=== PATIENT | male | born 1935 | race Hispanic/Latino ===

== ENCOUNTER 2018-01-18 18:49 | Inpatient (IN) | payer MEDICAID, SELFPAY ==
--- NOTE | 2018-01-18 19:55 | RAD ---
RIGHT FOOT THREE VIEWS: 01/18/18 COMPARISON: None. HISTORY: Swelling of the toes. FINDINGS: No radiopaque foreign body or subcutaneous gas. No displaced fracture or evidence of dislocation. The re is enthesophyte formation at the insertion of the Achilles tendon in origin of the plantar aponeur osis. There is mild dorsal soft tissue swelling involving the forefoot, which may be inflammatory in nature. IMPRESSION: No acute osseous abnormality. Please see above discussion. POS: [facility]
[2018-01-18 23:16] LABS: #Basophils 0.1 thou/uL (0.0-0.2); #Eosinphils 0.1 thou/uL (0.0-0.7); #Lymphocytes 1.4 thou/uL (1.20-3.40); #Monocytes 0.7 thou/uL (0.11-0.59); #Neutrophils 8.6 thou/uL (1.40-6.50); %Basophils 0.6 % (0.0-1.0); %Eosinophils 0.8 % (0.0-10.0); %Lymphocytes 12.7 % (21.0-51.0); %Monocytes 6.5 % (0.0-10.0); %Neutrophils 79.4 % (42.0-75.0); Hemoglobin 12.7 g/dL (14.0-18.0); Mean Corpuscular HGB CONC 34.9 g/dL (32.0-36.0); Mean Corpuscular Hemoglobin 31.6 pg (27.0-31.0); Mean Corpuscular Volume 90.4 fL (78.0-98.0); Mean Platelet Volume 6.6 fL (7.4-10.4); Platelet Count 315 thou/uL (130-400); RBC Distribution Width 11.9 % (11.5-14.5); Red Blood Cell (RBC) Count 4.02 mill/uL (4.70-6.10); White Blood Cell (WBC) Count 10.8 thou/uL (4.8-10.8)
[2018-01-18 23:40] LABS: ALT (SGPT) 17 U/L (8-55); AST (SGOT) 16 U/L (5-34); Albumin 4.6 g/dL (3.4-4.8); Alkaline Phosphatase 80 U/L (40-150); Anion Gap 14 mmol/L (10-20); BUN (Urea Nitrogen) 25 mg/dL (8.4-25.7); Bilirubin, Total 0.5 mg/dL (0.2-1.2); CRP (Inflammatory) 2.99 mg/dL (= or < 0.5); Calc. Creatinine Clearance 0 mL/min (70-130); Calcium 9.7 mg/dL (7.8-10.44); Carbon Dioxide 25 mmol/L (23-31); Chloride 99 mmol/L (98-107); Estimated GFR-MDRD 45; Globulin 3.4 g/dL (2.4-3.5); Glucose 144 mg/dL (83-110); Potassium 4.6 mmol/L (3.5-5.1); Sodium 133 mmol/L (136-145)
[2018-01-18] MEDS ORDERED: HYDROcodone/Acetaminophen 5/325 mg Tablet ONE (23:45)
[2018-01-19] MEDS: cefTRIAXone\\ROCEPHIN 2 GM in Sodium Chloride 0.9% 100 ML IVPB SCH ×2 (01:14→02:36)
[2018-01-19] MEDS ORDERED: Ondansetron HCl/PF 4 MG/2 ML Vial IVP PRN ×2 (01:40→05:11)
[2018-01-19] MEDS ORDERED: Acetaminophen 325 MG TAB PO PRN (01:40)
[2018-01-19] MEDS ORDERED: Ondansetron ODT 4 MG TAB SL PRN (01:40)
[2018-01-19] MEDS ORDERED: traZODone HCl 50 MG TAB PO PRN (05:11)
[2018-01-19] MEDS ORDERED: Dextrose 50% Abboject 50 ML SYRINGE SLOW IVP PRN (05:11)
[2018-01-19] MEDS ORDERED: Dextrose 5% in Water 1,000 ML IV PRN (05:11)
[2018-01-19] MEDS: HYDROcodone/Acetaminophen 10/325 mg Tablet PO PRN (05:35)
[2018-01-19] MEDS: Piperacillin/Tazobactam 3.375 GM in Sodium Chloride 0.9% 100 ML IVPB SCH ×3 (06:13→17:46)
--- NOTE | 2018-01-19 07:42 | HP ---
PRIMARY CARE PHYSICIAN: Dr. Jeancarlos Paris. CHIEF COMPLAINT: Pain and discoloration in the right foot. HISTORY OF PRESENT ILLNESS: Mr. Lopez is a very pleasant 82-year-old gentleman that has a history of diabetes and hypertension. He says that about 6 months ago, he noticed a small little pimple on his toe and it got progressively worse with time. He had seen his primary care physician who has pre scribed some oral as well as topical antibiotics. However, it has not improved and he got progressiv e pulsating cramping like pain in the foot as well as redness, swelling, and discoloration and as a r esult, he came to the emergency room for evaluation. He denies having any injury or hitting the foot against anything. He denies any fevers or chills, no nausea, no vomiting, and he has not noticed an y drainage from the area; however, due to the dark discoloration of the toes and the length of time t hat he has had the infection, he is being admitted for further evaluation. REVIEW OF SYSTEMS: All systems were reviewed and are negative except for that mentioned in the histo ry of present illness. PAST MEDICAL HISTORY: Significant for diabetes mellitus, hypertension, and prostate problems. PAST SURGICAL HISTORY: He has had a hernia repair. ALLERGIES: No known drug allergies. FAMILY HISTORY: Significant for diabetes. SOCIAL HISTORY: He is a nonsmoker, nondrinker. He has 6 children and he is . CURRENT MEDICATIONS: Include tramadol 50 mg as needed, aspirin 81 mg daily, losartan 50 mg daily, ba citracin topical, Flomax 0.4 mg daily, Metformin 850 mg twice a day, Humulin NPH 40 units in the morn ing and 20 units in the evening and regular insulin 10 units twice a day and the tramadol as Ultracet 1 tablet at bedtime. PHYSICAL EXAMINATION: GENERAL: He is alert and oriented. He appears to be in no acute distress. He is well-developed and well-nourished, in no acute distress. VITAL SIGNS: Blood pressure was 169/80, heart rate 79, respiratory rate of 18, temperature is 98.1, O2 sat is 97% on room air. HEENT: His pupils are equal, round, and reactive. Extraocular muscles are intact. Sclerae are anic teric. Throat no erythema, no exudates. NECK: No adenopathy, no bruits. LUNGS: Clear to auscultation. There is no wheezing, no rales. CARDIOVASCULAR: He had a normal S1, S2. I did not appreciate an S3 or S4. No murmurs, clicks, no r ubs. ABDOMEN: Soft, it is obese, it is nontender, nondistended. Positive for bowel sounds. No rebound o r guarding. EXTREMITIES: He has got some dark discoloration of the right foot about up to the mid calf level. Hilary vila has a dark eschar on the fourth toe, it is essentially almost completely dark purplish to black in color and a small punctate lesion on the first toe with some underlying callus. His dorsalis pedis p ulses were palpable, but they are diminished. He did, however, have good capillary refill. The left foot did not demonstrate any significant lesions and he did have some swelling in the foot as well. NEUROLOGIC: The exam is nonfocal. LABORATORY DATA AND IMAGING: White blood cell count is 10.8, hemoglobin 12.7, hematocrit is 36.4, pl atelet count is 315. Sodium 136, potassium 4.6, chloride is 99, CO2 is 25, BUN of 25, creatinine 1.5 , glucose is 144. C-reactive protein is 2.99. He had some plain films done of the foot and there wa s no obvious osseous abnormality. ASSESSMENT AND PLAN: This is a pleasant 82-year-old gentleman who presents with a diabetic foot infe ction primarily of the first and fourth toes. It is unclear whether or not he also has some vascular compromise there as well. He will be admitted to the medical floor, started on broad spectrum IV an tibiotics. We will consider Zosyn and vancomycin initially. Plain films were negative; however, an MRI will be more sensitive. Therefore, we will order an MRI and will also get lower extremity arteri al Dopplers to screen for peripheral vascular disease. We will also need to get a wound care consult and he likely will need a surgical evaluation as well. 1. For diabetes, we will go ahead and hold off on metformin for right now due to the elevated creati nine. We will continue his insulin as well as a sliding scale. 2. We will continue his usual antihypertensive medications as well as p.r.n. medicines and he will a lso be placed on deep venous thrombosis and gastrointestinal prophylaxis.
--- NOTE | 2018-01-19 08:48 | ULT ---
DOPPLER ARTERIAL EVALUATION OF BOTH LOWER EXTREMITIES: INDICATION: Diabetic foot infection. FINDINGS: There are triphasic-appearing waveforms in the right common femoral artery through the right superfic ial femoral artery. A more bifid waveform is seen within the right popliteal artery with more monoph asic low-velocity antegrade waveform seen within the posterior tibial artery. Monophasic waveform is seen within the anterior tibial artery and right dorsalis pedis artery. There is a triphasic-appearing waveform within the left common femoral artery and left femoral artery . A more biphasic-appearing waveform is seen within the left popliteal artery with monophasic-appear ing waveforms within the foreleg vasculature. IMPRESSION: Findings most consistent with severe atherosclerotic disease of the foreleg vasculature. POS: [facility]
[2018-01-19] MEDS: Docusate 100 MG CAP PO SCH ×2 (09:41→20:21)
[2018-01-19] MEDS: Enoxaparin Sodium 40 MG/0.4 ML SYRINGE SC SCH (09:41)
[2018-01-19] MEDS: Aspirin 81 mg Enteric Coated Tablet PO SCH (09:41)
[2018-01-19] MEDS: Tamsulosin HCl 0.4 MG CAP PO SCH (09:41)
[2018-01-19] MEDS: Losartan 25 MG TAB PO SCH ×2 (09:41→20:17)
[2018-01-19] MEDS: HYDROcodone/Acetaminophen 5/325 mg Tablet PO PRN ×2 (09:57→20:18)
[2018-01-19] MEDS: NPH, Human Insulin Isophane 300 UNIT/3 ML VIAL SC SCH ×2 (10:19→20:21)
--- NOTE | 2018-01-19 12:25 | MRI ---
MRI OF THE RIGHT FOOT WITHOUT CONTRAST: INDICATION: Diabetic infection. TECHNIQUE: Multiplanar, multisequence MR images were obtained of the right foot without IV contrast. Motion art ifact heavily limits image detail. A surface marker was placed upon the dorsal medial aspect of the small digit of the right foot. FINDINGS: No definite marrow signal abnormality is evident to suggest overt changes of osteomyelitis. There is diffuse edema involving subcutaneous tissues of the foot which may be related to cellulitis or lymph edema. Image detail is heavily limited due to the extent of the motion artifact. There is some cam a in the intrinsic foot musculature which may be related to denervation or myositis. No definite diana inable fluid collection is evident. IMPRESSION: 1. Heavily limited exam due to motion artifact. 2. No overt changes to suggest the presence of osteomyelitis, particularly of the small digit. 3. Lymphedema versus cellulitis of the foot. 4. Denervation versus myositis of the forefoot intrinsic musculature. POS: [facility]
[2018-01-19] MEDS: Acetaminophen 325 MG TAB PO PRN (17:47)
[2018-01-19] MEDS ORDERED: Vancomycin HCl 1.5 GM in Sodium Chloride 0.9% 250 ML 300 ML IVPB SCH (18:00)
[2018-01-19] MEDS: HumaLOG 300 UNITS/3 ML VIAL SC PRN (20:20)
[2018-01-20] MEDS: Piperacillin/Tazobactam 3.375 GM in Sodium Chloride 0.9% 100 ML IVPB SCH ×2 (01:11→06:07)
[2018-01-20] MEDS: Acetaminophen 325 MG TAB PO PRN (04:26)
[2018-01-20 05:19] LABS: Anion Gap 15 mmol/L (10-20); BUN (Urea Nitrogen) 20 mg/dL (8.4-25.7); Calc. Creatinine Clearance 49 mL/min (70-130); Calcium 9.4 mg/dL (7.8-10.44); Carbon Dioxide 23 mmol/L (23-31); Chloride 100 mmol/L (98-107); Estimated GFR-MDRD 50; Glucose 94 mg/dL (83-110); Potassium 3.7 mmol/L (3.5-5.1); Sodium 134 mmol/L (136-145)
[2018-01-20 05:54] LABS: Band 12 % (5-11); Eosinophils 3 % (0-10); Hemoglobin 12.3 g/dL (14.0-18.0); Lymphocytes 10 % (21-51); MDiff Complete? YES; Mean Corpuscular HGB CONC 33.2 g/dL (32.0-36.0); Mean Corpuscular Hemoglobin 30.2 pg (27.0-31.0); Mean Corpuscular Volume 90.9 fL (78.0-98.0); Mean Platelet Volume 7.3 fL (7.4-10.4); Monocytes 4 % (0-10); Neutrophil 71 % (42-75); PLT Morphology Comment Appears Adequate; Platelet Count 294 thou/uL (130-400); Red Blood Cell (RBC) Count 4.07 mill/uL (4.70-6.10); White Blood Cell (WBC) Count 9.2 thou/uL (4.8-10.8)
[2018-01-20] MEDS: HYDROcodone/Acetaminophen 10/325 mg Tablet PO PRN (08:00)
[2018-01-20] MEDS: Losartan 25 MG TAB PO SCH ×2 (08:00→20:07)
[2018-01-20] MEDS: Docusate 100 MG CAP PO SCH ×2 (08:00→20:07)
[2018-01-20] MEDS: Tamsulosin HCl 0.4 MG CAP PO SCH (08:01)
[2018-01-20] MEDS: Enoxaparin Sodium 40 MG/0.4 ML SYRINGE SC SCH (08:01)
[2018-01-20] MEDS: Aspirin 81 mg Enteric Coated Tablet PO SCH (08:01)
[2018-01-20] MEDS ORDERED: Prevnar 13-Val Conj/PF 0.5 ML SYRINGE IM ONE (09:00)
[2018-01-20] MEDS: NPH, Human Insulin Isophane 300 UNIT/3 ML VIAL SC SCH ×2 (09:49→20:07)
[2018-01-20] MEDS: Cefepime 2 GM in Sodium Chloride 0.9% 100 ML IVPB SCH ×2 (11:45→20:06)
--- NOTE | 2018-01-20 15:10 | PDOC.PN ---
- Subjective Encounter Start Date: 01/20/18 Encounter Start Time: 10:50 Pt seen and examined, chart reviewd in its entirety. 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 No F/c, no N/V/D/C. no CP or sOB Stu abx well. no itching or rash All systems reviewed and neg x as above - Objective Resuscitation Status: Resuscitation Status FULL:Full Resuscitation MAR Reviewed: Yes Vital Signs & Weight: Vital Signs (12 hours) Temp Pulse Resp BP Pulse Ox 01/20/18 08:00 98.1 F 69 18 95 01/20/18 07:45 98.1 F 69 18 152/75 H 94 L 01/20/18 04:05 99.5 F Weight Admit Weight 189 lb Weight 189 lb 8 oz I&O: 01/19/18 01/20/18 01/21/18 06:59 06:59 06:59 Intake Total 220 2140 600 Balance 220 2140 600 Result Diagrams: 01/20/18 04:13 01/20/18 04:13 Additional Labs: Accuchecks 01/20/18 01/20/18 01/19/18 11:27 02:53 19:59 POC Glucose 161 H 88 228 H 01/19/18 16:52 POC Glucose 150 H Radiology Reviewed by me: Yes Phys Exam - Physical Examination Constitutional: NAD HEENT: PERRLA, moist MMs, sclera anicteric, oral pharynx no lesions Neck: no nodes, no JVD, supple, full ROM Respiratory: no wheezing, no rales, no rhonchi, clear to auscultation bilateral Cardiovascular: RRR, no significant murmur, no rub Gastrointestinal: no distention, positive bowel sounds Musculoskeletal: no edema Neurological: non-focal, normal sensation, moves all 4 limbs Lymphatic: no nodes Psychiatric: normal affect, A&O x 3 Skin: no rash, normal turgor, cap refill <2 seconds Deviation from normal: 2+ fem, 1+ popliteal, thready barely palp PT bilaterally. -: 4th toe dry gangrene on right, DNU distal tip of hallux Dx/Plan (1) Cellulitis and abscess of foot, except toes Code(s): L03.119 - CELLULITIS OF UNSPECIFIED PART OF LIMB; L02.619 - CUTANEOUS ABSCESS OF UNSPECIFIED FOOT Status: Acute Comment: right dorsal foot, looks streptococcal, Clinda X 72h, Cefepime for now. to ancef soon. MRI neg for osteo (2) Ischemic necrosis of toe Code(s): I96 - GANGRENE, NOT ELSEWHERE CLASSIFIED Status: Acute Comment: 4th toe of right foot. dont think we can amputate because proximal wound would nto heal. suspect would need minimum of TMA. Abx for now, watch, may need to get vascular surgery involved (3) Ischemic ulcer of toe of right foot Code(s): L97.519 - NON-PRS CHRONIC ULCER OTH PRT RIGHT FOOT W UNSP SEVERITY Status: Acute Qualifiers: Non-pressure ulcer stage: with fat layer exposed Qualified Code(s): L97.512 - Non-pressure chronic ulcer of other part of right foot with fat layer exposed Comment: John 2 (4) DM2 (diabetes mellitus, type 2) Status: Chronic Qualifiers: Diabetes mellitus senior living insulin use: unspecified terminal press operator insulin use status Diabetes mellitus complication status: with neurologic complications Diabetes mellitus complication detail: with polyneuropathy Qualified Code(s): E11.42 - Type 2 diabetes mellitus with diabetic polyneuropathy (5) HTN (hypertension) Code(s): I10 - ESSENTIAL (PRIMARY) HYPERTENSION Status: Chronic Qualifiers: Hypertension type: essential hypertension Qualified Code(s): I10 - Essential (primary) hypertension (6) PVD (peripheral vascular disease) with claudication Code(s): I73.9 - PERIPHERAL VASCULAR DISEASE, UNSPECIFIED Status: Chronic Comment: BLE, 3+ triphasic in deep femoral, biphasic through popliteal, monophasic to BLE, nonpalpable distal pulses. - Plan cont current plan of care, continue antibiotics * .
[2018-01-20] MEDS ORDERED: Clindamycin/D5W 300 MG/50 ML BAG IVPB SCH (15:15)
[2018-01-20] MEDS: Clindamycin/D5W 900 MG in Premix Bag 1 BAG IVPB SCH (16:02)
[2018-01-20] MEDS: HumaLOG 300 UNITS/3 ML VIAL SC PRN (20:08)
[2018-01-21] MEDS: Clindamycin/D5W 900 MG in Premix Bag 1 BAG IVPB SCH ×4 (00:05→23:11)
[2018-01-21] MEDS: HYDROcodone/Acetaminophen 5/325 mg Tablet PO PRN (00:05)
[2018-01-21 04:42] LABS: #Eosinphils 0.2 thou/uL (0.0-0.7); #Lymphocytes 1.7 thou/uL (1.20-3.40); #Monocytes 0.9 thou/uL (0.11-0.59); #Neutrophils 6.3 thou/uL (1.40-6.50); %Basophils 0.4 % (0.0-1.0); %Eosinophils 1.8 % (0.0-10.0); %Lymphocytes 18.4 % (21.0-51.0); %Monocytes 10.1 % (0.0-10.0); %Neutrophils 69.4 % (42.0-75.0); Hemoglobin 11.5 g/dL (14.0-18.0); Mean Corpuscular HGB CONC 34.5 g/dL (32.0-36.0); Mean Corpuscular Hemoglobin 31.3 pg (27.0-31.0); Mean Corpuscular Volume 90.7 fL (78.0-98.0); Platelet Count 273 thou/uL (130-400); RBC Distribution Width 11.9 % (11.5-14.5); Red Blood Cell (RBC) Count 3.68 mill/uL (4.70-6.10); White Blood Cell (WBC) Count 9.1 thou/uL (4.8-10.8)
[2018-01-21 04:54] LABS: Hemoglobin A1c 6.7 % (4.0-6.0)
[2018-01-21 04:58] LABS: Anion Gap 13 mmol/L (10-20); BUN (Urea Nitrogen) 20 mg/dL (8.4-25.7); Calc. Creatinine Clearance 53 mL/min (70-130); Calcium 9.1 mg/dL (7.8-10.44); Carbon Dioxide 25 mmol/L (23-31); Chloride 103 mmol/L (98-107); Estimated GFR-MDRD 55; Glucose 62 mg/dL (83-110); Magnesium 2.2 mg/dL (1.6-2.6); Potassium 3.8 mmol/L (3.5-5.1); Sodium 137 mmol/L (136-145)
[2018-01-21] MEDS: HYDROcodone/Acetaminophen 10/325 mg Tablet PO PRN ×2 (08:11→20:34)
[2018-01-21] MEDS: Aspirin 81 mg Enteric Coated Tablet PO SCH (08:12)
[2018-01-21] MEDS: Losartan 25 MG TAB PO SCH ×2 (08:12→20:34)
[2018-01-21] MEDS: Tamsulosin HCl 0.4 MG CAP PO SCH (08:12)
[2018-01-21] MEDS: Docusate 100 MG CAP PO SCH ×2 (08:12→20:33)
[2018-01-21] MEDS: Enoxaparin Sodium 40 MG/0.4 ML SYRINGE SC SCH (08:13)
[2018-01-21] MEDS: NPH, Human Insulin Isophane 300 UNIT/3 ML VIAL SC SCH ×2 (08:13→21:25)
[2018-01-21] MEDS: Cefepime 2 GM in Sodium Chloride 0.9% 100 ML IVPB SCH ×3 (09:41→21:35)
--- NOTE | 2018-01-21 14:24 | PDOC.PN ---
- Subjective Encounter Start Date: 01/21/18 Encounter Start Time: 14:22 Subjective: reports some pain in the affected toe.no fever/chills -: weak.care discussed w son at bedside - Objective Resuscitation Status: Resuscitation Status FULL:Full Resuscitation MAR Reviewed: Yes Vital Signs & Weight: Vital Signs (12 hours) Temp Pulse Resp BP Pulse Ox 01/21/18 08:09 97.5 F L 70 16 162/67 H 96 01/21/18 08:00 97.5 F L 70 16 97 Weight Admit Weight 189 lb Weight 189 lb 8 oz I&O: 01/20/18 01/21/18 01/22/18 06:59 06:59 06:59 Intake Total 2140 1510 720 Balance 2140 1510 720 Result Diagrams: 01/21/18 03:53 01/21/18 03:53 Additional Labs: Accuchecks 01/21/18 01/21/18 01/20/18 11:47 05:06 20:04 POC Glucose 133 H 67 L 236 H 01/20/18 16:47 POC Glucose 260 H Microbiology 01/18/18 23:30 Venous blood - Left Arm Blood Culture - Preliminary NO GROWTH AT 48 HOURS 01/18/18 23:10 Venous blood - Right Arm Blood Culture - Preliminary NO GROWTH AT 48 HOURS labs reviewed Radiology Reviewed by me: Yes (Arterial doppler LE-severe b/l disease) Phys Exam - Physical Examination Constitutional: NAD HEENT: PERRLA, moist MMs, sclera anicteric, oral pharynx no lesions Neck: no nodes, no JVD, supple, full ROM Respiratory: no wheezing, no rales, no rhonchi, clear to auscultation bilateral Cardiovascular: RRR, no significant murmur Gastrointestinal: soft, non-tender, no distention, positive bowel sounds Musculoskeletal: no edema, pulses present Toe dressings Neurological: non-focal, normal sensation, moves all 4 limbs Psychiatric: normal affect, A&O x 3 Dx/Plan (1) Ischemic necrosis of toe Code(s): I96 - GANGRENE, NOT ELSEWHERE CLASSIFIED Status: Acute (2) Ischemic ulcer of toe of right foot Code(s): L97.519 - NON-PRS CHRONIC ULCER OTH PRT RIGHT FOOT W UNSP SEVERITY Status: Acute Qualifiers: Non-pressure ulcer stage: with fat layer exposed Qualified Code(s): L97.512 - Non-pressure chronic ulcer of other part of right foot with fat layer exposed Comment: John 2 (3) DM2 (diabetes mellitus, type 2) Status: Chronic Qualifiers: Diabetes mellitus assisted insulin use: unspecified marketing administrative assistant insulin use status Diabetes mellitus complication status: with neurologic complications Diabetes mellitus complication detail: with polyneuropathy Qualified Code(s): E11.42 - Type 2 diabetes mellitus with diabetic polyneuropathy (4) HTN (hypertension) Code(s): I10 - ESSENTIAL (PRIMARY) HYPERTENSION Status: Chronic Qualifiers: Hypertension type: essential hypertension Qualified Code(s): I10 - Essential (primary) hypertension (5) PVD (peripheral vascular disease) with claudication Code(s): I73.9 - PERIPHERAL VASCULAR DISEASE, UNSPECIFIED Status: Chronic Comment: BLE, 3+ triphasic in deep femoral, biphasic through popliteal, monophasic to BLE, nonpalpable distal pulses. - Plan plan discussed w/ family, continue antibiotics, out of bed/ambulate, DVT proph w /SCDs Pt w gangrene of R 4th toe w severe PVD on doppler -: will likley need amputation .will consult GS and ID -: cont ABx for now. Follow Blood cx -: may need CTS consult prior to DC -: Blood sugar labile.cont meds as below.watch for hypoglycemia.reduce Novolin * .am labs * Plan discussed w son in detail Review of Systems - Review of Systems Constitutional: weakness, malaise. negative: fever, chills, sweats, other Respiratory: negative: Cough, Dry, Shortness of Breath, Hemoptysis, SOB with Excertion, Pleuritic Pain, Sputum, Wheezing Cardiovascular: negative: chest pain, palpitations, orthopnea, paroxysmal nocturnal dyspnea, edema, light headedness, other Gastrointestinal: negative: Nausea, Vomiting, Abdominal Pain, Diarrhea, Constipation, Melena, Hematochezia, Other Genitourinary: negative: Dysuria, Frequency, Incontinence, Hematuria, Retention , Other Musculoskeletal: Foot Pain. negative: Neck Pain, Shoulder Pain, Arm Pain, Back Pain, Hand Pain, Leg Pain, Other Neurological: negative: Weakness, Numbness, Incoordination, Change in Speech, Confusion, Seizures, Other - Medications/Allergies Allergies/Adverse Reactions: Allergies Allergy/AdvReac Type Severity Reaction Status Date / Time No Known Allergies Allergy Unverified 01/18/18 23:55 Medications: Current Medications Acetaminophen (Tylenol) 650 mg PO Q4H PRN PRN Reason: Headache/Fever or Pain Last Admin: 01/20/18 04:26 Dose: 650 mg Hydrocodone Bitart/Acetaminophen ([place] 5/325) 1 tab PO Q4H PRN PRN Reason: Moderate Pain (4-6) Last Admin: 01/19/18 20:18 Dose: 1 tab Hydrocodone Bitart/Acetaminophen ([place] 10/325) 2 tab PO Q4H PRN PRN Reason: Severe Pain (7-10) Last Admin: 01/21/18 08:11 Dose: 2 tab Hydrocodone Bitart/Acetaminophen ([place] 5/325) 2 tab PO Q4H PRN PRN Reason: Moderate Pain (4-6) Last Admin: 01/21/18 00:05 Dose: 2 tab Aspirin (Ecotrin) 81 mg PO DAILY COUNTS INCLUDE 234 BEDS AT THE [facility] Last Admin: 01/21/18 08:12 Dose: 81 mg Dextrose/Water (Dextrose 50%) 25 gm SLOW IVP PRN PRN PRN Reason: Hypoglycemia Docusate Sodium (Colace) 100 mg PO BID COUNTS INCLUDE 234 BEDS AT THE [facility] Last Admin: 01/21/18 08:12 Dose: 100 mg Enoxaparin Sodium (Lovenox) 40 mg SC 0900 COUNTS INCLUDE 234 BEDS AT THE [facility] Last Admin: 01/21/18 08:13 Dose: 40 mg Glucagon (Glucagon) 1 mg IM PRN PRN PRN Reason: Hypoglycemia Hydralazine HCl (Apresoline) 10 mg SLOW IVP Q3H PRN PRN Reason: SBP > 180 Dextrose/Water (D5w) 1,000 mls @ 0 mls/hr IV .Q0M PRN; As Directed PRN Reason: Hypoglycemia Cefepime HCl 2 gm/ Sodium (Chloride) 100 mls @ 200 mls/hr IVPB Q12HR COUNTS INCLUDE 234 BEDS AT THE [facility] Last Admin: 01/21/18 09:41 Dose: 100 mls Clindamycin Phosphate/Dextrose (900 mg/ Device) 50 mls @ 100 mls/hr IVPB 0800, 1600,2359 COUNTS INCLUDE 234 BEDS AT THE [facility] Last Admin: 01/21/18 08:13 Dose: 50 mls Insulin Human Lispro (Humalog) 0 units SC .MODERATE SLIDING SC PRN PRN Reason: Moderate Correctional Scale Insulin Human Lispro (Humalog) 0 units SC .BEDTIME SLIDING SC PRN PRN Reason: Bedtime Correctional Scale Last Admin: 01/20/18 20:08 Dose: 2 unit Insulin Human NPH (Humulin N) 20 unit SC HS COUNTS INCLUDE 234 BEDS AT THE [facility] Last Admin: 01/20/18 20:07 Dose: 20 unit Insulin Human NPH (Humulin N) 40 unit SC DAILY COUNTS INCLUDE 234 BEDS AT THE [facility] Last Admin: 01/21/18 08:13 Dose: 40 unit Lactulose (Lactulose) 20 gm PO DAILYPRN PRN PRN Reason: Constipation Losartan Potassium (Cozaar) 50 mg PO BID COUNTS INCLUDE 234 BEDS AT THE [facility] Last Admin: 01/21/18 08:12 Dose: 50 mg Ondansetron HCl (Zofran Odt) 4 mg PO Q6H PRN PRN Reason: Nausea/Vomiting Ondansetron HCl (Zofran) 4 mg IVP Q6H PRN PRN Reason: Nausea/Vomiting Tamsulosin HCl (Flomax) 0.4 mg PO DAILY COUNTS INCLUDE 234 BEDS AT THE [facility] Last Admin: 01/21/18 08:12 Dose: 0.4 mg Trazodone HCl (Desyrel) 50 mg PO HSPRN PRN PRN Reason: Insomnia Last Admin: 01/19/18 20:18 Dose: 50 mg
[2018-01-22 04:52] LABS: #Basophils 0.1 thou/uL (0.0-0.2); #Eosinphils 0.2 thou/uL (0.0-0.7); #Lymphocytes 1.4 thou/uL (1.20-3.40); #Monocytes 0.6 thou/uL (0.11-0.59); #Neutrophils 5.2 thou/uL (1.40-6.50); %Basophils 0.7 % (0.0-1.0); %Eosinophils 2.7 % (0.0-10.0); %Lymphocytes 19.2 % (21.0-51.0); %Monocytes 7.5 % (0.0-10.0); %Neutrophils 69.9 % (42.0-75.0); Hemoglobin 11.2 g/dL (14.0-18.0); Mean Corpuscular HGB CONC 34.1 g/dL (32.0-36.0); Mean Corpuscular Hemoglobin 30.7 pg (27.0-31.0); Platelet Count 296 thou/uL (130-400); RBC Distribution Width 11.8 % (11.5-14.5); Red Blood Cell (RBC) Count 3.65 mill/uL (4.70-6.10); White Blood Cell (WBC) Count 7.5 thou/uL (4.8-10.8)
[2018-01-22 04:58] LABS: Anion Gap 12 mmol/L (10-20); BUN (Urea Nitrogen) 19 mg/dL (8.4-25.7); Calc. Creatinine Clearance 52 mL/min (70-130); Carbon Dioxide 23 mmol/L (23-31); Chloride 102 mmol/L (98-107); Estimated GFR-MDRD 53; Glucose 202 mg/dL (83-110); Sodium 133 mmol/L (136-145)
[2018-01-22] MEDS: Clindamycin/D5W 900 MG in Premix Bag 1 BAG IVPB SCH ×3 (08:04→23:27)
[2018-01-22] MEDS: HYDROcodone/Acetaminophen 10/325 mg Tablet PO PRN ×2 (08:06→17:40)
[2018-01-22] MEDS: Docusate 100 MG CAP PO SCH ×2 (08:36→20:05)
[2018-01-22] MEDS: Aspirin 81 mg Enteric Coated Tablet PO SCH (08:36)
[2018-01-22] MEDS: Enoxaparin Sodium 40 MG/0.4 ML SYRINGE SC SCH (08:36)
[2018-01-22] MEDS: NPH, Human Insulin Isophane 300 UNIT/3 ML VIAL SC SCH (08:36)
[2018-01-22] MEDS: Tamsulosin HCl 0.4 MG CAP PO SCH (08:36)
--- NOTE | 2018-01-22 09:37 | CON ---
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 He presents with right foot problems. He has been admitted by H ospitalist Service from the emergency room 01/19/2018. He has been on clindamycin and cefepime. He has dry gangrene of his right fourth toe with cellulitis above ankle which has resolved with antibiot ic therapy. He has had plain films, MRIs revealing soft tissue changes, but no osteo. He has since August experienced a shoe irritation of his left great toe tip which is improved with local wound c are. The patient has been treating this with local wound care prescribed in [place], an antiseptic sp ray, antibiotic cream he does not know the name of. He has had ultrasound evaluation vascular reveal ing disease in the SFA, probably stenosis, and below the knee disease. This correlates with physical findings. There are palpable femoral, popliteal pulses bilaterally. Non-palpable pedal pulses on e ither feet and very faintly dopplerable posterior tibial, nondopplerable dorsalis pedis right foot an d left foot. He has chronic venous stasis changes both feet and legs. He has some blistering of the skin, sloughing of skin over the distal foot dorsally. This has improved. Actually has had resolvi ng cellulitis. He has never smoked. His renal function is normal. GFR 53, creatinine 1.29, BUN 19. ALLERGIES: None. TOBACCO: None. ALCOHOL: None. MEDICATIONS: At home, he takes NPH insulin, tramadol, metformin, Lamisil, Flomax, losartan, aspirin, and the creams anesthetic spray as described. PAST SURGICAL HISTORY: Testicular surgery. PAST MEDICAL HISTORY: Noncontributory except for diabetes mellitus, insulin-dependent, hypertension, and prostate problems. He reports that he had a hernia repair, but the patient states he had testic ular problems, some testicular surgery. REVIEW OF SYSTEMS: Noncontributory. FAMILY HISTORY: Noncontributory. PHYSICAL EXAMINATION: VITAL SIGNS: Height 5 foot 10, 189 pounds, 27 BMI, 98.3, 73, 178/84. HEENT: Unremarkable. LUNGS: Clear to auscultation. CARDIAC: Regular rate and rhythm without murmur or gallop. ABDOMEN: Soft, nontender. EXTREMITIES: Palpable femoral and popliteal pulses bilaterally, nonpalpable distal pedal pulses bila terally. Chronic venous stasis changes to feet and lower legs. He has excoriation and granulation t issue at the tip of the right great toe. There is no infection. This appears to be healing. He sta yu this has been present since August. Right fourth toe was foul smelling and gangrene. He has e vidence of resolved cellulitis from his lower leg above the ankle. He has sloughing of the skin, bli stering skin over the distal forefoot at the base of the fourth phalanx. LABORATORY: Laboratories as noted. Sodium 133, potassium 4.0, BUN 19, creatinine 1.59, GFR 53. Acc u-Cheks 282 to 117. White count 7, hemoglobin 11.2, platelet count 296,000. ASSESSMENT AND PLAN: 1. Peripheral artery disease with a significant below the knee disease. He probably has some stenot ic disease in his SFA. Prior to performing any amputation, I would recommend a vascular study and wooten ve consulted Dr. Romo or Dr. Merino to see him regarding that. Would keep him n.p.o. in case they wo uld want to do that today. If they are not planning intervention today he could eat. He probably w ill need amputation of this toe in the next few days after a vascular evaluation 2. Diabetes mellitus, insulin dependent.
[2018-01-22] MEDS: Cefepime 2 GM in Sodium Chloride 0.9% 100 ML IVPB SCH ×2 (09:52→20:03)
[2018-01-22] MEDS: Losartan 25 MG TAB PO SCH ×2 (09:53→20:05)
--- NOTE | 2018-01-22 13:57 | PDOC.PN ---
- Subjective Encounter Start Date: 01/22/18 Encounter Start Time: 13:55 Subjective: feels better but still has significant pain in affected toe -: no fever/chills - Objective Resuscitation Status: Resuscitation Status FULL:Full Resuscitation MAR Reviewed: Yes Vital Signs & Weight: Vital Signs (12 hours) Temp Pulse Resp BP Pulse Ox 01/22/18 11:33 98.5 F 67 16 173/84 H 95 01/22/18 08:15 98.3 F 73 18 178/84 H 93 L 01/22/18 08:00 98.3 F 73 18 Weight Admit Weight 189 lb Weight 189 lb 8 oz I&O: 01/21/18 01/22/18 01/23/18 06:59 06:59 06:59 Intake Total 1510 1520 Balance 1510 1520 Result Diagrams: 01/22/18 03:57 01/22/18 03:57 Additional Labs: Accuchecks 01/22/18 01/22/18 01/21/18 11:37 05:39 20:09 POC Glucose 116 H 117 H 282 H 01/21/18 16:46 POC Glucose 173 H Microbiology 01/18/18 23:30 Venous blood - Left Arm Blood Culture - Preliminary NO GROWTH AT 48 HOURS 01/18/18 23:10 Venous blood - Right Arm Blood Culture - Preliminary NO GROWTH AT 48 HOURS labs reviewed Phys Exam - Physical Examination Constitutional: NAD HEENT: PERRLA, moist MMs, sclera anicteric, oral pharynx no lesions Neck: no nodes, no JVD, supple, full ROM Respiratory: no wheezing, no rales, no rhonchi, clear to auscultation bilateral Cardiovascular: RRR, no significant murmur Gastrointestinal: soft, non-tender, no distention, positive bowel sounds Musculoskeletal: no edema, pulses present Gangrenous R 4th toe,dry.shallow ulceration great toe tip & plantar surface Neurological: non-focal, normal sensation, moves all 4 limbs Psychiatric: normal affect, A&O x 3 Skin: no rash Dx/Plan (1) Ischemic necrosis of toe Code(s): I96 - GANGRENE, NOT ELSEWHERE CLASSIFIED Status: Acute (2) Ischemic ulcer of toe of right foot Code(s): L97.519 - NON-PRS CHRONIC ULCER OTH PRT RIGHT FOOT W UNSP SEVERITY Status: Acute Qualifiers: Non-pressure ulcer stage: with fat layer exposed Qualified Code(s): L97.512 - Non-pressure chronic ulcer of other part of right foot with fat layer exposed Comment: John 2 (3) Cellulitis and abscess of foot, except toes Code(s): L03.119 - CELLULITIS OF UNSPECIFIED PART OF LIMB; L02.619 - CUTANEOUS ABSCESS OF UNSPECIFIED FOOT Status: Acute Comment: right dorsal foot, looks streptococcal, Clinda X 72h, Cefepime for now. to ancef soon. MRI neg for osteo (4) DM2 (diabetes mellitus, type 2) Status: Chronic Qualifiers: Diabetes mellitus care home insulin use: unspecified watermaster insulin use status Diabetes mellitus complication status: with neurologic complications Diabetes mellitus complication detail: with polyneuropathy Qualified Code(s): E11.42 - Type 2 diabetes mellitus with diabetic polyneuropathy (5) HTN (hypertension) Code(s): I10 - ESSENTIAL (PRIMARY) HYPERTENSION Status: Chronic Qualifiers: Hypertension type: essential hypertension Qualified Code(s): I10 - Essential (primary) hypertension (6) PVD (peripheral vascular disease) with claudication Code(s): I73.9 - PERIPHERAL VASCULAR DISEASE, UNSPECIFIED Status: Chronic Comment: BLE, 3+ triphasic in deep femoral, biphasic through popliteal, monophasic to BLE, nonpalpable distal pulses. - Plan plan discussed w/ family, continue antibiotics, PT/OT, out of bed/ambulate, DVT proph w/SCDs cont emipric ABx. apprecaier GS and CTS input -: Arterial angiogram today w possible intervention if needed for PAD -: will likey need amputation of gangrenous toe. -: hemodynamically stable. -: insulin dose reduced yesterday for lower Bld suf=gars.monitor.ISS/accucheck * family updated.pt agreeable w plan * am labs Review of Systems - Review of Systems Constitutional: weakness, malaise. negative: fever, chills, sweats, other ENT: negative: Ear Pain, Ear Discharge, Nose Pain, Nose Discharge, Nose Congestion, Mouth Pain, Mouth Swelling, Throat Pain, Throat Swelling, Other Respiratory: negative: Cough, Dry, Shortness of Breath, Hemoptysis, SOB with Excertion, Pleuritic Pain, Sputum, Wheezing Cardiovascular: negative: chest pain, palpitations, orthopnea, paroxysmal nocturnal dyspnea, edema, light headedness, other Gastrointestinal: negative: Nausea, Vomiting, Abdominal Pain, Diarrhea, Constipation, Melena, Hematochezia, Other Genitourinary: negative: Dysuria, Frequency, Incontinence, Hematuria, Retention , Other Musculoskeletal: Foot Pain. negative: Neck Pain, Shoulder Pain, Arm Pain, Back Pain, Hand Pain, Leg Pain, Other Skin: negative: Rash, Lesions, Rick, Bruising, Other Neurological: negative: Weakness, Numbness, Incoordination, Change in Speech, Confusion, Seizures, Other - Medications/Allergies Allergies/Adverse Reactions: Allergies Allergy/AdvReac Type Severity Reaction Status Date / Time No Known Allergies Allergy Unverified 01/18/18 23:55 Medications: Current Medications Acetaminophen (Tylenol) 650 mg PO Q4H PRN PRN Reason: Headache/Fever or Pain Last Admin: 01/20/18 04:26 Dose: 650 mg Hydrocodone Bitart/Acetaminophen ([place] 10/325) 2 tab PO Q4H PRN PRN Reason: Severe Pain (7-10) Last Admin: 01/22/18 08:06 Dose: 2 tab Hydrocodone Bitart/Acetaminophen ([place] 5/325) 2 tab PO Q4H PRN PRN Reason: Moderate Pain (4-6) Last Admin: 01/21/18 00:05 Dose: 2 tab Aspirin (Ecotrin) 81 mg PO DAILY [facility] Last Admin: 01/22/18 08:36 Dose: Not Given Clonidine (Catapres) 0.1 mg PO Q4H PRN PRN Reason: SBP>160 Dextrose/Water (Dextrose 50%) 25 gm SLOW IVP PRN PRN PRN Reason: Hypoglycemia Docusate Sodium (Colace) 100 mg PO BID [facility] Last Admin: 01/22/18 08:36 Dose: Not Given Enoxaparin Sodium (Lovenox) 40 mg SC 0900 [facility] Last Admin: 01/22/18 08:36 Dose: Not Given Glucagon (Glucagon) 1 mg IM PRN PRN PRN Reason: Hypoglycemia Hydralazine HCl (Apresoline) 10 mg SLOW IVP Q3H PRN PRN Reason: SBP > 180 Dextrose/Water (D5w) 1,000 mls @ 0 mls/hr IV .Q0M PRN; As Directed PRN Reason: Hypoglycemia Clindamycin Phosphate/Dextrose (900 mg/ Device) 50 mls @ 100 mls/hr IVPB 0800, 1600,2359 [facility] Last Admin: 01/22/18 08:04 Dose: 50 mls Cefepime HCl 2 gm/ Sodium (Chloride) 100 mls @ 200 mls/hr IVPB Q12HR [facility] Last Admin: 01/22/18 09:52 Dose: 100 mls Insulin Human Lispro (Humalog) 0 units SC .MODERATE SLIDING SC PRN PRN Reason: Moderate Correctional Scale Insulin Human Lispro (Humalog) 0 units SC .BEDTIME SLIDING SC PRN PRN Reason: Bedtime Correctional Scale Last Admin: 01/20/18 20:08 Dose: 2 unit Insulin Human NPH (Humulin N) 20 unit SC HS [facility] Last Admin: 01/21/18 21:25 Dose: 20 unit Insulin Human NPH (Humulin N) 20 unit SC DAILY [facility] Last Admin: 01/22/18 08:36 Dose: Not Given Lactulose (Lactulose) 20 gm PO DAILYPRN PRN PRN Reason: Constipation Losartan Potassium (Cozaar) 50 mg PO BID [facility] Last Admin: 01/22/18 09:53 Dose: 50 mg Morphine Sulfate (Morphine) 2 mg SLOW IVP Q4H PRN PRN Reason: Severe Pain (7-10) Ondansetron HCl (Zofran Odt) 4 mg PO Q6H PRN PRN Reason: Nausea/Vomiting Ondansetron HCl (Zofran) 4 mg IVP Q6H PRN PRN Reason: Nausea/Vomiting Tamsulosin HCl (Flomax) 0.4 mg PO DAILY [facility] Last Admin: 01/22/18 08:36 Dose: Not Given Trazodone HCl (Desyrel) 50 mg PO HSPRN PRN PRN Reason: Insomnia Last Admin: 01/19/18 20:18 Dose: 50 mg
[2018-01-22] MEDS: hydrALAZINE 20 MG/ML VIAL SLOW IVP PRN (17:38)
[2018-01-22] MEDS: HumaLOG 300 UNITS/3 ML VIAL SC PRN (17:41)
--- NOTE | 2018-01-23 00:56 | CON ---
DATE OF CONSULTATION: 01/22/2018 REASON FOR CONSULTATION: Gangrene, right fourth toe. HISTORY OF PRESENT ILLNESS: An 82-year-old patient who has history of type 2 diabetes and hypertension and lives in [place], came here to visit relatives, reportedly has had chronic problems with his right foot and now has progressed to what appears to be overt gangrene fourth toe. He also has a chronic ulcer at the tip of the right first toe. REVIEW OF SYSTEMS: Denies any headaches, no change in visual symptoms, sore throat, odynophagia, dysphagia. No shortness of breath or chest pain, no cough. No abdominal pain, diarrhea, or genitourinary symptoms. No neurological symptoms. PAST MEDICAL HISTORY: Type 2 diabetes, hypertension, prostate enlargement. PAST SURGICAL HISTORY: Hernia repair. ALLERGIES: None. FAMILY HISTORY: Type 2 diabetes. SOCIAL HISTORY: Never a smoker, retired, lives in [place]. CURRENT MEDICATIONS: Include [place], cefepime, clindamycin, clonidine, glucagon , hydralazine, insulin, losartan, trazodone. PHYSICAL EXAMINATION: VITAL SIGNS: Essentially T-max 101.5 on 01/19, currently, normalized. BP 170/ 84, pulse 67. SKIN: Demonstrates the area of gangrene of the entire fourth toe. There is evidence of ulceration with a dark scab at the base, round shaped, measuring about 2 cm at the tip of the right first toe. There is evidence of onychodystrophy and onycholysis, thinning of the dermis in the right foot. Cap refill was delayed. No lymphadenopathy. HEENT: Noncontributory. NECK: Supple. LUNGS: With symmetric clear breath sounds. HEART: S1, S2, regular rate without murmurs. ABDOMEN: Soft, not distended or tender. No ascites. No bladder distention. EXTREMITIES: No joint inflammatory activity outside the involved area. Right popliteals are 1+, left popliteal 1+. In the right foot, I could not feel any dorsalis pedis or posterior tibialis pulses. He moves extremities equally. NEUROLOGIC: Cognitive function appears to be intact. LABORATORY AND DIAGNOSTIC DATA: White cell count 10.8 and 7.5, hemoglobin 11.2 , platelets 296,000. Chemistry: Creatinine 1.29, which is stable from admission. MRI, which was completed in the right lower extremity and it showed motion artifact, no overt changes suggestive of osteomyelitis. ASSESSMENT: Type 2 diabetes with evidence of peripheral vascular disease and gangrene fourth toe. DISCUSSION: The patient is supposed to undergo vascular evaluation to determine if he would be a candidate for immediate amputation or if he would need intervention if feasible to decrease the risk of failure of amputation due to extension of the area of necrosis. Antibiotics to be continued until the decision to amputate is completed. If the patient has microvascular disease if he is not amenable to revascularization and he would be at high risk for further higher levels of amputation. I would transition him to oral antimicrobials in the next few days as long as blood cultures remain negative, so summarizing vascular studies and then the decision regarding amputation if vascular studies determine feasibility of revascularization and improving the flow of blood to right foot, then that would decrease the risk of higher levels of amputation. Otherwise, he would probably end up with BKA sooner or later. TANVI
[2018-01-23] MEDS: HYDROcodone/Acetaminophen 5/325 mg Tablet PO PRN ×3 (01:33→16:32)
[2018-01-23 04:33] LABS: Anion Gap 13 mmol/L (10-20); BUN (Urea Nitrogen) 21 mg/dL (8.4-25.7); Calc. Creatinine Clearance 52 mL/min (70-130); Calcium 8.8 mg/dL (7.8-10.44); Carbon Dioxide 23 mmol/L (23-31); Chloride 102 mmol/L (98-107); Estimated GFR-MDRD 54; Glucose 200 mg/dL (83-110); Potassium 4.5 mmol/L (3.5-5.1); Sodium 133 mmol/L (136-145)
[2018-01-23] MEDS: Clindamycin/D5W 900 MG in Premix Bag 1 BAG IVPB SCH ×3 (07:14→23:33)
[2018-01-23] MEDS: Losartan 25 MG TAB PO SCH ×3 (07:53→20:34)
[2018-01-23] MEDS: Aspirin 81 mg Enteric Coated Tablet PO SCH ×2 (07:53→10:08)
[2018-01-23] MEDS: Tamsulosin HCl 0.4 MG CAP PO SCH (07:53)
[2018-01-23] MEDS: Enoxaparin Sodium 40 MG/0.4 ML SYRINGE SC SCH (07:53)
[2018-01-23] MEDS: Docusate 100 MG CAP PO SCH ×2 (07:53→20:34)
[2018-01-23] MEDS: Cefepime 2 GM in Sodium Chloride 0.9% 100 ML IVPB SCH ×2 (08:49→20:50)
[2018-01-23] MEDS: hydrALAZINE 20 MG/ML VIAL SLOW IVP PRN (09:34)
[2018-01-23] MEDS ORDERED: Amlodipine 10 MG TAB PO SCH (10:00)
[2018-01-23] MEDS: NPH, Human Insulin Isophane 300 UNIT/3 ML VIAL SC SCH ×2 (10:08→20:35)
[2018-01-23] MEDS ORDERED: Iopamidol 370 76% 50 ML VIAL FS ONE (12:54)
[2018-01-23] MEDS ORDERED: Fentanyl 100 MCG/2 ML VIAL ONE ×2 (13:30→14:07)
[2018-01-23] MEDS ORDERED: Midazolam HCl 2 mg/2 ml Vial ONE (13:32)
[2018-01-23] MEDS ORDERED: Lidocaine 1% (PF) 30 ML VIAL ONE (13:51)
[2018-01-23] MEDS ORDERED: hydrALAZINE 20 MG/ML VIAL ONE (14:06)
--- NOTE | 2018-01-23 15:30 | PDOC.PN ---
- Subjective Encounter Start Date: 01/23/18 Encounter Start Time: 15:28 Subjective: c/o pain in the foot.has not requested any pain med for it -: no other compliants -: care discussed w family w help of wallisian interpretation - Objective Resuscitation Status: Resuscitation Status FULL:Full Resuscitation MAR Reviewed: Yes Vital Signs & Weight: Vital Signs (12 hours) Temp Pulse Resp BP BP Pulse Ox 01/23/18 11:56 98.3 F 71 16 153/73 H 96 01/23/18 10:07 65 176/76 H 01/23/18 09:34 65 176/76 H 01/23/18 07:56 97.6 F 65 16 01/23/18 07:32 97.6 F 65 16 179/71 H 94 L 01/23/18 04:00 98.1 F 66 20 159/73 H 96 Weight Admit Weight 189 lb Weight 189 lb 8 oz I&O: 01/22/18 01/23/18 01/24/18 06:59 06:59 06:59 Intake Total 1520 240 Balance 1520 240 Result Diagrams: 01/22/18 03:57 01/23/18 03:55 Additional Labs: Accuchecks 01/23/18 01/23/18 01/22/18 11:56 05:04 20:30 POC Glucose 150 H 165 H 292 H 01/22/18 17:07 POC Glucose 266 H Microbiology 01/18/18 23:30 Venous blood - Left Arm Blood Culture - Preliminary NO GROWTH AT 48 HOURS 01/18/18 23:10 Venous blood - Right Arm Blood Culture - Preliminary NO GROWTH AT 48 HOURS labs reviewed Phys Exam - Physical Examination Constitutional: NAD HEENT: PERRLA, moist MMs, sclera anicteric, oral pharynx no lesions Neck: no nodes, no JVD, supple, full ROM Respiratory: no wheezing, no rales, no rhonchi, clear to auscultation bilateral Cardiovascular: RRR, no significant murmur, no rub Gastrointestinal: soft, non-tender, no distention, positive bowel sounds Musculoskeletal: no edema, pulses present Neurological: non-focal, normal sensation, moves all 4 limbs Psychiatric: normal affect, A&O x 3 Dx/Plan (1) Ischemic necrosis of toe Code(s): I96 - GANGRENE, NOT ELSEWHERE CLASSIFIED Status: Acute (2) Ischemic ulcer of toe of right foot Code(s): L97.519 - NON-PRS CHRONIC ULCER OTH PRT RIGHT FOOT W UNSP SEVERITY Status: Acute Qualifiers: Non-pressure ulcer stage: with fat layer exposed Qualified Code(s): L97.512 - Non-pressure chronic ulcer of other part of right foot with fat layer exposed Comment: John 2 (3) Cellulitis and abscess of foot, except toes Code(s): L03.119 - CELLULITIS OF UNSPECIFIED PART OF LIMB; L02.619 - CUTANEOUS ABSCESS OF UNSPECIFIED FOOT Status: Acute Comment: right dorsal foot, looks streptococcal, Clinda X 72h, Cefepime for now. to ancef soon. MRI neg for osteo (4) DM2 (diabetes mellitus, type 2) Status: Chronic Qualifiers: Diabetes mellitus care home insulin use: unspecified care home insulin use status Diabetes mellitus complication status: with neurologic complications Diabetes mellitus complication detail: with polyneuropathy Qualified Code(s): E11.42 - Type 2 diabetes mellitus with diabetic polyneuropathy (5) HTN (hypertension) Code(s): I10 - ESSENTIAL (PRIMARY) HYPERTENSION Status: Chronic Qualifiers: Hypertension type: essential hypertension Qualified Code(s): I10 - Essential (primary) hypertension (6) PVD (peripheral vascular disease) with claudication Code(s): I73.9 - PERIPHERAL VASCULAR DISEASE, UNSPECIFIED Status: Chronic Comment: BLE, 3+ triphasic in deep femoral, biphasic through popliteal, monophasic to BLE, nonpalpable distal pulses. - Plan continue antibiotics, PT/OT, out of bed/ambulate, DVT proph w/SCDs cont IV Abx.appreciate ID,GS & CTS help w care of pt -: angiogram today.sarah walls need toe amputation -: Duration of Abx will depend on evidence of Cx form foot /blood -: HD stable. -: am labs * . Review of Systems - Review of Systems Constitutional: negative: fever, chills, sweats, weakness, malaise, other ENT: negative: Ear Pain, Ear Discharge, Nose Pain, Nose Discharge, Nose Congestion, Mouth Pain, Mouth Swelling, Throat Pain, Throat Swelling, Other Respiratory: negative: Cough, Dry, Shortness of Breath, Hemoptysis, SOB with Excertion, Pleuritic Pain, Sputum, Wheezing Cardiovascular: negative: chest pain, palpitations, orthopnea, paroxysmal nocturnal dyspnea, edema, light headedness, other Gastrointestinal: negative: Nausea, Vomiting, Abdominal Pain, Diarrhea, Constipation, Melena, Hematochezia, Other Genitourinary: negative: Dysuria, Frequency, Incontinence, Hematuria, Retention , Other Musculoskeletal: Foot Pain. negative: Neck Pain, Shoulder Pain, Arm Pain, Back Pain, Hand Pain, Leg Pain, Other Skin: negative: Rash, Lesions, Rick, Bruising, Other Neurological: negative: Weakness, Numbness, Incoordination, Change in Speech, Confusion, Seizures, Other - Medications/Allergies Allergies/Adverse Reactions: Allergies Allergy/AdvReac Type Severity Reaction Status Date / Time No Known Allergies Allergy Unverified 01/18/18 23:55 Medications: Current Medications Acetaminophen (Tylenol) 650 mg PO Q4H PRN PRN Reason: Headache/Fever or Pain Last Admin: 01/20/18 04:26 Dose: 650 mg Hydrocodone Bitart/Acetaminophen ([place] 10/325) 2 tab PO Q4H PRN PRN Reason: Severe Pain (7-10) Last Admin: 01/22/18 17:40 Dose: 2 tab Hydrocodone Bitart/Acetaminophen ([place] 5/325) 2 tab PO Q4H PRN PRN Reason: Moderate Pain (4-6) Last Admin: 01/23/18 11:57 Dose: 2 tab Amlodipine Besylate (Norvasc) 5 mg PO DAILY [facility] Aspirin (Ecotrin) 81 mg PO DAILY [facility] Last Admin: 01/23/18 10:08 Dose: 81 mg Clonidine (Catapres) 0.1 mg PO Q4H PRN PRN Reason: SBP>160 Dextrose/Water (Dextrose 50%) 25 gm SLOW IVP PRN PRN PRN Reason: Hypoglycemia Docusate Sodium (Colace) 100 mg PO BID [facility] Last Admin: 01/23/18 07:53 Dose: Not Given Enoxaparin Sodium (Lovenox) 40 mg SC 0900 [facility] Last Admin: 01/23/18 07:53 Dose: Not Given Glucagon (Glucagon) 1 mg IM PRN PRN PRN Reason: Hypoglycemia Hydralazine HCl (Apresoline) 10 mg SLOW IVP Q3H PRN PRN Reason: SBP > 180 Last Admin: 01/23/18 09:34 Dose: 10 mg Dextrose/Water (D5w) 1,000 mls @ 0 mls/hr IV .Q0M PRN; As Directed PRN Reason: Hypoglycemia Clindamycin Phosphate/Dextrose (900 mg/ Device) 50 mls @ 100 mls/hr IVPB 0800, 1600,2359 [facility] Last Admin: 01/23/18 07:14 Dose: 50 mls Cefepime HCl 2 gm/ Sodium (Chloride) 100 mls @ 200 mls/hr IVPB Q12HR [facility] Last Admin: 01/23/18 08:49 Dose: 100 mls Insulin Human Lispro (Humalog) 0 units SC .MODERATE SLIDING SC PRN PRN Reason: Moderate Correctional Scale Last Admin: 01/22/18 17:41 Dose: 6 unit Insulin Human Lispro (Humalog) 0 units SC .BEDTIME SLIDING SC PRN PRN Reason: Bedtime Correctional Scale Last Admin: 01/20/18 20:08 Dose: 2 unit Insulin Human NPH (Humulin N) 20 unit SC HS [facility] Last Admin: 01/21/18 21:25 Dose: 20 unit Insulin Human NPH (Humulin N) 20 unit SC DAILY [facility] Last Admin: 01/23/18 10:08 Dose: Not Given Lactulose (Lactulose) 20 gm PO DAILYPRN PRN PRN Reason: Constipation Losartan Potassium (Cozaar) 50 mg PO BID [facility] Last Admin: 01/23/18 10:07 Dose: 50 mg Morphine Sulfate (Morphine) 2 mg SLOW IVP Q4H PRN PRN Reason: Severe Pain (7-10) Last Admin: 01/23/18 07:51 Dose: 2 mg Ondansetron HCl (Zofran Odt) 4 mg PO Q6H PRN PRN Reason: Nausea/Vomiting Ondansetron HCl (Zofran) 4 mg IVP Q6H PRN PRN Reason: Nausea/Vomiting Tamsulosin HCl (Flomax) 0.4 mg PO DAILY [facility] Last Admin: 01/23/18 07:53 Dose: Not Given Trazodone HCl (Desyrel) 50 mg PO HSPRN PRN PRN Reason: Insomnia Last Admin: 01/19/18 20:18 Dose: 50 mg
--- NOTE | 2018-01-23 18:35 | PRG ---
DATE OF SERVICE: 01/23/2018 Mr. Lopez had an arteriogram today by Dr. Romo. The patient has severe PAD. He does note he pierce s not have any named vessel below his knee. He has multiple small collaterals. The patient has a ga ngrenous toe and severe PAD. He has rest pain in his foot and hangs his leg outside the bed at night to enable him to sleep. I have discussed with the patient and family. Recommendations for right be [id number] amputation. I told him that any other amputation of the foot will not heal. I suggest that we do this tomorrow. We will ask case preparer and liner and therapy and rehab screening to help dis position post-amputation. He will discuss with the family. We will plan this tomorrow pending famil y discussion.
--- NOTE | 2018-01-23 18:57 | OP ---
DATE OF PROCEDURE: 01/23/2018 PREOPERATIVE DIAGNOSIS: Gangrene of the right foot with peripheral vascular disease. POSTOPERATIVE DIAGNOSIS: Gangrene of the right foot with peripheral vascular disease. PROCEDURES: 1. Ultrasound-guided vascular access of left femoral artery. 2. Abdominal aortogram. 3. Right external iliac artery angiogram with right leg runoff. 4. Right SFA artery angiogram. 5. Right popliteal artery angiogram. TOTAL CONTRAST: 23 mL. TOTAL FLUORO TIME: 6.4 minutes. FINDINGS: Normal aortoiliac, common femoral, superficial femoral, and popliteal arteries down to the level of the knee. At the level of the knee, the popliteal artery was acutely occluded with heavy c ollateralization. Collaterals fill down to the foot, but never fill any named tibial artery. DESCRIPTION OF PROCEDURE: After consent was obtained, the patient was brought to clinical laboratory director, placed in supine position on the clinical laboratory director table. Appropriate monitoring was placed. IV sedation was begun wi th 50 mg of fentanyl, 1 mg of Versed. 1% lidocaine was used to anesthetize the area overlying common femoral artery. Ultrasound guidance was used to guide a micropuncture access needle into the common femoral artery. This was followed by sheath placement. Micropuncture sheath was exchanged over an 0.035 Bentson wire for a 5-Albanian sheath. Contra catheter was passed into the abdominal aorta. Hand injected arteriogram was performed illuminating the aorta and iliac vasculature. There was no signi ficant atherosclerotic occlusion in the aorta, common iliac, internal iliac, or external iliac arteri es. Contra catheter was used to guide the Bentson guidewire over the aortic bifurcation. An angled glide catheter was guided down into the external iliac artery. Hand injected arteriogram was perform ed illuminating the common femoral artery and profunda femoris, which were free of any atheroscleroti c disease. The angled glide catheter was guided over a Glidewire down into the superficial femoral a rtery. Hand injected arteriogram was again performed and the superficial femoral and popliteal arter ies were widely patent. Angled glide catheter was guided down into the popliteal artery and hand inj ected arteriogram performed using digital subtraction angiography illuminating the below knee area. The tibial arteries were all occluded. There was heavy collateralization in the proximal calf, which passed down towards the foot. Tibial arteries never filled. The angled glide catheter was backed o sandy the aortic bifurcation into the aorta. Bentson guidewire was replaced. The catheters and sheath s were removed. ProGlide closure device was then placed and deployed with good hemostasis. The may ent was transferred to the recovery area in stable condition.
[2018-01-24] MEDS ORDERED: Sodium Chloride 0.9% 1,000 ML IV SCH ×2 (08:00→16:16)
[2018-01-24] MEDS: HYDROcodone/Acetaminophen 5/325 mg Tablet PO PRN (08:37)
[2018-01-24] MEDS: Amlodipine 5 MG TAB PO SCH (08:38)
[2018-01-24] MEDS: Clindamycin/D5W 900 MG in Premix Bag 1 BAG IVPB SCH ×2 (08:39→18:12)
[2018-01-24] MEDS: Tamsulosin HCl 0.4 MG CAP PO SCH (08:39)
[2018-01-24] MEDS: Losartan 25 MG TAB PO SCH ×2 (08:39→20:41)
[2018-01-24] MEDS: Docusate 100 MG CAP PO SCH ×2 (08:39→20:41)
[2018-01-24] MEDS: Aspirin 81 mg Enteric Coated Tablet PO SCH (08:41)
[2018-01-24] MEDS: NPH, Human Insulin Isophane 300 UNIT/3 ML VIAL SC SCH ×2 (08:44→20:41)
[2018-01-24] MEDS: Cefepime 2 GM in Sodium Chloride 0.9% 100 ML IVPB SCH (10:12)
[2018-01-24] MEDS ORDERED: Glycopyrrolate 0.2 MG/ML 5 ML SYRINGE ONE (12:31)
[2018-01-24] MEDS ORDERED: PROVENTIL INHALER 6.7 G (200 INHALATIONS) ONE (12:31)
[2018-01-24] MEDS ORDERED: PROPOFOL 200 MG/20 ML VIAL ONE (12:31)
[2018-01-24] MEDS ORDERED: PHENYLEPHRINE-NS 100 MCG/ML 10 ML SYRINGE ONE (12:31)
[2018-01-24] MEDS ORDERED: Metoclopramide HCl 10 MG/2 ML VIAL ONE (12:31)
[2018-01-24] MEDS ORDERED: Lidocaine 1% PF 5 ML VIAL ONE (12:31)
[2018-01-24] MEDS ORDERED: ePHEDrine/0.9% NaCl/PF SYRINGE 50 mg/10 ml ONE (12:31)
[2018-01-24] MEDS ORDERED: Ondansetron HCl/PF 4 MG/2 ML Vial ONE (12:31)
[2018-01-24] MEDS ORDERED: Fentanyl 250 MCG/5 ML VIAL ONE (14:27)
[2018-01-24] MEDS ORDERED: Albuterol Sulfate HFA (OR ONLY) ONE (14:38)
--- NOTE | 2018-01-24 14:44 | PDOC.PN ---
- Subjective Encounter Start Date: 01/24/18 Encounter Start Time: 14:43 Subjective: pain slightly better. no new complaints -: care discussed w Pt & family at bedside.agreeable for leg amputation - Objective Resuscitation Status: Resuscitation Status FULL:Full Resuscitation MAR Reviewed: Yes Vital Signs & Weight: Vital Signs (12 hours) Temp Pulse Resp BP BP BP Pulse Ox 01/24/18 12:29 97.8 F 72 18 155/75 H 94 L 01/24/18 08:38 67 176/74 H 01/24/18 08:26 98.3 F 67 16 176/74 H 94 L 01/24/18 08:00 98.3 F 67 16 94 L 01/24/18 05:28 98.2 F 70 16 153/69 H 96 01/24/18 03:45 97.8 F 71 16 152/57 H 96 Weight Admit Weight 189 lb Weight 189 lb 8 oz I&O: 01/23/18 01/24/18 01/25/18 06:59 06:59 06:59 Intake Total 240 400 Balance 240 400 Result Diagrams: 01/22/18 03:57 01/23/18 03:55 Additional Labs: Accuchecks 01/24/18 01/24/18 01/23/18 11:25 05:07 20:46 POC Glucose 162 H 184 H 304 H 01/23/18 16:33 POC Glucose 139 H Microbiology 01/18/18 23:10 Venous blood - Right Arm Blood Culture - Final No growth. labs reviewed Phys Exam - Physical Examination Constitutional: NAD HEENT: PERRLA, moist MMs, sclera anicteric, oral pharynx no lesions Neck: no nodes, no JVD, supple, full ROM Respiratory: no wheezing, no rales, no rhonchi, clear to auscultation bilateral Cardiovascular: RRR, no significant murmur, no rub Gastrointestinal: soft, non-tender, no distention, positive bowel sounds Musculoskeletal: no edema, pulses present Neurological: non-focal, normal sensation, moves all 4 limbs Psychiatric: normal affect, A&O x 3 Skin: no rash Dx/Plan (1) Ischemic necrosis of toe Code(s): I96 - GANGRENE, NOT ELSEWHERE CLASSIFIED Status: Acute (2) Ischemic ulcer of toe of right foot Code(s): L97.519 - NON-PRS CHRONIC ULCER OTH PRT RIGHT FOOT W UNSP SEVERITY Status: Acute Qualifiers: Non-pressure ulcer stage: with fat layer exposed Qualified Code(s): L97.512 - Non-pressure chronic ulcer of other part of right foot with fat layer exposed Comment: John 2 (3) Cellulitis and abscess of foot, except toes Code(s): L03.119 - CELLULITIS OF UNSPECIFIED PART OF LIMB; L02.619 - CUTANEOUS ABSCESS OF UNSPECIFIED FOOT Status: Acute Comment: right dorsal foot, looks streptococcal, Clinda X 72h, Cefepime for now. to ancef soon. MRI neg for osteo (4) DM2 (diabetes mellitus, type 2) Status: Chronic Qualifiers: Diabetes mellitus penitentiary insulin use: unspecified penitentiary insulin use status Diabetes mellitus complication status: with neurologic complications Diabetes mellitus complication detail: with polyneuropathy Qualified Code(s): E11.42 - Type 2 diabetes mellitus with diabetic polyneuropathy (5) HTN (hypertension) Code(s): I10 - ESSENTIAL (PRIMARY) HYPERTENSION Status: Chronic Qualifiers: Hypertension type: essential hypertension Qualified Code(s): I10 - Essential (primary) hypertension (6) PVD (peripheral vascular disease) with claudication Code(s): I73.9 - PERIPHERAL VASCULAR DISEASE, UNSPECIFIED Status: Chronic Comment: BLE, 3+ triphasic in deep femoral, biphasic through popliteal, monophasic to BLE, nonpalpable distal pulses. - Plan plan discussed w/ family, continue antibiotics, PT/OT, respiratory therapy, incentive spirometry, out of bed/ambulate, DVT proph w/SCDs cont empiric ABx. blood Cx negative so far -: BKA later today.will follow -: am labs -: HD stable * . Review of Systems - Review of Systems Constitutional: negative: fever, chills, sweats, weakness, malaise, other Cardiovascular: negative: chest pain, palpitations, orthopnea, paroxysmal nocturnal dyspnea, edema, light headedness, other Gastrointestinal: negative: Nausea, Vomiting, Abdominal Pain, Diarrhea, Constipation, Melena, Hematochezia, Other Genitourinary: negative: Dysuria, Frequency, Incontinence, Hematuria, Retention , Other Musculoskeletal: Foot Pain. negative: Neck Pain, Shoulder Pain, Arm Pain, Back Pain, Hand Pain, Leg Pain, Other Neurological: negative: Weakness, Numbness, Incoordination, Change in Speech, Confusion, Seizures, Other - Medications/Allergies Allergies/Adverse Reactions: Allergies Allergy/AdvReac Type Severity Reaction Status Date / Time No Known Allergies Allergy Unverified 01/18/18 23:55 Medications: Current Medications Acetaminophen (Tylenol) 650 mg PO Q4H PRN PRN Reason: Headache/Fever or Pain Last Admin: 01/20/18 04:26 Dose: 650 mg Hydrocodone Bitart/Acetaminophen ([place] 10/325) 2 tab PO Q4H PRN PRN Reason: Severe Pain (7-10) Last Admin: 01/22/18 17:40 Dose: 2 tab Hydrocodone Bitart/Acetaminophen ([place] 5/325) 2 tab PO Q4H PRN PRN Reason: Moderate Pain (4-6) Last Admin: 01/24/18 08:37 Dose: 2 tab Amlodipine Besylate (Norvasc) 5 mg PO DAILY [facility] Last Admin: 01/24/18 08:38 Dose: 5 mg Aspirin (Ecotrin) 81 mg PO DAILY [facility] Last Admin: 01/24/18 08:41 Dose: 81 mg Clonidine (Catapres) 0.1 mg PO Q4H PRN PRN Reason: SBP>160 Dextrose/Water (Dextrose 50%) 25 gm SLOW IVP PRN PRN PRN Reason: Hypoglycemia Docusate Sodium (Colace) 100 mg PO BID [facility] Last Admin: 01/24/18 08:39 Dose: 100 mg Glucagon (Glucagon) 1 mg IM PRN PRN PRN Reason: Hypoglycemia Hydralazine HCl (Apresoline) 10 mg SLOW IVP Q3H PRN PRN Reason: SBP > 180 Last Admin: 01/23/18 09:34 Dose: 10 mg Dextrose/Water (D5w) 1,000 mls @ 0 mls/hr IV .Q0M PRN; As Directed PRN Reason: Hypoglycemia Clindamycin Phosphate/Dextrose (900 mg/ Device) 50 mls @ 100 mls/hr IVPB 0800, 1600,2359 [facility] Last Admin: 01/24/18 08:39 Dose: 50 mls Cefepime HCl 2 gm/ Sodium (Chloride) 100 mls @ 200 mls/hr IVPB Q12HR [facility] Last Admin: 01/24/18 10:12 Dose: 100 mls Sodium Chloride (Normal Saline 0.9%) 1,000 mls @ 100 mls/hr IV .Q10H [facility] Last Admin: 01/24/18 08:39 Dose: 1,000 mls Insulin Human Lispro (Humalog) 0 units SC .MODERATE SLIDING SC PRN PRN Reason: Moderate Correctional Scale Last Admin: 01/22/18 17:41 Dose: 6 unit Insulin Human Lispro (Humalog) 0 units SC .BEDTIME SLIDING SC PRN PRN Reason: Bedtime Correctional Scale Last Admin: 01/20/18 20:08 Dose: 2 unit Insulin Human NPH (Humulin N) 20 unit SC HS [facility] Last Admin: 01/23/18 20:35 Dose: 20 unit Insulin Human NPH (Humulin N) 20 unit SC DAILY [facility] Last Admin: 01/24/18 08:44 Dose: Not Given Lactulose (Lactulose) 20 gm PO DAILYPRN PRN PRN Reason: Constipation Losartan Potassium (Cozaar) 50 mg PO BID [facility] Last Admin: 01/24/18 08:39 Dose: 50 mg Morphine Sulfate (Morphine) 2 mg SLOW IVP Q4H PRN PRN Reason: Severe Pain (7-10) Last Admin: 01/24/18 11:35 Dose: 2 mg Ondansetron HCl (Zofran Odt) 4 mg PO Q6H PRN PRN Reason: Nausea/Vomiting Ondansetron HCl (Zofran) 4 mg IVP Q6H PRN PRN Reason: Nausea/Vomiting Tamsulosin HCl (Flomax) 0.4 mg PO DAILY [facility] Last Admin: 01/24/18 08:39 Dose: 0.4 mg Trazodone HCl (Desyrel) 50 mg PO HSPRN PRN PRN Reason: Insomnia Last Admin: 01/19/18 20:18 Dose: 50 mg
[2018-01-24] MEDS ORDERED: Ondansetron HCl/PF 4 MG/2 ML Vial IVP PRN ×2 (16:18→16:40)
[2018-01-24] MEDS ORDERED: Morphine Sulfate 2 MG/ML SYRINGE SLOW IVP PRN (16:18)
[2018-01-24] MEDS ORDERED: Meperidine HCl/PF 25 MG/ML VIAL SLOW IVP PRN (16:18)
[2018-01-24] MEDS ORDERED: HYDROmorphone 2 MG/ML VIAL SLOW IVP PRN (16:18)
[2018-01-24] MEDS ORDERED: Promethazine HCl 25 MG/ML VIAL IM PRN ×2 (16:18→16:40)
[2018-01-24] MEDS ORDERED: Promethazine HCl 25 MG/ML VIAL SLOW IVP PRN (16:18)
[2018-01-24] MEDS ORDERED: diphenhydrAMINE 50 MG/ML VIAL IM PRN (16:40)
[2018-01-24] MEDS ORDERED: Zolpidem Tartrate 5 MG TAB PO PRN (16:40)
[2018-01-24] MEDS ORDERED: diphenhydrAMINE 50 MG/ML VIAL IVP PRN (16:40)
[2018-01-24] MEDS ORDERED: Naloxone HCl 0.4 mg/ml Vial IV PRN (16:40)
[2018-01-24] MEDS ORDERED: diphenhydrAMINE 25 MG CAP PO PRN (16:40)
[2018-01-24] MEDS ORDERED: fentaNYL Citrate/PF 2,000 MCG in Sodium Chloride 0.9% 60 ML IV PRN (16:40)
[2018-01-24] MEDS ORDERED: Communication Order-Pharmacy FS SCH (16:45)
[2018-01-24] MEDS ORDERED: Acetaminophen 1,000 MG in Premix Bag 1 BAG IVPB SCH (16:45)
[2018-01-24] MEDS ORDERED: Ketorolac Tromethamine 30 MG/ML VIAL IVP SCH (18:00)
[2018-01-24] MEDS: Acetaminophen 325 MG TAB PO PRN (20:41)
--- NOTE | 2018-01-24 23:25 | OP ---
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 Arteriography by Dr. Carter Romo revealed no named vessel below the knee. 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 Arteriography by Dr. Carter Romo revealed no named vessel below the knee. PROCEDURE: Right [id number] amputation. SURGEON: Chris Fraga M.D. ANESTHESIA: General . None. ESTIMATED BLOOD LOSS: 200 mL BLOOD TRANSFUSED: None. INDICATIONS: Patient had presented with a gangrenous toe and ulceration of the toe tip. He had nonp alpable pedal pulses. He underwent arteriography with Dr. Carter Romo revealing no named vessel be low the knee. He had only small collaterals. He had rest pain. PROCEDURE IN DETAIL: The patient was taken to the operating room where under general anesthesia, rig ht lower extremity was prepared with Betadine, draped in routine fashion. Incision was made for belo w-the-knee amputation with long posterior flap. The skin and subcutaneous tissue, fascia, muscle lay ers divided with the cautery. Vascular bundles divided between clamps and ligated with 2-0 silk ties . Tibia dissected free. Periosteum raised proximally, divided with a Gigli saw, beveling the anteri or edge cephalad, smoothing it with a rasp. Fibula transected with a bone cutter about 2 inches abov e the cut edge of the tibia. Soft tissue divided. Amputation completed, submitted to pathology. He mostasis gained with cautery and 2-0 Vicryl [id number]. Wound irrigated. Fascia approximated w ith interrupted [id number] suture of 2-0 Vicryl, skin with guadalupe. Sterile dressing applied.
[2018-01-25] MEDS: Acetaminophen 500 MG TAB PO SCH ×2 (00:42→06:04)
[2018-01-25 03:52] LABS: #Eosinphils 0.1 thou/uL (0.0-0.7); #Lymphocytes 1.1 thou/uL (1.20-3.40); #Monocytes 0.7 thou/uL (0.11-0.59); #Neutrophils 8.7 thou/uL (1.40-6.50); %Basophils 0.3 % (0.0-1.0); %Eosinophils 0.9 % (0.0-10.0); %Lymphocytes 10.3 % (21.0-51.0); %Monocytes 6.5 % (0.0-10.0); %Neutrophils 82.1 % (42.0-75.0); Hemoglobin 11.4 g/dL (14.0-18.0); Mean Corpuscular HGB CONC 35.7 g/dL (32.0-36.0); Mean Corpuscular Volume 89.6 fL (78.0-98.0); Mean Platelet Volume 6.6 fL (7.4-10.4); Platelet Count 361 thou/uL (130-400); Red Blood Cell (RBC) Count 3.56 mill/uL (4.70-6.10); White Blood Cell (WBC) Count 10.6 thou/uL (4.8-10.8)
[2018-01-25] MEDS: hydrALAZINE 20 MG/ML VIAL SLOW IVP PRN (03:57)
[2018-01-25] MEDS ORDERED: Famotidine 20 MG TAB PO SCH (05:45)
[2018-01-25] MEDS ORDERED: traMADol HCl 50 MG TAB PO PRN ×3 (06:55→09:44)
[2018-01-25] MEDS ORDERED: Mag-Al 1200 mg/1200 mg/30 ML UDCUP PO PRN (06:56)
[2018-01-25] MEDS ORDERED: Enoxaparin Sodium 40 MG/0.4 ML SYRINGE SC SCH (09:00)
[2018-01-25] MEDS: Pantoprazole 40 MG VIAL IVP SCH ×2 (09:10→21:07)
[2018-01-25] MEDS: Amlodipine 5 MG TAB PO SCH (09:18)
[2018-01-25] MEDS: Docusate 100 MG CAP PO SCH ×2 (09:18→20:39)
[2018-01-25] MEDS: NPH, Human Insulin Isophane 300 UNIT/3 ML VIAL SC SCH ×2 (09:25→21:10)
[2018-01-25] MEDS: Losartan 25 MG TAB PO SCH ×2 (09:25→20:39)
[2018-01-25] MEDS: Polyethylene Glycol 3350 17 GM Packet PO SCH (09:25)
[2018-01-25] MEDS: Tamsulosin HCl 0.4 MG CAP PO SCH (09:26)
[2018-01-25] MEDS ORDERED: Fentanyl 100 MCG/2 ML VIAL SLOW IVP PRN (09:43)
[2018-01-25 12:22] LABS: Hemoglobin 10.9 g/dL (14.0-18.0)
[2018-01-25] MEDS: Acetaminophen 1,000 MG in Premix Bag 1 BAG IVPB SCH ×2 (12:52→17:26)
[2018-01-25] MEDS: HumaLOG 300 UNITS/3 ML VIAL SC PRN ×3 (13:36→20:41)
--- NOTE | 2018-01-25 13:50 | RAD ---
AP VIEW OF THE CHEST: INDICATION: Coarse lung sounds with coughing up rust-tinged sputum. FINDINGS: Cardiomegaly. No definite focal consolidation, pleural effusion, or pneumothorax is evident. No acu te osseous abnormality is evident. IMPRESSION: 1. Cardiomegaly. 2. No definite acute abnormality is demonstrated. If there is continued clinical concern of a hemop tysis, further evaluation with a CT examination may be helpful. POS: JAIMIE
[2018-01-25 14:34] VITALS: BMI 26.5
--- NOTE | 2018-01-25 15:28 | PDOC.PN ---
- Subjective Encounter Start Date: 01/25/18 Encounter Start Time: 15:27 Subjective: had nausea and then vomiting w phlegmn last night -: no Abd pain but disteneded a little.passing gas - Objective Resuscitation Status: Resuscitation Status FULL:Full Resuscitation MAR Reviewed: Yes Vital Signs & Weight: Vital Signs (12 hours) Temp Pulse Resp BP BP BP BP 01/25/18 11:00 98.0 F 82 16 154/70 H 01/25/18 09:51 158/78 H 156/76 H 01/25/18 09:18 91 160/73 H 01/25/18 09:12 156/78 H 154/74 H 01/25/18 09:00 98.4 F 01/25/18 08:00 98.0 F 91 18 160/73 H 01/25/18 03:57 79 185/83 H Pulse Ox 01/25/18 11:00 96 01/25/18 09:51 01/25/18 09:18 01/25/18 09:12 01/25/18 09:00 01/25/18 08:00 95 01/25/18 03:57 Weight Admit Weight 189 lb Weight 185 lb 3.2 oz I&O: 01/24/18 01/25/18 01/26/18 06:59 06:59 06:59 Intake Total 400 230 Output Total 50 Balance 400 180 Result Diagrams: 01/25/18 12:14 01/23/18 03:55 Additional Labs: Accuchecks 01/25/18 01/25/18 01/24/18 11:08 04:56 20:41 POC Glucose 291 H 199 H 157 H 01/24/18 18:58 POC Glucose 165 H Laboratory Tests 01/20/18 01/21/18 01/22/18 04:13 03:53 03:57 Hgb 12.3 L 11.5 L 11.2 L 01/25/18 01/25/18 03:30 12:14 Hgb 11.4 L 10.9 L labs reviewed Microbiology 01/18/18 23:30 Venous blood - Left Arm Blood Culture - Final No growth. 01/18/18 23:10 Venous blood - Right Arm Blood Culture - Final No growth. 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 to ancef soon. MRI neg for osteo (4) DM2 (diabetes mellitus, type 2) Status: Chronic Qualifiers: Diabetes mellitus chcf insulin use: unspecified manager intermediate insulin use status Diabetes mellitus complication status: with neurologic complications Diabetes mellitus complication detail: with polyneuropathy Qualified Code(s): E11.42 - Type 2 diabetes mellitus with diabetic polyneuropathy (5) HTN (hypertension) Code(s): I10 - ESSENTIAL (PRIMARY) HYPERTENSION Status: Chronic Qualifiers: Hypertension type: essential hypertension Qualified Code(s): I10 - Essential (primary) hypertension (6) PVD (peripheral vascular disease) with claudication Code(s): I73.9 - PERIPHERAL VASCULAR DISEASE, UNSPECIFIED Status: Chronic Comment: BLE, 3+ triphasic in deep femoral, biphasic through popliteal, monophasic to BLE, nonpalpable distal pulses. - Plan plan discussed w/ family, continue antibiotics, PT/OT, respiratory therapy, incentive spirometry, out of bed/ambulate, DVT proph w/SCDs DC IVF.CXR checked & negative for PNA,edema -: prn anti-emetics. assurance provided.on PPI -: AB xstopped per GS. ID following -: HD stable. AM labs -: Rehab eval in progress * . Review of Systems - Review of Systems Constitutional: weakness, malaise. negative: fever, chills, sweats, other ENT: negative: Ear Pain, Ear Discharge, Nose Pain, Nose Discharge, Nose Congestion, Mouth Pain, Mouth Swelling, Throat Pain, Throat Swelling, Other Respiratory: negative: Cough, Dry, Shortness of Breath, Hemoptysis, SOB with Excertion, Pleuritic Pain, Sputum, Wheezing Cardiovascular: negative: chest pain, palpitations, orthopnea, paroxysmal nocturnal dyspnea, edema, light headedness, other Gastrointestinal: Nausea, Vomiting Genitourinary: negative: Dysuria, Frequency, Incontinence, Hematuria, Retention , Other Musculoskeletal: Leg Pain. negative: Neck Pain, Shoulder Pain, Arm Pain, Back Pain, Hand Pain, Other Skin: negative: Rash, Lesions, Rick, Bruising, Other Neurological: negative: Weakness, Numbness, Incoordination, Change in Speech, Confusion, Seizures, Other - Medications/Allergies Allergies/Adverse Reactions: Allergies Allergy/AdvReac Type Severity Reaction Status Date / Time No Known Allergies Allergy Unverified 01/18/18 23:55 Medications: Current Medications Acetaminophen (Tylenol) 650 mg PO Q4H PRN PRN Reason: Headache/Fever or Pain Last Admin: 01/24/18 20:41 Dose: 650 mg Al Hydroxide/Mg Hydroxide (Maalox) 30 ml PO QIDPRN PRN PRN Reason: Heartburn or Indigestion Amlodipine Besylate (Norvasc) 5 mg PO DAILY [facility] Last Admin: 01/25/18 09:18 Dose: Not Given Clonidine (Catapres) 0.1 mg PO Q4H PRN PRN Reason: SBP>160 Dextrose/Water (Dextrose 50%) 25 gm SLOW IVP PRN PRN PRN Reason: Hypoglycemia Diphenhydramine HCl (Benadryl) 25 mg IVP Q3H PRN PRN Reason: Itching Diphenhydramine HCl (Benadryl) 25 mg PO Q3H PRN PRN Reason: Itching Diphenhydramine HCl (Benadryl) 25 mg IM Q3H PRN PRN Reason: Itching Docusate Sodium (Colace) 100 mg PO BID [facility] Last Admin: 01/25/18 09:18 Dose: Not Given Famotidine (Pepcid) 20 mg PO DAILY [facility] Fentanyl (Sublimaze) 50 mcg SLOW IVP Q1H PRN PRN Reason: BREAKTHROUGH PAIN Last Admin: 01/25/18 11:50 Dose: 50 mcg Glucagon (Glucagon) 1 mg IM PRN PRN PRN Reason: Hypoglycemia Hydralazine HCl (Apresoline) 10 mg SLOW IVP Q3H PRN PRN Reason: SBP > 180 Last Admin: 01/25/18 03:57 Dose: 10 mg Dextrose/Water (D5w) 1,000 mls @ 0 mls/hr IV .Q0M PRN; As Directed PRN Reason: Hypoglycemia Acetaminophen 1,000 mg/ Device 100 mls @ 400 mls/hr IVPB Q6HR [facility] Stop: 01/26/18 12:01 Last Admin: 01/25/18 12:52 Dose: 100 mls Insulin Human Lispro (Humalog) 0 units SC .MODERATE SLIDING SC PRN PRN Reason: Moderate Correctional Scale Last Admin: 01/25/18 13:36 Dose: 6 unit Insulin Human Lispro (Humalog) 0 units SC .BEDTIME SLIDING SC PRN PRN Reason: Bedtime Correctional Scale Last Admin: 01/20/18 20:08 Dose: 2 unit Insulin Human NPH (Humulin N) 20 unit SC [facility] Last Admin: 01/24/18 20:41 Dose: Not Given Insulin Human NPH (Humulin N) 20 unit SC DAILY [facility] Last Admin: 01/25/18 09:25 Dose: Not Given Lactulose (Lactulose) 20 gm PO DAILYPRN PRN PRN Reason: Constipation Losartan Potassium (Cozaar) 50 mg PO BID [facility] Last Admin: 01/25/18 09:25 Dose: Not Given Naloxone HCl (Narcan) 0.2 mg IV Q5MIN PRN PRN Reason: Opiate Reversal Ondansetron HCl (Zofran Odt) 4 mg PO Q6H PRN PRN Reason: Nausea/Vomiting Ondansetron HCl (Zofran) 4 mg IVP Q6H PRN PRN Reason: Nausea/Vomiting Pantoprazole Sodium (Protonix) 40 mg IVP Q12HR [facility] Last Admin: 01/25/18 09:10 Dose: 40 mg Polyethylene Glycol (Miralax) 17 gm PO DAILY [facility] Last Admin: 01/25/18 09:25 Dose: Not Given Promethazine HCl (Phenergan) 12.5 mg IM Q4H PRN PRN Reason: Nausea/Vomiting Sodium Chloride (Flush - Normal Saline) 10 ml IVF Q12HR [facility] Last Admin: 01/25/18 09:10 Dose: 10 ml Sodium Chloride (Flush - Normal Saline) 10 ml IVF PRN PRN PRN Reason: Saline Flush Tamsulosin HCl (Flomax) 0.4 mg PO DAILY [facility] Last Admin: 01/25/18 09:26 Dose: Not Given Tramadol HCl (Ultram) 50 mg PO Q6H PRN PRN Reason: Pain 2-5 Tramadol HCl (Ultram) 100 mg PO Q6H PRN PRN Reason: PAIN 6-10 Trazodone HCl (Desyrel) 50 mg PO HSPRN PRN PRN Reason: Insomnia Last Admin: 01/19/18 20:18 Dose: 50 mg Zolpidem Tartrate (Ambien) 5 mg PO HSPRN PRN PRN Reason: Insomnia
[2018-01-25 18:30] LABS: Hemoglobin 10.4 g/dL (14.0-18.0)
[2018-01-25] MEDS: Ondansetron ODT 4 MG TAB PO PRN (20:39)
[2018-01-25] MEDS: cloNIDine 0.1 MG TAB PO PRN (20:39)
--- NOTE | 2018-01-25 21:09 | RAD ---
AP ABDOMINAL RADIOGRAPH 01/25/18 HISTORY: Nausea, vomiting, abdominal pain. FINDINGS: There is severe gaseous distention of the stomach. No distended gas filled loops of small bowel are a ppreciated on this exam. Gas is seen scattered within the colon including the rectum. No suspicious c alcifications are seen. Degenerative changes are seen in the spine. Vascular calcifications seen in t he femoral arteries. IMPRESSION: Severe gaseous distention of the stomach. POS: JOSE
[2018-01-26] MEDS: Acetaminophen 1,000 MG in Premix Bag 1 BAG IVPB SCH ×3 (00:25→12:48)
[2018-01-26 04:09] LABS: #Eosinphils 0.1 thou/uL (0.0-0.7); #Monocytes 0.7 thou/uL (0.11-0.59); #Neutrophils 6.8 thou/uL (1.40-6.50); %Basophils 0.3 % (0.0-1.0); %Eosinophils 1.7 % (0.0-10.0); %Lymphocytes 11.3 % (21.0-51.0); %Monocytes 7.7 % (0.0-10.0); %Neutrophils 78.9 % (42.0-75.0); Hemoglobin 10.4 g/dL (14.0-18.0); Mean Corpuscular Hemoglobin 30.5 pg (27.0-31.0); Mean Corpuscular Volume 92.5 fL (78.0-98.0); Mean Platelet Volume 7.4 fL (7.4-10.4); Platelet Count 328 thou/uL (130-400); RBC Distribution Width 12.2 % (11.5-14.5); Red Blood Cell (RBC) Count 3.41 mill/uL (4.70-6.10); White Blood Cell (WBC) Count 8.6 thou/uL (4.8-10.8)
[2018-01-26 04:31] LABS: ALT (SGPT) 22 U/L (8-55); AST (SGOT) 27 U/L (5-34); Albumin 3.6 g/dL (3.4-4.8); Alkaline Phosphatase 118 U/L (40-150); Anion Gap 12 mmol/L (10-20); BUN (Urea Nitrogen) 26 mg/dL (8.4-25.7); Bilirubin, Total 0.4 mg/dL (0.2-1.2); Calc. Creatinine Clearance 54 mL/min (70-130); Carbon Dioxide 24 mmol/L (23-31); Chloride 104 mmol/L (98-107); Estimated GFR-MDRD 57; Globulin 3.2 g/dL (2.4-3.5); Glucose 253 mg/dL (83-110); Magnesium 2.5 mg/dL (1.6-2.6); Phosphorus 2.5 mg/dL (2.3-4.7); Protein, Total 6.8 g/dL (5.8-8.1); Sodium 136 mmol/L (136-145)
[2018-01-26] MEDS: HumaLOG 300 UNITS/3 ML VIAL SC PRN ×3 (05:18→20:37)
[2018-01-26] MEDS ORDERED: Amlodipine 5 MG TAB PO SCH (08:23)
[2018-01-26] MEDS: Amlodipine 10 MG TAB PO SCH (09:48)
[2018-01-26] MEDS: Famotidine 20 MG TAB PO SCH (09:49)
[2018-01-26] MEDS: Losartan 25 MG TAB PO SCH ×2 (09:49→20:35)
[2018-01-26] MEDS: Tamsulosin HCl 0.4 MG CAP PO SCH (09:49)
[2018-01-26] MEDS: Docusate 100 MG CAP PO SCH ×2 (09:50→20:35)
[2018-01-26] MEDS: Pantoprazole 40 MG VIAL IVP SCH ×2 (09:51→20:36)
[2018-01-26] MEDS: Polyethylene Glycol 3350 17 GM Packet PO SCH (09:51)
[2018-01-26] MEDS: NPH, Human Insulin Isophane 300 UNIT/3 ML VIAL SC SCH ×2 (09:52→20:36)
--- NOTE | 2018-01-26 13:49 | PDOC.PN ---
- Subjective Encounter Start Date: 01/26/18 Encounter Start Time: 13:47 Subjective: family reports that he is eating very little & scared that he would vomit -: no vomiting since once last morning.no diarrhea -: no BM for 3 days and belly distended but no pain - Objective Resuscitation Status: Resuscitation Status FULL:Full Resuscitation MAR Reviewed: Yes Vital Signs & Weight: Vital Signs (12 hours) Temp Pulse Resp BP BP Pulse Ox 01/26/18 11:23 98.3 F 76 16 159/66 H 93 L 01/26/18 09:48 67 167/79 H 01/26/18 08:16 98.3 F 64 20 167/79 H 93 L Weight Admit Weight 189 lb Weight 185 lb 3.2 oz I&O: 01/25/18 01/26/18 01/27/18 06:59 06:59 06:59 Intake Total 230 823 Output Total 50 400 Balance 180 423 Result Diagrams: 01/26/18 03:53 01/26/18 03:53 Additional Labs: Accuchecks 01/26/18 01/25/18 01/25/18 04:53 20:39 16:07 POC Glucose 239 H 243 H 239 H 01/25/18 11:08 POC Glucose 291 H labs reviewed Microbiology 01/18/18 23:30 Venous blood - Left Arm Blood Culture - Final No growth. 01/18/18 23:10 Venous blood - Right Arm Blood Culture - Final No growth. 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 to ancef soon. MRI neg for osteo (4) DM2 (diabetes mellitus, type 2) Status: Chronic Qualifiers: Diabetes mellitus residential insulin use: unspecified residential insulin use status Diabetes mellitus complication status: with neurologic complications Diabetes mellitus complication detail: with polyneuropathy Qualified Code(s): E11.42 - Type 2 diabetes mellitus with diabetic polyneuropathy (5) HTN (hypertension) Code(s): I10 - ESSENTIAL (PRIMARY) HYPERTENSION Status: Chronic Qualifiers: Hypertension type: essential hypertension Qualified Code(s): I10 - Essential (primary) hypertension (6) PVD (peripheral vascular disease) with claudication Code(s): I73.9 - PERIPHERAL VASCULAR DISEASE, UNSPECIFIED Status: Chronic Comment: BLE, 3+ triphasic in deep femoral, biphasic through popliteal, monophasic to BLE, nonpalpable distal pulses. - Plan PT/OT, out of bed/ambulate, DVT proph w/SCDs encourage PO intake.add glucerna. -: rehab eval,if not accpeted,then home w HH -: Hd stable. -: add stool softner. -: am labs * . Review of Systems - Review of Systems Constitutional: weakness, malaise. negative: fever, chills, sweats, other ENT: negative: Ear Pain, Ear Discharge, Nose Pain, Nose Discharge, Nose Congestion, Mouth Pain, Mouth Swelling, Throat Pain, Throat Swelling, Other Respiratory: negative: Cough, Dry, Shortness of Breath, Hemoptysis, SOB with Excertion, Pleuritic Pain, Sputum, Wheezing Cardiovascular: negative: chest pain, palpitations, orthopnea, paroxysmal nocturnal dyspnea, edema, light headedness, other Gastrointestinal: Nausea. negative: Vomiting, Abdominal Pain, Diarrhea, Constipation, Melena, Hematochezia, Other Genitourinary: negative: Dysuria, Frequency, Incontinence, Hematuria, Retention , Other Musculoskeletal: Leg Pain. negative: Neck Pain, Shoulder Pain, Arm Pain, Back Pain, Hand Pain, Foot Pain, Other Skin: negative: Rash, Lesions, Rick, Bruising, Other Neurological: negative: Weakness, Numbness, Incoordination, Change in Speech, Confusion, Seizures, Other - Medications/Allergies Allergies/Adverse Reactions: Allergies Allergy/AdvReac Type Severity Reaction Status Date / Time No Known Allergies Allergy Unverified 01/18/18 23:55 Medications: Current Medications Acetaminophen (Tylenol) 650 mg PO Q4H PRN PRN Reason: Headache/Fever or Pain Last Admin: 01/24/18 20:41 Dose: 650 mg Al Hydroxide/Mg Hydroxide (Maalox) 30 ml PO QIDPRN PRN PRN Reason: Heartburn or Indigestion Last Admin: 01/25/18 19:10 Dose: 30 ml Amlodipine Besylate (Norvasc) 10 mg PO DAILY [facility] Last Admin: 01/26/18 09:48 Dose: 10 mg Clonidine (Catapres) 0.1 mg PO Q4H PRN PRN Reason: SBP>160 Last Admin: 01/25/18 20:39 Dose: 0.1 mg Dextrose/Water (Dextrose 50%) 25 gm SLOW IVP PRN PRN PRN Reason: Hypoglycemia Diphenhydramine HCl (Benadryl) 25 mg IVP Q3H PRN PRN Reason: Itching Diphenhydramine HCl (Benadryl) 25 mg PO Q3H PRN PRN Reason: Itching Diphenhydramine HCl (Benadryl) 25 mg IM Q3H PRN PRN Reason: Itching Docusate Sodium (Colace) 100 mg PO BID [facility] Last Admin: 01/26/18 09:50 Dose: 100 mg Famotidine (Pepcid) 20 mg PO DAILY [facility] Last Admin: 01/26/18 09:49 Dose: 20 mg Fentanyl (Sublimaze) 50 mcg SLOW IVP Q1H PRN PRN Reason: BREAKTHROUGH PAIN Last Admin: 01/25/18 11:50 Dose: 50 mcg Glucagon (Glucagon) 1 mg IM PRN PRN PRN Reason: Hypoglycemia Hydralazine HCl (Apresoline) 10 mg SLOW IVP Q3H PRN PRN Reason: SBP > 180 Last Admin: 01/25/18 03:57 Dose: 10 mg Dextrose/Water (D5w) 1,000 mls @ 0 mls/hr IV .Q0M PRN; As Directed PRN Reason: Hypoglycemia Insulin Human Lispro (Humalog) 0 units SC .MODERATE SLIDING SC PRN PRN Reason: Moderate Correctional Scale Last Admin: 01/26/18 05:18 Dose: 4 unit Insulin Human Lispro (Humalog) 0 units SC .BEDTIME SLIDING SC PRN PRN Reason: Bedtime Correctional Scale Last Admin: 01/25/18 20:41 Dose: 2 unit Insulin Human NPH (Humulin N) 20 unit SC HS [facility] Last Admin: 01/25/18 21:10 Dose: Not Given Insulin Human NPH (Humulin N) 20 unit SC DAILY [facility] Last Admin: 01/26/18 09:52 Dose: Not Given Lactulose (Lactulose) 20 gm PO DAILYPRN PRN PRN Reason: Constipation Losartan Potassium (Cozaar) 50 mg PO BID [facility] Last Admin: 01/26/18 09:49 Dose: 50 mg Naloxone HCl (Narcan) 0.2 mg IV Q5MIN PRN PRN Reason: Opiate Reversal Ondansetron HCl (Zofran Odt) 4 mg PO Q6H PRN PRN Reason: Nausea/Vomiting Last Admin: 01/25/18 20:39 Dose: 4 mg Ondansetron HCl (Zofran) 4 mg IVP Q6H PRN PRN Reason: Nausea/Vomiting Pantoprazole Sodium (Protonix) 40 mg IVP Q12HR [facility] Last Admin: 01/26/18 09:51 Dose: 40 mg Polyethylene Glycol (Miralax) 17 gm PO DAILY [facility] Last Admin: 01/26/18 09:51 Dose: 17 gm Promethazine HCl (Phenergan) 12.5 mg IM Q4H PRN PRN Reason: Nausea/Vomiting Sodium Chloride (Flush - Normal Saline) 10 ml IVF Q12HR [facility] Last Admin: 01/26/18 09:51 Dose: Not Given Sodium Chloride (Flush - Normal Saline) 10 ml IVF PRN PRN PRN Reason: Saline Flush Tamsulosin HCl (Flomax) 0.4 mg PO DAILY [facility] Last Admin: 01/26/18 09:49 Dose: 0.4 mg Tramadol HCl (Ultram) 50 mg PO Q6H PRN PRN Reason: Pain 2-5 Tramadol HCl (Ultram) 100 mg PO Q6H PRN PRN Reason: PAIN 6-10 Trazodone HCl (Desyrel) 50 mg PO HSPRN PRN PRN Reason: Insomnia Last Admin: 01/19/18 20:18 Dose: 50 mg Zolpidem Tartrate (Ambien) 5 mg PO HSPRN PRN PRN Reason: Insomnia
[2018-01-26] MEDS ORDERED: Senokot S 8.6-50 MG TAB PO PRN (13:51)
[2018-01-26] MEDS ORDERED: Bisacodyl 5 MG TAB PO PRN (13:51)
--- NOTE | 2018-01-26 15:08 | RAD ---
TWO VIEWS OF THE ABDOMEN: INDICATION: Systemic stomach and nausea. FINDINGS: There is a mildly gas-filled stomach seen within the upper abdomen. The bowel gas pattern is otherwi se nonspecific. There is a mild amount of retained stool within the colon. There is scattered degen erative change. IMPRESSION: 1. No definite acute abnormality. 2. A mild amount of retained stool within the colon. POS: [facility]
[2018-01-26] MEDS: Metoclopramide HCl 10 MG/2 ML VIAL IVP SCH ×2 (15:38→20:37)
--- NOTE | 2018-01-26 19:17 | PDOC.GSPN ---
Surgery Progress Note: Subj - Subjective Narrative: Patient was having nausea yesterday but this is better today. He did have pretty significant gastric distention on his abdominal film. I started some Reglan for this. His stump is clean and the stump sugar has been ordered. The incision looks good and there is no evidence of infection or hematoma. He is awaiting placement. If his nausea recurs, he may require a period of decompression with an NG tube but hopefully the Reglan will help the stomach to function better. He likely has an element of gastroparesis. Dr. Christian is available over the weekend if any surgical issues arise. If he is still in the hospital on Monday I will see him then. Surgery Progress Note: Obj - Vital signs Vital signs: Vital Signs - Most Recent Temp Pulse Resp BP Pulse Ox 99.6 F 74 16 139/65 94 L 01/26/18 16:46 01/26/18 16:46 01/26/18 16:46 01/26/18 16:46 01/26/18 16:46 Surgery Progress Note: Results - Labs Result Diagrams: 01/26/18 03:53 01/26/18 03:53 Lab results: Laboratory Results - last 24 hr 01/26/18 01/26/18 11:25 16:45 POC Glucose 269 H 298 H
[2018-01-26] MEDS: traMADol HCl 50 MG TAB PO PRN (22:36)
[2018-01-27 04:57] LABS: Hemoglobin 10.2 g/dL (14.0-18.0)
[2018-01-27 05:27] LABS: Anion Gap 13 mmol/L (10-20); BUN (Urea Nitrogen) 20 mg/dL (8.4-25.7); Calc. Creatinine Clearance 66 mL/min (70-130); Calcium 8.9 mg/dL (7.8-10.44); Carbon Dioxide 25 mmol/L (23-31); Chloride 103 mmol/L (98-107); Estimated GFR-MDRD 72; Glucose 186 mg/dL (83-110); Sodium 137 mmol/L (136-145)
[2018-01-27] MEDS: Metoclopramide HCl 10 MG/2 ML VIAL IVP SCH ×3 (05:36→21:42)
[2018-01-27] MEDS: HumaLOG 300 UNITS/3 ML VIAL SC PRN ×4 (05:37→21:43)
[2018-01-27] MEDS: Amlodipine 10 MG TAB PO SCH (08:06)
[2018-01-27] MEDS: Docusate 100 MG CAP PO SCH ×2 (08:07→21:40)
[2018-01-27] MEDS: Famotidine 20 MG TAB PO SCH (08:07)
[2018-01-27] MEDS: Tamsulosin HCl 0.4 MG CAP PO SCH (08:08)
[2018-01-27] MEDS: Pantoprazole 40 MG VIAL IVP SCH ×2 (08:08→21:41)
[2018-01-27] MEDS: Ondansetron ODT 4 MG TAB PO PRN (08:08)
[2018-01-27] MEDS: NPH, Human Insulin Isophane 300 UNIT/3 ML VIAL SC SCH ×2 (08:08→21:41)
[2018-01-27] MEDS: Polyethylene Glycol 3350 17 GM Packet PO SCH (08:08)
[2018-01-27] MEDS: Losartan 25 MG TAB PO SCH ×2 (08:08→21:41)
[2018-01-27] MEDS: traMADol HCl 50 MG TAB PO PRN ×2 (14:36→21:42)
[2018-01-27] MEDS ORDERED: Hydrochlorothiazide 25 MG TAB PO SCH (18:00)
--- NOTE | 2018-01-27 20:44 | PRG ---
DATE OF SERVICE: 01/27/2018 SUBJECTIVE: The patient was seen and examined at the bedside. He is complaining about the pain in h is stump. OBJECTIVE: VITAL SIGNS: Blood pressure is 176/74, pulse is 79, respiratory rate is 16, and O2 saturation is 94% on room air. HEENT: His head is atraumatic, normocephalic. Eyes are PERRLA. Conjunctivae pinkish. Oral mucosa moist. NECK: Supple. LUNGS: Clear. HEART: S1 and S2 normal. ABDOMEN: Soft, nontender. Bowel sounds are present. No organomegaly. His stump looks good. LABORATORY DATA: Hemoglobin of 10.2, hematocrit 29.5. Glycemia is ranging from 225-298. IMPRESSION: 1. Gangrene of right foot toe and ischemic ulcers status post below knee amputation on 01/24/2018. 2. Diabetes mellitus type 2, not controlled. 3. Hypertension. 4. Peripheral vascular disease. PLAN: Our is to intensify his diabetic control. Continue PT and OT and we will continue his p.r.n. morphine.
[2018-01-28] MEDS: Metoclopramide HCl 10 MG/2 ML VIAL IVP SCH ×3 (05:46→20:49)
[2018-01-28] MEDS: HumaLOG 300 UNITS/3 ML VIAL SC PRN ×4 (05:48→20:51)
[2018-01-28] MEDS: Polyethylene Glycol 3350 17 GM Packet PO SCH (07:53)
[2018-01-28] MEDS: Amlodipine 10 MG TAB PO SCH (07:53)
[2018-01-28] MEDS: Docusate 100 MG CAP PO SCH ×2 (07:54→20:46)
[2018-01-28] MEDS: Tamsulosin HCl 0.4 MG CAP PO SCH (07:54)
[2018-01-28] MEDS: Losartan 25 MG TAB PO SCH ×2 (07:54→20:48)
[2018-01-28] MEDS: Pantoprazole 40 MG VIAL IVP SCH ×2 (07:54→20:49)
[2018-01-28] MEDS: Hydrochlorothiazide 25 MG TAB PO SCH (07:54)
[2018-01-28] MEDS: Famotidine 20 MG TAB PO SCH (07:54)
[2018-01-28] MEDS ORDERED: Triple Antibiotic Oint 1 GM Packet TOP SCH (09:00)
[2018-01-28] MEDS: NPH, Human Insulin Isophane 300 UNIT/3 ML VIAL SC SCH ×2 (10:49→20:49)
--- NOTE | 2018-01-28 12:42 | PRG ---
DATE OF SERVICE: 01/28/2018 SUBJECTIVE: The patient is seen and examined at the bedside. He is doing better. The pain level is significantly decreased in his right stump. His appetite is not that good, and he had bowel movemen t yesterday. OBJECTIVE: VITAL SIGNS: Blood pressure is 143/93, pulse is 82, temperature is 97.6, respiratory rate is 16, O2 saturation is 93% on room air. HEENT: Atraumatic, normocephalic. Eyes are PERRLA. Sclerae nonicteric. Oral mucosa is moist. NECK: Supple. LUNGS: Clear. HEART: S1 and S2, normal, no S3 and no S4. ABDOMEN: Soft, nontender, somewhat distended, obese. No guarding, no masses. EXTREMITIES: Status post right BKA. NEUROLOGICAL EXAMINATION: Intact. LABORATORY DATA: Glycemia is ranging from 225-240. IMPRESSION: 1. Gangrene of right foot and ischemic ulcer, status post ayiev-lcm-utrn amputation on 01/24/2018. 2. Diabetes mellitus, type 2, still not controlled. 3. Hypertension, improved. 4. Peripheral vascular disease. PLAN: Still he is on long-acting insulin 40 units twice a day, changed yesterday, some improvement i s seen on this morning glycemia, which is down to 214, but it is not enough. We will continue an eff ort to lower his glucose below 200 before he is discharged from the hospital, which is crucial to hea l properly the wound. We will continue PT and OT and we will use p.r.n. pain medications.
[2018-01-28] MEDS: traMADol HCl 50 MG TAB PO PRN ×2 (13:31→20:49)
[2018-01-29] MEDS: HumaLOG 300 UNITS/3 ML VIAL SC PRN ×3 (05:46→17:16)
[2018-01-29] MEDS: Metoclopramide HCl 10 MG/2 ML VIAL IVP SCH ×2 (05:46→13:41)
[2018-01-29] MEDS: Docusate 100 MG CAP PO SCH (07:53)
[2018-01-29] MEDS: Tamsulosin HCl 0.4 MG CAP PO SCH (07:53)
[2018-01-29] MEDS: Losartan 25 MG TAB PO SCH (07:53)
[2018-01-29] MEDS: Famotidine 20 MG TAB PO SCH (07:53)
[2018-01-29] MEDS: Hydrochlorothiazide 25 MG TAB PO SCH (07:53)
[2018-01-29] MEDS: Polyethylene Glycol 3350 17 GM Packet PO SCH (07:53)
[2018-01-29] MEDS: Amlodipine 10 MG TAB PO SCH (07:53)
[2018-01-29] MEDS: Pantoprazole 40 MG VIAL IVP SCH (07:54)
[2018-01-29] MEDS: NPH, Human Insulin Isophane 300 UNIT/3 ML VIAL SC SCH (07:54)
[2018-01-29 11:28] VITALS: TEMP 97.8
--- NOTE | 2018-01-29 15:49 | DIS ---
DATE OF ADMISSION: 01/19/2018 DATE OF DISCHARGE: 01/29/2018 PRIMARY CARE PROVIDER: Jeancarlos Paris M.D. DISCHARGE DISPOSITION: Discharged home. FINAL DIAGNOSES: Ischemic necrosis of toe; cellulitis and abscess of right leg; diabetes mellitus, t ype 2; with chronic kidney disease, stage 3; hypertension; peripheral vascular disease; status post r ight below-knee amputation. DISCHARGE MEDICATIONS: NPH insulin 20 units at bedtime and 40 units in the morning, Humulin R 10 uni ts twice a day, Flomax 0.4 mg a day, Cozaar 50 mg twice a day, aspirin 81 mg a day, tramadol 50 mg p. o. q.6 hours p.r.n., metformin 850 mg p.o. b.i.d., hydrochlorothiazide 12.5 mg a day, amlodipine 10 m g a day. ALLERGIES: No known drug allergies. PENDING AT THE TIME OF DISCHARGE: Nothing. CODE STATUS: FULL. DIET: Diabetic. HOSPITAL COURSE: The patient admitted to [facility] with pain and discoloration of hi s right foot. He had complicating diabetes and hypertension. White count is 10.8, hemoglobin 12.7, hematocrit 36, platelet count 315. Sodium 136, potassium 4.6, chloride 99, CO2 of 25, BUN 25, creati nine 1.5. Patient had an arteriogram of his right leg that revealed an absence of flow; a lower extr emity MRI, which revealed no evidence of osteomyelitis. He had [facility] lower [facility], revealed severe atherosclerosis. The patient was seen in consultation by Dr. Chris Romo, 01/23/2018. Ultrasound-guided vascular access of left femoral artery, abdominal aortogram, etc. Findings: Normal aortoiliac, common femoral, superficial femoral, and popliteal ar teries down to the level of the knee. These were clearly acutely occluded at that time. The patient subsequently had a right rvlmo-wal-hdol amputation. He has been followed by Wound Care and has been progressing well. Blood cultures were negative. The patient's followup comp metabolic profile reve aled a creatinine of 0.99, BUN of 90. Electrolytes normal. Blood sugars subsequently were in the 15 4-235 range. On 01/26/2018, he had a white cell count of 8.6, hemoglobin 10.4, platelet count of 328 ,000. Patient was initially treated with Zosyn and vancomycin. Antibiotics were discontinued post-a mputation. CONSULTATIONS: Dr. Chris Fraga, General Surgery; Dr. Jose Barron, Infectious Disease; Dr. Glo Romo, Vascular Surgery. Procedures have already been documented in the medical record. Discharge medicines for hypertension and diabetes were adjusted during his hospital stay. New prescriptions have been written for those m edications. Patient has been asked to follow up with Dr. Fraga post surgery, to follow up with his primary care provider in 1 week. Thirty-five minutes spent preparing this discharge.
[2018-01-29] MEDS: cloNIDine 0.1 MG TAB PO PRN (16:45)
[2018-01-29 17:23] VITALS: BP 156/70
--- NOTE | 2018-01-31 08:58 | PQF ---
MONISHA FELIPE RICHARD D MD [id number] CLINICAL DOCUMENTATION CLARIFICATION FORM: POST DISCHARGE DATE: 01/31/2018 ATTN: Dr. Fraga Please exercise your independent, professional judgment in responding to the clarification form. Clinical indicators are provided on the bottom of this form for your review Please check appropriate box(s): Please specify level of below knee amputation as: [ ] High [ ] Mid [ ] Low In addition, please specify: Present on Admission (POA): [ ] Yes [ ] No [ ] Unable to determine For continuity of documentation, please document condition throughout progress notes and discharge summary. Thank You. CLINICAL INDICATORS - SIGNS / SYMPTOMS / LABS Per operative report: Right below the knee amputation. RISK FACTORS Per operative report: Arteriosclerotic vascular disease secondary to diabetes, PAD with rest pain and gangrene. TREATMENTS: Per operative report: Right below the knee amputation. (This form is maintained as a part of the permanent medical record) 2014 [employer]. All Rights Reserved Maude [email or web address] [phone] MTDD
== END 2018-01-29 17:36 | disposition home or self-care (01) | DRG 240 ==
LOC: ERS 18:49 → T4-B 01-19 00:13
PROVIDERS: ADMIT Internal Medicine; ATTEND Internal Medicine
PROC: B4101ZZ Fluoroscopy of Abdominal Aorta using Low Osmolar Contrast (ICD-10-PCS; 2018-01-23)
PROC: B41F1ZZ Fluoroscopy of Right Lower Extremity Arteries using Low Osmolar Contrast (ICD-10-PCS; 2018-01-23)
PROC: 0Y6H0Z3 Detachment at Right Lower Leg, Low, Open Approach (ICD-10-PCS; principal; 2018-01-24)
DX: E11.52 Type 2 diabetes mellitus with diabetic peripheral angiopathy with gangrene (principal); I96 Gangrene, not elsewhere classified; L03.115 Cellulitis of right lower limb; L02.415 Cutaneous abscess of right lower limb; E11.65 Type 2 diabetes mellitus with hyperglycemia; E11.621 Type 2 diabetes mellitus with foot ulcer; L97.512 Non-pressure chronic ulcer of other part of right foot with fat layer exposed; I12.9 Hypertensive chronic kidney disease with stage 1 through stage 4 chronic kidney disease, or unspecified chronic kidney disease; E11.22 Type 2 diabetes mellitus with diabetic chronic kidney disease; N18.3 Chronic kidney disease, stage 3 (moderate); E11.43 Type 2 diabetes mellitus with diabetic autonomic (poly)neuropathy; K31.84 Gastroparesis; Z79.82 Long term (current) use of aspirin; Z79.4 Long term (current) use of insulin; Z79.899 Other long term (current) drug therapy
CPT/HCPCS: 36415; 36416; 71045; 74018; 74019; 75630; 75710; 76942; 80048; 80053; 83036; 83605; 83735; 84100; 85014; 85018; 85025; 85652; 86140; 87040; 88307; 93923; 96365; 96375; 99152; A4216; C1725; C1760; C1769; C1887; C9113; G8978-GP-CL; G8979-GP-CJ; G8987-GO-CK; G8988-GO-CI; J0131; J0360; J0692; J0696; J1644; J1650; J1815; J2001; J2250; J2270; J2405; J2543; J2704; J2765; J3010; J3370; J3490; J7050; L8440; Q0162

== ENCOUNTER 2018-02-03 18:18 | Inpatient (IN) | payer MEDICAID, SELFPAY ==
[2018-02-03 20:30] LABS: #Eosinphils 0.3 thou/uL (0.0-0.7); #Lymphocytes 1.6 thou/uL (1.20-3.40); #Monocytes 0.4 thou/uL (0.11-0.59); #Neutrophils 4.8 thou/uL (1.40-6.50); %Basophils 0.7 % (0.0-1.0); %Eosinophils 3.9 % (0.0-10.0); %Lymphocytes 22.1 % (21.0-51.0); %Monocytes 5.3 % (0.0-10.0); Hemoglobin 10.7 g/dL (14.0-18.0); Mean Corpuscular HGB CONC 34.4 g/dL (32.0-36.0); Mean Corpuscular Hemoglobin 30.6 pg (27.0-31.0); Mean Corpuscular Volume 88.8 fL (78.0-98.0); Mean Platelet Volume 6.9 fL (7.4-10.4); Platelet Count 331 thou/uL (130-400); RBC Distribution Width 12.2 % (11.5-14.5); Red Blood Cell (RBC) Count 3.48 mill/uL (4.70-6.10)
[2018-02-03 20:48] LABS: ALT (SGPT) 26 U/L (8-55); AST (SGOT) 18 U/L (5-34); Albumin 4.1 g/dL (3.4-4.8); Alkaline Phosphatase 138 U/L (40-150); Anion Gap 17 mmol/L (10-20); BUN (Urea Nitrogen) 37 mg/dL (8.4-25.7); Bilirubin, Total 0.4 mg/dL (0.2-1.2); Calc. Creatinine Clearance 0 mL/min (70-130); Calcium 9.8 mg/dL (7.8-10.44); Carbon Dioxide 23 mmol/L (23-31); Chloride 95 mmol/L (98-107); Estimated GFR-MDRD 57; Globulin 3.5 g/dL (2.4-3.5); Glucose 205 mg/dL (83-110); Potassium 4.5 mmol/L (3.5-5.1); Protein, Total 7.6 g/dL (5.8-8.1); Sodium 130 mmol/L (136-145)
--- NOTE | 2018-02-03 21:01 | RAD ---
RIGHT KNEE TWO VIEWS: 02/03/18 HISTORY: Patient had below knee amputation last week and complaining of pain to site. Postoperative changes related to the BKA are noted. Vascular calcifications are seen. No soft tissue air. No bony findings. IMPRESSION: Postop changes. No acute findings. POS: [facility]
[2018-02-03] MEDS ORDERED: Piperacillin/Tazobactam 4.5 GM VIAL ONE (21:56)
[2018-02-03] MEDS ORDERED: Ondansetron HCl/PF 4 MG/2 ML Vial IVP PRN (23:13)
[2018-02-03] MEDS ORDERED: Ondansetron ODT 4 MG TAB SL PRN (23:13)
[2018-02-04] MEDS: Sodium Chloride 0.9% 1,000 ML IV SCH ×4 (00:22→17:17)
[2018-02-04 00:27] LABS: Lactic Acid 1.7 mmol/L (0.5-2.2)
[2018-02-04 01:49] VITALS: BMI 27.2
[2018-02-04] MEDS ORDERED: Piperacillin/Tazobactam 4.5 GM in Sodium Chloride 0.9% 100 ML IVPB SCH (04:00)
[2018-02-04] MEDS ORDERED: Bisacodyl 10 MG SUPP PR PRN (07:07)
[2018-02-04] MEDS ORDERED: Milk Of Magnesia 30 ML UDCUP PO PRN (07:07)
[2018-02-04] MEDS ORDERED: Calcium Carbonate 500 MG ChewTAB PO PRN (07:07)
[2018-02-04] MEDS ORDERED: Polyethylene Glycol 3350 17 GM Packet PO PRN (07:07)
[2018-02-04] MEDS ORDERED: Senokot 8.6 MG TAB PO PRN (07:07)
[2018-02-04] MEDS ORDERED: hydrALAZINE 20 MG/ML VIAL SLOW IVP PRN (07:07)
[2018-02-04] MEDS ORDERED: Ondansetron HCl/PF 4 MG/2 ML Vial IVP PRN (07:07)
[2018-02-04] MEDS ORDERED: Dextrose 50% Abboject 50 ML SYRINGE SLOW IVP PRN (07:07)
[2018-02-04] MEDS ORDERED: Eucerin (Mineral Oil/Petrolatum,White) 30 gm Jar TOP PRN (07:07)
[2018-02-04] MEDS ORDERED: Dextrose 5% in Water 1,000 ML IV PRN (07:07)
[2018-02-04] MEDS ORDERED: Sodium Chloride 0.9% 1,000 ML IV SCH ×2 (07:15→14:15)
[2018-02-04] MEDS ORDERED: Vancomycin HCl 1 GM in Premix Bag 1 BAG IVPB SCH ×2 (07:15→09:00)
--- NOTE | 2018-02-04 08:18 | HP ---
DATE OF ADMISSION: 02/03/2018 The patient was seen and examined on 02/04/2018. This is a leftover admission from last night. CHIEF COMPLAINT: Pain, redness, and drainage from the recent right below-knee amputation stump site. HISTORY OF PRESENT ILLNESS: Patient is an 82-year-old male with diabetes mellitus, type 2; peripheral vascular disease with recent right below-knee amputation; presented to the emergency room with above complaints. History obtained with the help of family aircraft powertrain repairer. The patient is Nauruan- speaking only. Over the last 3-4 days, the patient developed pain along with swelling over the stump site. The pain was throbbing, moderate in intensity. He also noticed warmth and redness around the site. There wa s small amount of clear fluid draining from the incision site. No fever or chills were reported. He denies any recent injury over the stump postop. PAST MEDICAL HISTORY: 1. Recent right BKA for diabetic foot infection with ischemic necrosis and peripheral vascular disea se. 2. Chronic kidney disease, stage 3. 3. Hypertension. 4. Diabetes mellitus, type 2. 5. Peripheral vascular disease. 6. Benign prostatic hypertrophy. PAST SURGICAL HISTORY: 1. Recent right BKA. 2. Hernia repair. ALLERGIES: No known drug allergies. CURRENT HOME MEDICATIONS: Aspirin 81 mg daily, amlodipine 10 mg daily, HCTZ 12.5 mg daily, regular i nsulin 10 units b.i.d., losartan 50 mg twice a day, metformin 850 mg twice a day, NPH 20 units at bed time and 40 units q.a.m., Flomax 0.4 mg daily, tramadol as needed. 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 He has 6 children. He is . FAMILY HISTORY: Positive for diabetes. REVIEW OF SYSTEMS: The following complete review of systems was negative, unless otherwise mentioned in the HPI or below: Constitutional: Weight loss or gain, ability to conduct usual activities. Sk in: Rash, itching. Eyes: Double vision, pain. ENT/Mouth: Nose bleeding, neck stiffness, pain, te nderness. Cardiovascular: Palpitations, dyspnea on exertion, orthopnea. Respiratory: Shortness of breath, wheezing, cough, hemoptysis, fever, or night sweats. Gastrointestinal: Poor appetite, abdo eliza pain, heartburn, nausea, vomiting, constipation, or diarrhea. Genitourinary: Urgency, frequen cy, dysuria, nocturia. Musculoskeletal: Pain, swelling. Neurologic/Psychiatric: Anxiety, depressi on. Allergy/Immunologic: Skin rash, bleeding tendency. PHYSICAL EXAMINATION: VITAL SIGNS: In the emergency room showed temperature 97.9, respirations 18, pulse rate of 71, blood pressure of 136/63 with O2 saturation 97% on room air. GENERAL: An 82-year-old male in mild distress due to pain. HEENT: Head, atraumatic and normocephalic, Sclerae are anicteric. Moist mucous membrane, no oral le chele. NECK: Supple, no JVD, no carotid bruit. LUNGS: Clear to auscultation bilaterally. No wheezing, rales, or rhonchi. HEART: S1 and S2 present. Regular rate and rhythm, a 2/6 systolic murmur over the mitral area. ABDOMEN: Soft, nontender, bowel sounds present. EXTREMITIES: Left lower extremity without any edema or tenderness. The right BKA stump site is warm , tender to palpate with minimal serosanguineous drainage. It was tender on superficial palpation. SKIN: Warm and dry. Other findings as discussed above. LYMPH NODES: No palpable lymph nodes in the neck and groin. NEUROLOGIC: Grossly nonfocal, moves all four extremities. PSYCHIATRY: Alert, awake, oriented x3. LABORATORY FINDINGS: CBC showed WBC 7, hemoglobin 10.7, hematocrit 30.9, platelets 331. Chemistries showed sodium 130, potassium 4.5, chloride 95, bicarbonate 23, BUN 37, creatinine 1.22. Lactic acid 2.4. Repeat lactic acid was 1.7. Right knee x-ray, by my review, was negative for acute findings. There was no subcutaneous air noted. IMPRESSION: 1. Cellulitis of the right below-knee amputation stump site. 2. Lactic acidosis, probably secondary to #1. 3. Chronic anemia. 4. Hyponatremia. 5. Chronic kidney disease stage 3. 6. Diabetes mellitus, type 2. 7. Hypertension. 8. Benign prostatic hypertrophy. 9. Peripheral vascular disease. PLAN: The patient will be monitored on the medical floor. We will continue vancomycin and Zosyn. I V hydration. We will hold hydrochlorothiazide and losartan for now. Continue amlodipine. Monitor v ancomycin level. Continue low dose aspirin. We will start him on NPH 15 units b.i.d. with sliding s antoinette. We will repeat labs in a.m. General Surgery consult. Wound Care consult. Physical therapy a nd occupational therapy. Plan of care was discussed with the patient and the family at the bedside. They stated understanding .
[2018-02-04] MEDS ORDERED: Prevnar 13-Val Conj/PF 0.5 ML SYRINGE IM ONE (09:00)
[2018-02-04] MEDS ORDERED: NPH, Human Insulin Isophane 300 UNIT/3 ML VIAL SC SCH (09:00)
[2018-02-04] MEDS ORDERED: Losartan 25 MG TAB PO SCH (09:00)
[2018-02-04] MEDS: Piperacillin/Tazobactam 3.375 GM in Sodium Chloride 0.9% 100 ML IVPB SCH ×3 (09:09→21:38)
[2018-02-04] MEDS: Tamsulosin HCl 0.4 MG CAP PO SCH (09:10)
[2018-02-04] MEDS: Aspirin 81 mg Enteric Coated Tablet PO SCH (09:10)
[2018-02-04] MEDS: Docusate 100 MG CAP PO SCH ×2 (09:10→21:45)
[2018-02-04] MEDS: Famotidine 20 MG TAB PO SCH ×2 (09:10→21:39)
[2018-02-04] MEDS: Saccharomyces boulardii 250 MG CAP PO SCH (09:10)
[2018-02-04] MEDS: Amlodipine 10 MG TAB PO SCH (09:10)
[2018-02-04] MEDS: NPH, Human Insulin Isophane 300 UNIT/3 ML VIAL SC SCH ×2 (09:18→21:41)
[2018-02-04] MEDS ORDERED: ISOVUE-370 76%-LOCM 1 ML ONE (11:47)
--- NOTE | 2018-02-04 15:04 | CT ---
CT RIGHT LOWER EXTREMITY WITH IV CONTRAST: DATE: 02/04/18. HISTORY: Below the knee amputation last week. The patient is complaining of pain at amputation site. Bruisin g to leg. This is for evaluation of abscess and infection. FINDINGS: There are postsurgical changes related to below the knee amputation right lower extremity. There is edema within the soft tissues at the amputation site with surgical clips seen distally. There is a l arger low-density area measuring approximately 3 cm within the more lateral aspect of the stump of th e amputation measuring 3 cm. No well-defined enhancing surrounding carrasco are present. This may be r elated to postoperative collection, although a developing infection could not be entirely excluded. There is mild skin thickening and subcutaneous edema as noted and cellulitis is a possibility. Dense vascular calcifications are seen in the popliteal and tibioperoneal vessels. There is occlusio n of the left popliteal artery just below the level of the knee joint. There is a small joint effusion at the knee. No other findings. IMPRESSION: 1. Postsurgical changes related to right below the knee amputation. There is subcutaneous edema wit h fluid collection right aspect of the stump of the right lower extremity, and these findings could b e related to postoperative in origin with subcutaneous edema. However, cellulitis with developing in fection in the right lateral aspect of the stump of the amputation could not be entirely excluded bas ed on this exam. 2. Dense atherosclerotic vascular calcifications with occlusion of the popliteal artery just below t he level of the knee joint. 3. Small joint effusion. POS: [facility]
[2018-02-04] MEDS: Insulin Regular 300 UNITS/3 ML VIAL SC PRN (16:19)
--- NOTE | 2018-02-04 19:50 | CON ---
DATE OF CONSULTATION: 02/04/2018 REASON FOR CONSULTATION: Possible postop wound infection. HISTORY: Mr. Lopez is an 82-year-old man, who underwent a right BKA by Dr. Fraga about a week ag o. He was discharged home, but states that he developed a blister over the anterior stump shortly af ter discharge. This was initially clear, but then became dark in color. He also had a little bit of drainage from the blister, but denies any drainage from the incision itself. His leg has gotten mor bit and swollen and tender over the past 3-4 days, so they decided to come into the emergency room. He denies any fevers or chills. PAST MEDICAL HISTORY: Chronic kidney disease, hypertension, diabetes, peripheral vascular disease, B PH, and status post BKA for diabetic foot infection with peripheral vascular disease. PAST SURGICAL HISTORY: BKA on the right and hernia repair. ALLERGIES: He has no known drug allergies. OUTPATIENT MEDICATIONS: Include aspirin, losartan, amlodipine, hydrochlorothiazide, insulin, metform in, Flomax, and tramadol. SOCIAL HISTORY: He does not smoke or drink or use illicit drugs. He speaks Maltese only. FAMILY HISTORY: Diabetes. REVIEW OF SYSTEMS: Ten-system review of systems is negative except per HPI. PHYSICAL EXAMINATION: VITAL SIGNS: Patient has been afebrile since his admission to the hospital, heart rate 76, respirati ons 14, 97% saturated on room air, blood pressure 166/79. GENERAL: Reveals a healthy-appearing man in no acute distress. He is not flushed or toxic in appear ance. He is not jaundiced or icteric. HEENT: Unremarkable. NECK: Supple, without lymphadenopathy. HEART: Regular in its rate and rhythm without murmurs, rubs or gallops. LUNGS: Clear to auscultation bilaterally. ABDOMEN: Soft, nontender and nondistended. EXTREMITIES: His left foot is without open wounds and warm to the touch. His right BKA stump has si gnificant erythema and swelling. It is tender to touch, especially at the central incision, but ther e is no fluctuance or bogginess and no expressible drainage from the incision. He has a blood bliste r on the anterior portion of his stump, which is not actively draining at this time and which was not unroofed. There is no odor or drainage to the wound. NEUROLOGIC: No focal deficits. PSYCHIATRIC: Alert, oriented, and appropriate, conversing appropriately using the Maltese language i nterpreter. LABORATORY DATA: White count is normal at 7, but neutrophil count is high normal. Electrolytes are unremarkable. BUN and creatinine are 37 and 1.22. Lactate was initially 2.4, but came down to 1.7 a fter hydration. Swab was taken of his right foot and this showed many gram positive cocci in pairs, chains and clusters. ASSESSMENT: Erythema, induration and tenderness of the right BKA stump without expressible drainage from the incision at this time, although he apparently had some drainage earlier. I cannot feel any fluctuance in the wound, so I have ordered a CT scan to see if he has an abscess that needs to be diana ined. If no abscess is seen then compression, elevation, and antibiotics are recommended. If he pierce s have an abscess that needs to be drained. We will decide whether to this at the bedside or in the OR. Clinically, he is stable.
[2018-02-04] MEDS ORDERED: Vancomycin HCl 1.25 GM in Sodium Chloride 0.9% 250 ML 250 ML IVPB SCH (21:00)
[2018-02-04] MEDS: Enoxaparin Sodium 40 MG/0.4 ML SYRINGE SC SCH (21:39)
[2018-02-05] MEDS: Piperacillin/Tazobactam 3.375 GM in Sodium Chloride 0.9% 100 ML IVPB SCH ×4 (02:19→20:59)
[2018-02-05 05:35] LABS: Anion Gap 12 mmol/L (10-20); BUN (Urea Nitrogen) 13 mg/dL (8.4-25.7); Calc. Creatinine Clearance 70 mL/min (70-130); Calcium 9.1 mg/dL (7.8-10.44); Carbon Dioxide 25 mmol/L (23-31); Chloride 107 mmol/L (98-107); Estimated GFR-MDRD 75; Glucose 80 mg/dL (83-110); Magnesium 1.8 mg/dL (1.6-2.6); Potassium 3.6 mmol/L (3.5-5.1); Sodium 140 mmol/L (136-145)
[2018-02-05 05:55] LABS: #Eosinphils 0.2 thou/uL (0.0-0.7); #Lymphocytes 1.2 thou/uL (1.20-3.40); #Monocytes 0.4 thou/uL (0.11-0.59); %Basophils 0.5 % (0.0-1.0); %Eosinophils 3.7 % (0.0-10.0); %Lymphocytes 20.2 % (21.0-51.0); %Monocytes 6.5 % (0.0-10.0); %Neutrophils 69.2 % (42.0-75.0); Mean Corpuscular HGB CONC 34.5 g/dL (32.0-36.0); Mean Corpuscular Hemoglobin 30.9 pg (27.0-31.0); Mean Corpuscular Volume 89.4 fL (78.0-98.0); Platelet Count 284 thou/uL (130-400); RBC Distribution Width 12.2 % (11.5-14.5); Red Blood Cell (RBC) Count 3.25 mill/uL (4.70-6.10); White Blood Cell (WBC) Count 5.8 thou/uL (4.8-10.8)
[2018-02-05] MEDS ORDERED: D5 1/2 NS w/20 mEq KCL 1,000 ML IV SCH (07:45)
[2018-02-05] MEDS: Amlodipine 10 MG TAB PO SCH (08:32)
[2018-02-05] MEDS: Tamsulosin HCl 0.4 MG CAP PO SCH (08:32)
[2018-02-05] MEDS: Famotidine 20 MG TAB PO SCH ×2 (08:33→21:38)
[2018-02-05] MEDS: Docusate 100 MG CAP PO SCH ×2 (08:33→21:38)
[2018-02-05] MEDS: Aspirin 81 mg Enteric Coated Tablet PO SCH (08:33)
[2018-02-05] MEDS: Saccharomyces boulardii 250 MG CAP PO SCH (08:33)
[2018-02-05] MEDS: NPH, Human Insulin Isophane 300 UNIT/3 ML VIAL SC SCH ×2 (08:46→21:39)
[2018-02-05] MEDS ORDERED: Saccharomyces boulardii 250 MG CAP PO SCH (09:00)
[2018-02-05] MEDS: Insulin Regular 300 UNITS/3 ML VIAL SC PRN ×2 (16:13→21:40)
--- NOTE | 2018-02-05 19:27 | PDOC.PN ---
- Subjective Encounter Start Date: 02/05/18 Encounter Start Time: 06:30 Patient seen and examined for cellulitis. No new complaints. No overnight events - Objective Resuscitation Status: Resuscitation Status FULL:Full Resuscitation MAR Reviewed: Yes Vital Signs & Weight: Vital Signs (12 hours) Temp Pulse Resp BP BP Pulse Ox 02/05/18 15:22 97.5 F L 74 16 154/72 H 98 02/05/18 11:23 98.2 F 74 16 153/71 H 97 02/05/18 08:32 77 183/76 H 02/05/18 08:00 98.1 F 77 16 98 Weight Admit Weight 189 lb 15.84 oz Weight 189 lb 15.91 oz I&O: 02/04/18 02/05/18 02/06/18 06:59 06:59 06:59 Intake Total 2350 2120 Balance 2350 2120 Result Diagrams: 02/05/18 04:51 02/05/18 04:51 Additional Labs: Accuchecks 02/05/18 02/05/18 02/05/18 15:25 10:04 05:36 POC Glucose 286 H 147 H 89 02/04/18 20:42 POC Glucose 227 H Phys Exam - Physical Examination Constitutional: NAD Respiratory: no wheezing, no rhonchi Cardiovascular: RRR, no rub Gastrointestinal: soft, non-tender, positive bowel sounds Musculoskeletal: no edema Dressing over the stump + Neurological: non-focal, moves all 4 limbs Dx/Plan - Plan IMPRESSION: 1. Cellulitis of the right below-knee amputation stump site. 2. Lactic acidosis, probably secondary to #1. improved 3. Chronic anemia. 4. Hyponatremia. 5. Chronic kidney disease stage 3. 6. Diabetes mellitus, type 2. 7. Hypertension. 8. Benign prostatic hypertrophy on Flomax 9. Peripheral vascular disease. PLAN: Cont Vancomycin and Zosyn Change NPH to 15 QAM and 10 HS Cont sliding scale Cont Amlodipine AM labs Cont current meds as below Monitor Vancomycin level Review of Systems - Review of Systems Respiratory: negative: Cough, Dry, Shortness of Breath, Hemoptysis, SOB with Excertion, Pleuritic Pain, Sputum, Wheezing Cardiovascular: negative: chest pain, palpitations, orthopnea, paroxysmal nocturnal dyspnea, edema, light headedness, other - Medications/Allergies Allergies/Adverse Reactions: Allergies Allergy/AdvReac Type Severity Reaction Status Date / Time No Known Allergies Allergy Verified 02/03/18 23:08 Medications: Current Medications Acetaminophen (Tylenol) 650 mg PO Q4H PRN PRN Reason: Headache/Fever or Pain Amlodipine Besylate (Norvasc) 10 mg PO DAILY [facility] Last Admin: 02/05/18 08:32 Dose: 10 mg Aspirin (Ecotrin) 81 mg PO DAILY [facility] Last Admin: 02/05/18 08:33 Dose: 81 mg Bisacodyl (Dulcolax) 10 mg [place] Q24H PRN PRN Reason: Constipation Calcium Carbonate (Tums) 1,000 mg PO Q4H PRN PRN Reason: Heartburn or Indigestion Dextrose/Water (Dextrose 50%) 25 gm SLOW IVP PRN PRN PRN Reason: Hypoglycemia Docusate Sodium (Colace) 100 mg PO BID [facility] Last Admin: 02/05/18 08:33 Dose: 100 mg Enoxaparin Sodium (Lovenox) 40 mg SC 2100 [facility] Last Admin: 02/04/18 21:39 Dose: 40 mg Famotidine (Pepcid) 20 mg PO BID [facility] Last Admin: 02/05/18 08:33 Dose: 20 mg Glucagon (Glucagon) 1 mg IM PRN PRN PRN Reason: Hypoglycemia Hydralazine HCl (Apresoline) 10 mg SLOW IVP Q4H PRN PRN Reason: SBP Greater Than 180 Dextrose/Water (D5w) 1,000 mls @ 0 mls/hr IV .Q0M PRN; As Directed PRN Reason: Hypoglycemia Piperacillin Sod/Tazobactam (Sod 3.375 gm/ Sodium Chloride) 100 mls @ 200 mls/ hr IVPB 0200,0800,1400,2000 [facility] Last Admin: 02/05/18 16:12 Dose: 100 mls Vancomycin HCl 1.25 gm/ Sodium (Chloride) 250 mls @ 166.667 mls/hr IVPB 2100 [facility] Last Admin: 02/04/18 21:38 Dose: 250 mls Sodium Chloride (Normal Saline 0.9%) 1,000 mls @ 70 mls/hr IV .[id number] [facility] Insulin Human NPH (Humulin N) 15 unit SC QAM [facility] Last Admin: 02/05/18 08:46 Dose: Not Given Insulin Human NPH (Humulin N) 10 unit SC HS [facility] Insulin Human Regular (Humulin R) 0 units SC .MILD SLIDING SCALE PRN PRN Reason: Mild Correctional Scale Last Admin: 02/05/18 16:13 Dose: 4 unit Insulin Human Regular (Humulin R) 0 units SC .BEDTIME SLIDING SC PRN PRN Reason: Bedtime Correctional Scale Magnesium Hydroxide (Milk Of Magnesium) 30 ml PO DAILYPRN PRN PRN Reason: Constipation Mineral Oil/White Petrolatum (Eucerin Cream) 0 gm TOP BIDPRN PRN PRN Reason: Dry Skin Miscellaneous Medication (Pharmacy To Dose) 1 each IVPB ONE PRN PRN Reason: Pharmacy to dose Stop: 03/06/18 07:08 Ondansetron HCl (Zofran Odt) 4 mg PO Q6H PRN PRN Reason: Nausea/Vomiting Ondansetron HCl (Zofran) 4 mg IVP Q6H PRN PRN Reason: Nausea/Vomiting Polyethylene Glycol (Miralax) 17 gm PO DAILY PRN PRN Reason: Constipation Saccharomyces Boulardii (Florastor) 250 mg PO DAILY [facility] Last Admin: 02/05/18 08:33 Dose: 250 mg Senna (Senokot) 2 tab PO HSPRN PRN PRN Reason: Constipation Sodium Chloride (Flush - Normal Saline) 10 ml IVF Q12HR [facility] Last Admin: 02/05/18 08:47 Dose: Not Given Sodium Chloride (Flush - Normal Saline) 10 ml IVF PRN PRN PRN Reason: Saline Flush Tamsulosin HCl (Flomax) 0.4 mg PO DAILY [facility] Last Admin: 02/05/18 08:32 Dose: 0.4 mg Tramadol HCl (Ultram) 50 mg PO Q6H PRN PRN Reason: Pain 2-5
[2018-02-05 20:22] LABS: Vancomycin, Trough 6.8 ug/mL
[2018-02-05] MEDS: Sodium Chloride 0.9% 1,000 ML IV SCH (21:01)
[2018-02-05] MEDS: Enoxaparin Sodium 40 MG/0.4 ML SYRINGE SC SCH (21:38)
[2018-02-05] MEDS: Vancomycin HCl 1 GM in Premix Bag 1 BAG IVPB SCH (21:39)
[2018-02-06] MEDS: Piperacillin/Tazobactam 3.375 GM in Sodium Chloride 0.9% 100 ML IVPB SCH ×4 (02:30→21:03)
[2018-02-06] MEDS: Insulin Regular 300 UNITS/3 ML VIAL SC PRN ×3 (06:21→22:02)
[2018-02-06] MEDS: NPH, Human Insulin Isophane 300 UNIT/3 ML VIAL SC SCH ×2 (08:56→22:01)
[2018-02-06] MEDS: traMADol HCl 50 MG TAB PO PRN ×2 (08:57→22:00)
[2018-02-06] MEDS: Amlodipine 10 MG TAB PO SCH (08:58)
[2018-02-06] MEDS: Docusate 100 MG CAP PO SCH ×2 (08:58→22:00)
[2018-02-06] MEDS: Famotidine 20 MG TAB PO SCH ×2 (08:58→22:00)
[2018-02-06] MEDS: Acetaminophen 325 MG TAB PO PRN ×2 (08:58→13:04)
[2018-02-06] MEDS: Saccharomyces boulardii 250 MG CAP PO SCH (08:58)
[2018-02-06] MEDS: Aspirin 81 mg Enteric Coated Tablet PO SCH (08:58)
[2018-02-06] MEDS: Tamsulosin HCl 0.4 MG CAP PO SCH (08:58)
[2018-02-06] MEDS: Vancomycin HCl 1 GM in Premix Bag 1 BAG IVPB SCH ×2 (08:59→22:01)
[2018-02-06] MEDS: Sodium Chloride 0.9% 1,000 ML IV SCH ×3 (09:09→18:41)
--- NOTE | 2018-02-06 09:55 | CON ---
Mr. Lopez is an 82-year-old man who is status post [id number] amputation by Dr. Fraga over a week ago. His family brought him into the hospital because they were concerned about a blister of the stump, which had turned a dark color. This has been present for a few days but they were concerned by the color change, so he came into the emergency room. He was noted to have erythema of the stump, extending almost to the knee. A CT was scan performed, which showed a possible fluid collection from the lateral aspect of the stump but nearly abscess could not be ruled out with the alternatives being a postoperative hematoma. Javier were removed at the bedside when I saw him with the wound care team yesterday and I opened up the wound in the direction of the fluid collection, which seemed to be tracking medially. A small amount of old bloody liquid was drained and this was sent for culture. However, there was no abscess. Today, the patient's stump has improved in appearance, the erythema has decreased and he is less tender. On bedside ultrasound, I do not see any significant residual fluid collection under the lateral aspect of the stump. We are going to continue with dressing changes by the wound care team and antibiotic. If the cellulitis does not resolve then repeat imaging may be needed. TANVI
--- NOTE | 2018-02-06 18:06 | PDOC.PN ---
- Subjective Encounter Start Date: 02/06/18 Encounter Start Time: 10:00 Patient seen and examined for cellulitis. Pain controlled. No fever or chills. No new complaints. No overnight events - Objective Resuscitation Status: Resuscitation Status FULL:Full Resuscitation MAR Reviewed: Yes Vital Signs & Weight: Vital Signs (12 hours) Temp Pulse Resp BP BP Pulse Ox 02/06/18 15:17 97.2 F L 67 16 154/79 H 98 02/06/18 11:50 97.3 F L 76 16 155/83 H 98 02/06/18 08:58 70 02/06/18 08:00 98.5 F 70 18 02/06/18 07:15 98.5 F 70 16 170/74 H 98 Weight Admit Weight 189 lb 15.84 oz Weight 189 lb 15.91 oz I&O: 02/05/18 02/06/18 02/07/18 06:59 06:59 06:59 Intake Total 2350 3300 Balance 2350 3300 Result Diagrams: 02/05/18 04:51 02/05/18 04:51 Additional Labs: Accuchecks 02/06/18 02/06/18 02/06/18 16:25 12:00 05:33 POC Glucose 176 H 287 H 156 H 02/06/18 02/05/18 02/05/18 02:20 20:32 15:25 POC Glucose 159 H 292 H 286 H 02/04/18 11:45 POC Glucose 136 H Microbiology 02/04/18 15:50 Stump - Right Bacterial Culture - Preliminary 02/03/18 20:19 Venous blood - Left Hand Blood Culture - Preliminary NO GROWTH AT 48 HOURS 02/03/18 20:17 Venous blood - Right Arm Blood Culture - Preliminary NO GROWTH AT 48 HOURS 02/03/18 20:06 Knee - Right Bacterial Culture - Preliminary Streptococcus agalactiae Gp. B Pseudomonas pseudoalcaligenes Radiology Reviewed by me: Yes (CT - Cellulitis) Phys Exam - Physical Examination Constitutional: NAD Respiratory: no wheezing, no rhonchi Cardiovascular: RRR, no rub Gastrointestinal: soft, non-tender, positive bowel sounds Musculoskeletal: no edema Dressing over the stump Neurological: moves all 4 limbs Dx/Plan - Plan IMPRESSION: 1. Cellulitis of the right below-knee amputation stump site - on Vancomycin and Zosyn - improving 2. Lactic acidosis, probably secondary to #1. improved 3. Chronic anemia. 4. Hyponatremia. improving 5. Chronic kidney disease stage 3. 6. Diabetes mellitus, type 2. on NPH with sliding scale 7. Hypertension. 8. Benign prostatic hypertrophy on Flomax 9. Peripheral vascular disease - on ASA PLAN: Cont Antibiotics Cont NPH 15 QAM and 10 HS with sliding scale Cont Amlodipine AM labs Cont current meds as below Monitor Vancomycin level Reduce IVF to 50 ml/hr Review of Systems - Review of Systems Respiratory: negative: Cough, Dry, Shortness of Breath, Hemoptysis, SOB with Excertion, Pleuritic Pain, Sputum, Wheezing Cardiovascular: negative: chest pain, palpitations, orthopnea, paroxysmal nocturnal dyspnea, edema, light headedness, other - Medications/Allergies Allergies/Adverse Reactions: Allergies Allergy/AdvReac Type Severity Reaction Status Date / Time No Known Allergies Allergy Verified 02/03/18 23:08 Medications: Current Medications Acetaminophen (Tylenol) 650 mg PO Q4H PRN PRN Reason: Headache/Fever or Pain Last Admin: 02/06/18 13:04 Dose: 650 mg Amlodipine Besylate (Norvasc) 10 mg PO DAILY [facility] Last Admin: 02/06/18 08:58 Dose: 10 mg Aspirin (Ecotrin) 81 mg PO DAILY [facility] Last Admin: 02/06/18 08:58 Dose: 81 mg Bisacodyl (Dulcolax) 10 mg [place] Q24H PRN PRN Reason: Constipation Calcium Carbonate (Tums) 1,000 mg PO Q4H PRN PRN Reason: Heartburn or Indigestion Dextrose/Water (Dextrose 50%) 25 gm SLOW IVP PRN PRN PRN Reason: Hypoglycemia Docusate Sodium (Colace) 100 mg PO BID [facility] Last Admin: 02/06/18 08:58 Dose: 100 mg Enoxaparin Sodium (Lovenox) 40 mg SC 2100 [facility] Last Admin: 02/05/18 21:38 Dose: 40 mg Famotidine (Pepcid) 20 mg PO BID [facility] Last Admin: 02/06/18 08:58 Dose: 20 mg Glucagon (Glucagon) 1 mg IM PRN PRN PRN Reason: Hypoglycemia Hydralazine HCl (Apresoline) 10 mg SLOW IVP Q4H PRN PRN Reason: SBP Greater Than 180 Dextrose/Water (D5w) 1,000 mls @ 0 mls/hr IV .Q0M PRN; As Directed PRN Reason: Hypoglycemia Piperacillin Sod/Tazobactam (Sod 3.375 gm/ Sodium Chloride) 100 mls @ 200 mls/ hr IVPB 0200,0800,1400,2000 [facility] Last Admin: 02/06/18 15:27 Dose: 100 mls Sodium Chloride (Normal Saline 0.9%) 1,000 mls @ 70 mls/hr IV .[id number] [facility] Last Admin: 02/06/18 16:39 Dose: 1,000 mls Vancomycin HCl 1 gm/ Device 200 mls @ 200 mls/hr IVPB Q12HR [facility] Last Admin: 02/06/18 08:59 Dose: 200 mls Insulin Human NPH (Humulin N) 15 unit SC QAM [facility] Last Admin: 02/06/18 08:56 Dose: 15 unit Insulin Human NPH (Humulin N) 10 unit SC HS [facility] Last Admin: 02/05/18 21:39 Dose: 10 units Insulin Human Regular (Humulin R) 0 units SC .MILD SLIDING SCALE PRN PRN Reason: Mild Correctional Scale Last Admin: 02/06/18 13:07 Dose: 4 unit Insulin Human Regular (Humulin R) 0 units SC .BEDTIME SLIDING SC PRN PRN Reason: Bedtime Correctional Scale Last Admin: 02/05/18 21:40 Dose: 3 units Magnesium Hydroxide (Milk Of Magnesium) 30 ml PO DAILYPRN PRN PRN Reason: Constipation Mineral Oil/White Petrolatum (Eucerin Cream) 0 gm TOP BIDPRN PRN PRN Reason: Dry Skin Miscellaneous Medication (Pharmacy To Dose) 1 each IVPB ONE PRN PRN Reason: Pharmacy to dose Stop: 03/06/18 07:08 Ondansetron HCl (Zofran Odt) 4 mg PO Q6H PRN PRN Reason: Nausea/Vomiting Ondansetron HCl (Zofran) 4 mg IVP Q6H PRN PRN Reason: Nausea/Vomiting Polyethylene Glycol (Miralax) 17 gm PO DAILY PRN PRN Reason: Constipation Saccharomyces Boulardii (Florastor) 250 mg PO DAILY [facility] Last Admin: 02/06/18 08:58 Dose: 250 mg Senna (Senokot) 2 tab PO HSPRN PRN PRN Reason: Constipation Sodium Chloride (Flush - Normal Saline) 10 ml IVF Q12HR [facility] Last Admin: 02/06/18 08:57 Dose: 10 ml Sodium Chloride (Flush - Normal Saline) 10 ml IVF PRN PRN PRN Reason: Saline Flush Tamsulosin HCl (Flomax) 0.4 mg PO DAILY [facility] Last Admin: 02/06/18 08:58 Dose: 0.4 mg Tramadol HCl (Ultram) 50 mg PO Q6H PRN PRN Reason: Pain 2-5 Last Admin: 02/06/18 08:57 Dose: 50 mg
--- NOTE | 2018-02-06 21:51 | PDOC.GSPN ---
Surgery Progress Note: Subj - Subjective Narrative: Patient feels better today. He is not having much pain in his stump. No drainage on the dressings. He is afebrile. Culture negative to date. He still has cellulitis of his stump of the erythema is less. His posterior history and then this was unroofed today and Silvadene placed. We will continue with packing of his stump although the cavity is small. Continue with PT OT. Consider reimaging if the erythema does not resolve soon. Surgery Progress Note: Obj - Vital signs Vital signs: Vital Signs - Most Recent Temp Pulse Resp BP Pulse Ox 97.9 F 67 16 163/75 H 98 02/06/18 20:00 02/06/18 20:00 02/06/18 20:00 02/06/18 20:00 02/06/18 20:00 Surgery Progress Note: Results - Labs Result Diagrams: 02/05/18 04:51 02/05/18 04:51 Lab results: Laboratory Results - last 24 hr 02/06/18 02/06/18 02/06/18 12:00 16:25 20:40 POC Glucose 287 H 176 H 214 H
--- NOTE | 2018-02-06 21:59 | PDOC.GSPN ---
Surgery Progress Note: Subj - Subjective Narrative: Patient denies pain except with dressing changes. He is afebrile. Erythema is slowly improving. No drainage from the I&D site. Assessment/plan: BKA stump cellulitis. Continue antibiotics and dressing changes. Surgery Progress Note: Obj - Vital signs Vital signs: Vital Signs - Most Recent Temp Pulse Resp BP Pulse Ox 97.9 F 67 16 163/75 H 98 02/06/18 20:00 02/06/18 20:00 02/06/18 20:00 02/06/18 20:00 02/06/18 20:00 Surgery Progress Note: Results - Labs Result Diagrams: 02/05/18 04:51 02/05/18 04:51 Lab results: Laboratory Results - last 24 hr 02/06/18 02/06/18 02/06/18 12:00 16:25 20:40 POC Glucose 287 H 176 H 214 H
[2018-02-06] MEDS: Enoxaparin Sodium 40 MG/0.4 ML SYRINGE SC SCH (22:00)
[2018-02-07] MEDS: Piperacillin/Tazobactam 3.375 GM in Sodium Chloride 0.9% 100 ML IVPB SCH ×4 (01:56→20:08)
[2018-02-07] MEDS: Insulin Regular 300 UNITS/3 ML VIAL SC PRN ×2 (02:16→18:13)
[2018-02-07 04:52] LABS: #Eosinphils 0.3 thou/uL (0.0-0.7); #Lymphocytes 1.3 thou/uL (1.20-3.40); #Monocytes 0.3 thou/uL (0.11-0.59); #Neutrophils 2.4 thou/uL (1.40-6.50); %Basophils 0.9 % (0.0-1.0); %Eosinophils 6.9 % (0.0-10.0); %Lymphocytes 30.5 % (21.0-51.0); %Monocytes 7.3 % (0.0-10.0); %Neutrophils 54.5 % (42.0-75.0); Hemoglobin 10.1 g/dL (14.0-18.0); Mean Corpuscular HGB CONC 35.2 g/dL (32.0-36.0); Mean Corpuscular Hemoglobin 31.2 pg (27.0-31.0); Mean Corpuscular Volume 88.7 fL (78.0-98.0); Mean Platelet Volume 6.5 fL (7.4-10.4); Platelet Count 264 thou/uL (130-400); RBC Distribution Width 12.2 % (11.5-14.5); Red Blood Cell (RBC) Count 3.24 mill/uL (4.70-6.10); White Blood Cell (WBC) Count 4.4 thou/uL (4.8-10.8)
[2018-02-07 04:58] LABS: Anion Gap 14 mmol/L (10-20); BUN (Urea Nitrogen) 9 mg/dL (8.4-25.7); Calc. Creatinine Clearance 82 mL/min (70-130); Calcium 8.6 mg/dL (7.8-10.44); Carbon Dioxide 22 mmol/L (23-31); Chloride 105 mmol/L (98-107); Estimated GFR-MDRD 90; Glucose 144 mg/dL (83-110); Potassium 3.5 mmol/L (3.5-5.1); Sodium 137 mmol/L (136-145)
[2018-02-07] MEDS: Amlodipine 10 MG TAB PO SCH (08:55)
[2018-02-07] MEDS: Tamsulosin HCl 0.4 MG CAP PO SCH (08:55)
[2018-02-07] MEDS: Saccharomyces boulardii 250 MG CAP PO SCH (08:55)
[2018-02-07] MEDS: Famotidine 20 MG TAB PO SCH ×2 (08:56→20:10)
[2018-02-07] MEDS: Aspirin 81 mg Enteric Coated Tablet PO SCH (08:56)
[2018-02-07] MEDS: Docusate 100 MG CAP PO SCH ×2 (08:56→20:11)
[2018-02-07] MEDS: NPH, Human Insulin Isophane 300 UNIT/3 ML VIAL SC SCH ×2 (08:57→21:40)
[2018-02-07] MEDS: Vancomycin HCl 1 GM in Premix Bag 1 BAG IVPB SCH ×2 (10:02→21:45)
[2018-02-07] MEDS: traMADol HCl 50 MG TAB PO PRN ×2 (10:20→20:16)
--- NOTE | 2018-02-07 15:18 | PDOC.GSPN ---
Surgery Progress Note: Subj - Subjective Narrative: Patient is okay. Stump is continuing to slowly reduce the amount of erythema present. There is only old bloody drainage and small pieces dark clot from the wound packing. He has been afebrile. We'll continue with dressing changes and antibiotics. So far the hematoma culture has not grown anything. Surgery Progress Note: Obj - Vital signs Vital signs: Vital Signs - Most Recent Temp Pulse Resp BP Pulse Ox 97.5 F L 72 22 H 178/88 H 99 02/07/18 11:23 02/07/18 11:23 02/07/18 11:23 02/07/18 11:23 02/07/18 11:23 Surgery Progress Note: Results - Labs Result Diagrams: 02/07/18 04:16 02/07/18 04:16 Lab results: Laboratory Results - last 24 hr 02/07/18 02/07/18 02/07/18 04:16 04:16 08:21 WBC 4.4 L RBC 3.24 L Hgb 10.1 L Hct 28.8 L MCV 88.7 MCH 31.2 H MCHC 35.2 RDW 12.2 Plt Count 264 MPV 6.5 L Neutrophils % 54.5 Lymphocytes % 30.5 Monocytes % 7.3 Eosinophils % 6.9 Basophils % 0.9 Neutrophils # 2.4 Lymphocytes # 1.3 Monocytes # 0.3 Eosinophils # 0.3 Basophils # 0.0 Sodium 137 Potassium 3.5 Chloride 105 Carbon Dioxide 22 L Anion Gap 14 BUN 9 Creatinine 0.82 Estimated GFR (MDRD) 90 Glucose 144 H Calcium 8.6 Vancomycin Trough 13.0
[2018-02-07] MEDS: Sodium Chloride 0.9% 1,000 ML IV SCH (18:15)
[2018-02-07] MEDS: Enoxaparin Sodium 40 MG/0.4 ML SYRINGE SC SCH (20:11)
[2018-02-07] MEDS ORDERED: Eucerin (Mineral Oil/Petrolatum,White) 30 gm Jar TOP PRN (20:18)
--- NOTE | 2018-02-07 20:23 | PDOC.PN ---
- Subjective Encounter Start Date: 02/07/18 Encounter Start Time: 10:30 Patient seen and examined for Stump cellulitis. No new complaints. No CP/SOB/ fever/N/V. No overnight events - Objective Resuscitation Status: Resuscitation Status FULL:Full Resuscitation MAR Reviewed: Yes Vital Signs & Weight: Vital Signs (12 hours) Temp Pulse Resp BP BP BP Pulse Ox 02/07/18 19:59 97.9 F 69 16 165/82 H 99 02/07/18 15:39 97.6 F 64 22 H 166/74 H 99 02/07/18 11:23 97.5 F L 72 22 H 178/88 H 99 02/07/18 08:55 67 168/79 H Weight Admit Weight 189 lb 15.84 oz Weight 189 lb 15.91 oz I&O: 02/06/18 02/07/18 02/08/18 06:59 06:59 06:59 Intake Total 3300 2910 Output Total 300 Balance 3300 2610 Result Diagrams: 02/07/18 04:16 02/07/18 04:16 Additional Labs: Accuchecks 02/07/18 02/07/18 02/07/18 16:36 05:37 02:00 POC Glucose 272 H 114 H 206 H 02/06/18 20:40 POC Glucose 214 H Phys Exam - Physical Examination Constitutional: NAD Respiratory: no wheezing, no rhonchi Cardiovascular: RRR, no rub Gastrointestinal: soft, non-tender, positive bowel sounds Musculoskeletal: no edema dressing over the stump Dx/Plan - Plan DVT proph w/lovenox IMPRESSION: 1. Cellulitis of the right below-knee amputation stump site - improving 2. Lactic acidosis, probably secondary to #1. improved 3. Chronic anemia. 4. Hyponatremia. improving 5. Chronic kidney disease stage 3. 6. Diabetes mellitus, type 2. on NPH with sliding scale 7. Hypertension. uncontrolled. 8. Benign prostatic hypertrophy on Flomax 9. Peripheral vascular disease - on ASA PLAN: Resume Losartan, HCTZ and Metformin Cont Antibiotics Cont NPH with sliding scale Cont Amlodipine Cont current meds as below Monitor Vancomycin level DC IVF Review of Systems - Review of Systems Respiratory: negative: Cough, Dry, Shortness of Breath, Hemoptysis, SOB with Excertion, Pleuritic Pain, Sputum, Wheezing Cardiovascular: negative: chest pain, palpitations, orthopnea, paroxysmal nocturnal dyspnea, edema, light headedness, other Gastrointestinal: Constipation. negative: Nausea, Vomiting, Abdominal Pain, Diarrhea, Melena, Hematochezia, Other - Medications/Allergies Allergies/Adverse Reactions: Allergies Allergy/AdvReac Type Severity Reaction Status Date / Time No Known Allergies Allergy Verified 02/03/18 23:08 Medications: Current Medications Acetaminophen (Tylenol) 650 mg PO Q4H PRN PRN Reason: Headache/Fever or Pain Last Admin: 02/06/18 13:04 Dose: 650 mg Amlodipine Besylate (Norvasc) 10 mg PO DAILY [facility] Last Admin: 02/07/18 08:55 Dose: 10 mg Aspirin (Ecotrin) 81 mg PO DAILY [facility] Last Admin: 02/07/18 08:56 Dose: 81 mg Bisacodyl (Dulcolax) 10 mg [place] Q24H PRN PRN Reason: Constipation Calcium Carbonate (Tums) 1,000 mg PO Q4H PRN PRN Reason: Heartburn or Indigestion Dextrose/Water (Dextrose 50%) 25 gm SLOW IVP PRN PRN PRN Reason: Hypoglycemia Enoxaparin Sodium (Lovenox) 40 mg SC 2100 [facility] Last Admin: 02/07/18 20:11 Dose: 40 mg Famotidine (Pepcid) 20 mg PO BID [facility] Last Admin: 02/07/18 20:10 Dose: 20 mg Glucagon (Glucagon) 1 mg IM PRN PRN PRN Reason: Hypoglycemia Hydralazine HCl (Apresoline) 10 mg SLOW IVP Q4H PRN PRN Reason: SBP Greater Than 180 Hydrochlorothiazide (Hydrochlorothiazide) 12.5 mg PO DAILY [facility] Dextrose/Water (D5w) 1,000 mls @ 0 mls/hr IV .Q0M PRN; As Directed PRN Reason: Hypoglycemia Piperacillin Sod/Tazobactam (Sod 3.375 gm/ Sodium Chloride) 100 mls @ 200 mls/ hr IVPB 0200,0800,1400,2000 [facility] Last Admin: 02/07/18 20:08 Dose: 100 mls Vancomycin HCl 1 gm/ Device 200 mls @ 200 mls/hr IVPB Q12HR [facility] Last Admin: 02/07/18 10:02 Dose: 200 mls Insulin Human NPH (Humulin N) 15 unit SC QAM [facility] Last Admin: 02/07/18 08:57 Dose: 15 unit Insulin Human NPH (Humulin N) 10 unit SC HS [facility] Last Admin: 02/06/18 22:01 Dose: 10 units Insulin Human Regular (Humulin R) 0 units SC .MILD SLIDING SCALE PRN PRN Reason: Mild Correctional Scale Last Admin: 02/07/18 18:13 Dose: 4 unit Insulin Human Regular (Humulin R) 0 units SC .BEDTIME SLIDING SC PRN PRN Reason: Bedtime Correctional Scale Last Admin: 02/07/18 02:16 Dose: 2 units Losartan Potassium (Cozaar) 50 mg PO BID [facility] Magnesium Hydroxide (Milk Of Magnesium) 30 ml PO DAILYPRN PRN PRN Reason: Constipation Metformin HCl (Glucophage) 850 mg PO BID-[facility] Mineral Oil/White Petrolatum (Eucerin Cream) 0 gm TOP BIDPRN PRN PRN Reason: Dry Skin Mineral Oil/White Petrolatum (Eucerin Cream) 0 gm TOP BIDPRN PRN PRN Reason: Dry Skin Miscellaneous Medication (Pharmacy To Dose) 1 each IVPB ONE PRN PRN Reason: Pharmacy to dose Stop: 03/06/18 07:08 Ondansetron HCl (Zofran Odt) 4 mg PO Q6H PRN PRN Reason: Nausea/Vomiting Ondansetron HCl (Zofran) 4 mg IVP Q6H PRN PRN Reason: Nausea/Vomiting Last Admin: 02/07/18 18:24 Dose: 4 mg Polyethylene Glycol (Miralax) 17 gm PO DAILY PRN PRN Reason: Constipation Polyethylene Glycol (Miralax) 17 gm PO DAILY [facility] Saccharomyces Boulardii (Florastor) 250 mg PO DAILY [facility] Last Admin: 02/07/18 08:55 Dose: 250 mg Senna (Senokot) 2 tab PO HSPRN PRN PRN Reason: Constipation Senna/Docusate Sodium (Senokot S) 2 tab PO BID [facility] Sodium Chloride (Flush - Normal Saline) 10 ml IVF Q12HR [facility] Last Admin: 02/07/18 08:58 Dose: 10 ml Sodium Chloride (Flush - Normal Saline) 10 ml IVF PRN PRN PRN Reason: Saline Flush Tamsulosin HCl (Flomax) 0.4 mg PO DAILY [facility] Last Admin: 02/07/18 08:55 Dose: 0.4 mg Tramadol HCl (Ultram) 50 mg PO Q6H PRN PRN Reason: Pain 2-5 Last Admin: 02/07/18 20:16 Dose: 50 mg
[2018-02-07] MEDS: Losartan 25 MG TAB PO SCH (20:27)
[2018-02-07] MEDS: Senokot S 8.6-50 MG TAB PO SCH (20:27)
[2018-02-08] MEDS: Piperacillin/Tazobactam 3.375 GM in Sodium Chloride 0.9% 100 ML IVPB SCH ×2 (02:00→08:19)
[2018-02-08] MEDS: Insulin Regular 300 UNITS/3 ML VIAL SC PRN ×2 (06:33→17:57)
[2018-02-08] MEDS: metFORMIN 850 MG TAB PO SCH ×2 (08:21→17:57)
[2018-02-08] MEDS: Hydrochlorothiazide 25 MG TAB PO SCH (08:24)
[2018-02-08] MEDS: Saccharomyces boulardii 250 MG CAP PO SCH (08:25)
[2018-02-08] MEDS: Losartan 25 MG TAB PO SCH ×2 (08:25→21:12)
[2018-02-08] MEDS: Aspirin 81 mg Enteric Coated Tablet PO SCH (08:26)
[2018-02-08] MEDS: Tamsulosin HCl 0.4 MG CAP PO SCH (08:26)
[2018-02-08] MEDS: Famotidine 20 MG TAB PO SCH ×2 (08:26→21:12)
[2018-02-08] MEDS: Senokot S 8.6-50 MG TAB PO SCH ×2 (08:26→21:12)
[2018-02-08] MEDS: Amlodipine 10 MG TAB PO SCH (08:26)
[2018-02-08] MEDS: Polyethylene Glycol 3350 17 GM Packet PO SCH (08:27)
[2018-02-08] MEDS: NPH, Human Insulin Isophane 300 UNIT/3 ML VIAL SC SCH ×2 (08:28→21:14)
[2018-02-08] MEDS: traMADol HCl 50 MG TAB PO PRN ×2 (08:37→15:13)
[2018-02-08] MEDS: Vancomycin HCl 1 GM in Premix Bag 1 BAG IVPB SCH (08:39)
[2018-02-08] MEDS ORDERED: Acetaminophen 500 MG TAB PO PRN (13:53)
[2018-02-08] MEDS ORDERED: Ibuprofen 600 MG TAB PO PRN (13:53)
--- NOTE | 2018-02-08 14:03 | PDOC.PN ---
- Subjective Encounter Start Date: 02/08/18 Encounter Start Time: 09:30 Patient seen and examined for Cellulitis of the stump. No new complaints. No fever/diarrhea. No overnight events - Objective Resuscitation Status: Resuscitation Status FULL:Full Resuscitation MAR Reviewed: Yes Vital Signs & Weight: Vital Signs (12 hours) Temp Pulse Resp BP BP BP Pulse Ox 02/08/18 11:17 98 F 67 20 169/82 H 95 02/08/18 08:26 63 168/81 H 02/08/18 07:08 97.6 F 63 16 168/81 H 98 02/08/18 04:05 98.1 F 66 16 145/68 H 98 Weight Admit Weight 189 lb 15.84 oz Weight 189 lb 15.91 oz I&O: 02/07/18 02/08/18 02/09/18 06:59 06:59 06:59 Intake Total 2910 1280 Output Total 300 1000 Balance 2610 280 Result Diagrams: 02/07/18 04:16 02/07/18 04:16 Additional Labs: Accuchecks 02/08/18 02/08/18 02/07/18 11:17 05:20 20:28 POC Glucose 146 H 156 H 185 H 02/07/18 02/07/18 16:36 05:37 POC Glucose 272 H 114 H Phys Exam - Physical Examination Constitutional: NAD Respiratory: no wheezing, no rhonchi Cardiovascular: RRR, no rub Gastrointestinal: soft, non-tender, positive bowel sounds Musculoskeletal: no edema dressing over the stump Dx/Plan - Plan DVT proph w/lovenox IMPRESSION/PLAN: 1. Cellulitis of the right below-knee amputation stump site - improving Cont Vancomycin/Zosyn Monitor Vancomycin level 2. Hypertension - not at goal Cont Amlodipine, HCTZ and Losartan Cont PRN Meds 3. Diabetes mellitus, type 2 - better controlled. Cont current dose of NPH with sliding scale/ACHS Cont Metformin 4. Peripheral vascular disease Cont ASA 5. Chronic kidney disease stage 3 Avoid Nephrotoxic agents AM labs 6. Benign prostatic hypertrophy Cont Flomax Review of Systems - Review of Systems Respiratory: negative: Cough, Dry, Shortness of Breath, Hemoptysis, SOB with Excertion, Pleuritic Pain, Sputum, Wheezing Cardiovascular: negative: chest pain, palpitations, orthopnea, paroxysmal nocturnal dyspnea, edema, light headedness, other - Medications/Allergies Allergies/Adverse Reactions: Allergies Allergy/AdvReac Type Severity Reaction Status Date / Time No Known Allergies Allergy Verified 02/03/18 23:08 Medications: Current Medications Acetaminophen (Tylenol) 650 mg PO Q4H PRN PRN Reason: Headache/Fever or Pain Last Admin: 02/06/18 13:04 Dose: 650 mg Amlodipine Besylate (Norvasc) 10 mg PO DAILY [facility] Last Admin: 02/08/18 08:26 Dose: 10 mg Aspirin (Ecotrin) 81 mg PO DAILY [facility] Last Admin: 02/08/18 08:26 Dose: 81 mg Bisacodyl (Dulcolax) 10 mg [place] Q24H PRN PRN Reason: Constipation Calcium Carbonate (Tums) 1,000 mg PO Q4H PRN PRN Reason: Heartburn or Indigestion Dextrose/Water (Dextrose 50%) 25 gm SLOW IVP PRN PRN PRN Reason: Hypoglycemia Enoxaparin Sodium (Lovenox) 40 mg SC 2100 [facility] Last Admin: 02/07/18 20:11 Dose: 40 mg Famotidine (Pepcid) 20 mg PO BID [facility] Last Admin: 02/08/18 08:26 Dose: 20 mg Glucagon (Glucagon) 1 mg IM PRN PRN PRN Reason: Hypoglycemia Hydralazine HCl (Apresoline) 10 mg SLOW IVP Q4H PRN PRN Reason: SBP Greater Than 180 Hydrochlorothiazide (Hydrochlorothiazide) 12.5 mg PO DAILY [facility] Last Admin: 02/08/18 08:24 Dose: 12.5 mg Dextrose/Water (D5w) 1,000 mls @ 0 mls/hr IV .Q0M PRN; As Directed PRN Reason: Hypoglycemia Piperacillin Sod/Tazobactam (Sod 3.375 gm/ Sodium Chloride) 100 mls @ 200 mls/ hr IVPB 0200,0800,1400,2000 [facility] Last Admin: 02/08/18 08:19 Dose: 100 mls Vancomycin HCl 1 gm/ Device 200 mls @ 200 mls/hr IVPB Q12HR [facility] Last Admin: 02/08/18 08:39 Dose: 200 mls Insulin Human NPH (Humulin N) 15 unit SC QAM [facility] Last Admin: 02/08/18 08:28 Dose: 15 unit Insulin Human NPH (Humulin N) 10 unit SC HS [facility] Last Admin: 02/07/18 21:40 Dose: 10 units Insulin Human Regular (Humulin R) 0 units SC .MILD SLIDING SCALE PRN PRN Reason: Mild Correctional Scale Last Admin: 02/08/18 06:33 Dose: 2 unit Insulin Human Regular (Humulin R) 0 units SC .BEDTIME SLIDING SC PRN PRN Reason: Bedtime Correctional Scale Last Admin: 02/07/18 02:16 Dose: 2 units Losartan Potassium (Cozaar) 50 mg PO BID [facility] Last Admin: 02/08/18 08:25 Dose: 50 mg Magnesium Hydroxide (Milk Of Magnesium) 30 ml PO DAILYPRN PRN PRN Reason: Constipation Metformin HCl (Glucophage) 850 mg PO BID[facility] Last Admin: 02/08/18 08:21 Dose: 850 mg Mineral Oil/White Petrolatum (Eucerin Cream) 0 gm TOP BIDPRN PRN PRN Reason: Dry Skin Miscellaneous Medication (Pharmacy To Dose) 1 each IVPB ONE PRN PRN Reason: Pharmacy to dose Stop: 03/06/18 07:08 Ondansetron HCl (Zofran Odt) 4 mg PO Q6H PRN PRN Reason: Nausea/Vomiting Ondansetron HCl (Zofran) 4 mg IVP Q6H PRN PRN Reason: Nausea/Vomiting Last Admin: 02/07/18 18:24 Dose: 4 mg Polyethylene Glycol (Miralax) 17 gm PO DAILY PRN PRN Reason: Constipation Polyethylene Glycol (Miralax) 17 gm PO DAILY [facility] Last Admin: 02/08/18 08:27 Dose: 17 gm Saccharomyces Boulardii (Florastor) 250 mg PO DAILY [facility] Last Admin: 02/08/18 08:25 Dose: 250 mg Senna (Senokot) 2 tab PO HSPRN PRN PRN Reason: Constipation Senna/Docusate Sodium (Senokot S) 2 tab PO BID [facility] Last Admin: 02/08/18 08:26 Dose: 2 tab Sodium Chloride (Flush - Normal Saline) 10 ml IVF Q12HR [facility] Last Admin: 02/08/18 08:40 Dose: 10 ml Sodium Chloride (Flush - Normal Saline) 10 ml IVF PRN PRN PRN Reason: Saline Flush Tamsulosin HCl (Flomax) 0.4 mg PO DAILY [facility] Last Admin: 02/08/18 08:26 Dose: 0.4 mg Tramadol HCl (Ultram) 50 mg PO Q6H PRN PRN Reason: Pain 2-5 Last Admin: 02/08/18 08:37 Dose: 50 mg
--- NOTE | 2018-02-08 18:37 | PRG ---
DATE OF SERVICE: 02/08/2018 SUBJECTIVE: Mr. Danilo Lopez was doing well today. He has undergone on 01/24/2018, below the knee amputation, right. He has been readmitted this hospitalization, because of wound problems. He has s ome redness over his amputation stump. In my absence, Dr. Allen has removed two [place]. Cultures have revealed organisms Pseudomonas and Streptococcus and minimal oral therapy. I have discontinued his vancomycin and Zosyn and started him on oral Augmentin and Cipro. Wound care has been ____ toda y. Examination of the wound reveals that there is mild redness in the stump, but this is minimal jus t around the incision. [place] intact. There is opening in the mid stump with tract few centimeters . At this point, I would recommend wound VAC dressing, outpatient wound VAC care ____ outpatient wou nd care VAC and oral therapy, Augmentin and Cipro p.o. for 2 weeks. I will see him in my office once discharged. The patient can be discharged once the wound VAC care is arranged. I will see him in m y office in about 1 week.
[2018-02-08] MEDS: Enoxaparin Sodium 40 MG/0.4 ML SYRINGE SC SCH (21:11)
[2018-02-08] MEDS: Ciprofloxacin 500 MG TAB PO SCH (21:12)
[2018-02-08] MEDS: Amoxicillin/Potassium Clav 500 MG TAB PO SCH (21:12)
[2018-02-09] MEDS: Ciprofloxacin 500 MG TAB PO SCH ×2 (05:49→21:18)
[2018-02-09] MEDS: traMADol HCl 50 MG TAB PO PRN (05:49)
[2018-02-09 08:02] LABS: #Eosinphils 0.3 thou/uL (0.0-0.7); #Lymphocytes 1.5 thou/uL (1.20-3.40); #Monocytes 0.3 thou/uL (0.11-0.59); #Neutrophils 3.7 thou/uL (1.40-6.50); %Basophils 0.7 % (0.0-1.0); %Eosinophils 4.6 % (0.0-10.0); %Lymphocytes 25.2 % (21.0-51.0); %Monocytes 5.5 % (0.0-10.0); %Neutrophils 64.1 % (42.0-75.0); Hemoglobin 10.5 g/dL (14.0-18.0); Mean Corpuscular Hemoglobin 29.7 pg (27.0-31.0); Mean Corpuscular Volume 90.2 fL (78.0-98.0); Mean Platelet Volume 6.9 fL (7.4-10.4); Platelet Count 271 thou/uL (130-400); RBC Distribution Width 12.5 % (11.5-14.5); Red Blood Cell (RBC) Count 3.55 mill/uL (4.70-6.10); White Blood Cell (WBC) Count 5.8 thou/uL (4.8-10.8)
[2018-02-09 08:25] LABS: Anion Gap 15 mmol/L (10-20); BUN (Urea Nitrogen) 18 mg/dL (8.4-25.7); Calc. Creatinine Clearance 48 mL/min (70-130); Carbon Dioxide 24 mmol/L (23-31); Chloride 103 mmol/L (98-107); Estimated GFR-MDRD 49; Glucose 124 mg/dL (83-110); Potassium 3.8 mmol/L (3.5-5.1); Sodium 138 mmol/L (136-145)
[2018-02-09] MEDS: Polyethylene Glycol 3350 17 GM Packet PO SCH (08:42)
[2018-02-09] MEDS: Losartan 25 MG TAB PO SCH ×2 (08:42→21:19)
[2018-02-09] MEDS: Tamsulosin HCl 0.4 MG CAP PO SCH (08:43)
[2018-02-09] MEDS: Hydrochlorothiazide 25 MG TAB PO SCH (08:43)
[2018-02-09] MEDS: Saccharomyces boulardii 250 MG CAP PO SCH (08:43)
[2018-02-09] MEDS: Famotidine 20 MG TAB PO SCH ×2 (08:43→21:19)
[2018-02-09] MEDS: Senokot S 8.6-50 MG TAB PO SCH ×2 (08:43→23:55)
[2018-02-09] MEDS: Amoxicillin/Potassium Clav 500 MG TAB PO SCH ×2 (08:44→21:21)
[2018-02-09] MEDS: metFORMIN 850 MG TAB PO SCH ×2 (08:44→18:19)
[2018-02-09] MEDS: Aspirin 81 mg Enteric Coated Tablet PO SCH (08:44)
[2018-02-09] MEDS: Amlodipine 10 MG TAB PO SCH (08:44)
[2018-02-09] MEDS: NPH, Human Insulin Isophane 300 UNIT/3 ML VIAL SC SCH ×2 (08:45→21:14)
[2018-02-09] MEDS: Ondansetron ODT 4 MG TAB PO PRN (10:46)
[2018-02-09] MEDS: Insulin Regular 300 UNITS/3 ML VIAL SC PRN (18:19)
--- NOTE | 2018-02-09 21:01 | PDOC.PN ---
- Subjective Encounter Start Date: 02/09/18 Encounter Start Time: 18:00 Patient seen and examined for stump cellulitis. No new complaints. No overnight events - Objective Resuscitation Status: Resuscitation Status FULL:Full Resuscitation MAR Reviewed: Yes Vital Signs & Weight: Vital Signs (12 hours) Temp Pulse Resp BP Pulse Ox 02/09/18 15:48 97.8 F 81 16 163/82 H 97 02/09/18 11:52 97.4 F L 75 14 169/82 H 95 Weight Admit Weight 189 lb 15.84 oz Weight 189 lb 15.91 oz I&O: 02/08/18 02/09/18 02/10/18 06:59 06:59 06:59 Intake Total 1280 2050 950 Output Total 1000 200 Balance 280 2050 750 Result Diagrams: 02/09/18 07:50 02/09/18 07:50 Additional Labs: Accuchecks 02/09/18 02/09/18 02/09/18 20:31 15:33 10:29 POC Glucose 154 H 214 H 163 H 02/09/18 02/08/18 05:48 20:56 POC Glucose 170 H 170 H Phys Exam - Physical Examination Constitutional: NAD Respiratory: no wheezing, no rhonchi Cardiovascular: RRR, no rub Gastrointestinal: soft, non-tender, positive bowel sounds Musculoskeletal: no edema improving erythema over the stump with wound vac + Neurological: moves all 4 limbs Dx/Plan - Plan DVT proph w/lovenox IMPRESSION/PLAN: 1. Cellulitis of the right below-knee amputation stump site - improving Cont Augmentin/Cipro 2. Hypertension - not at goal Cont Amlodipine, HCTZ and Losartan Cont PRN Meds 3. Diabetes mellitus, type 2 - better controlled. Cont current dose of NPH with sliding scale/ACHS Cont Metformin 4. Peripheral vascular disease Cont ASA 5. Chronic kidney disease stage 3 Avoid Nephrotoxic agents AM labs 6. Benign prostatic hypertrophy Cont Flomax Stable for dc. Waiting for l[place] [facility]ernando wound vac Review of Systems - Review of Systems Respiratory: negative: Cough, Dry, Shortness of Breath, Hemoptysis, SOB with Excertion, Pleuritic Pain, Sputum, Wheezing Cardiovascular: negative: chest pain, palpitations, orthopnea, paroxysmal nocturnal dyspnea, edema, light headedness, other - Medications/Allergies Allergies/Adverse Reactions: Allergies Allergy/AdvReac Type Severity Reaction Status Date / Time No Known Allergies Allergy Verified 02/03/18 23:08 Medications: Current Medications Acetaminophen (Tylenol) 650 mg PO Q4H PRN PRN Reason: Headache/Fever or Pain Last Admin: 02/06/18 13:04 Dose: 650 mg Acetaminophen (Tylenol) 1,000 mg PO Q6H PRN PRN Reason: Moderate to Severe Pain (6-10) Last Admin: 02/09/18 09:56 Dose: 1,000 mg Amlodipine Besylate (Norvasc) 10 mg PO DAILY [facility] Last Admin: 02/09/18 08:44 Dose: 10 mg Amoxicillin/Clavulanate Potassium (Augmentin) 500 mg PO Q12HR [facility] Last Admin: 02/09/18 08:44 Dose: 500 mg Aspirin (Ecotrin) 81 mg PO DAILY [facility] Last Admin: 02/09/18 08:44 Dose: 81 mg Bisacodyl (Dulcolax) [address] Q24H PRN PRN Reason: Constipation Calcium Carbonate (Tums) 1,000 mg PO Q4H PRN PRN Reason: Heartburn or Indigestion Ciprofloxacin (Cipro) 500 mg PO 06,1999 [facility] Last Admin: 02/09/18 05:49 Dose: 500 mg Dextrose/Water (Dextrose 50%) 25 gm SLOW IVP PRN PRN PRN Reason: Hypoglycemia Enoxaparin Sodium (Lovenox) 40 mg SC 2100 [facility] Last Admin: 02/08/18 21:11 Dose: 40 mg Famotidine (Pepcid) 20 mg PO BID [facility] Last Admin: 02/09/18 08:43 Dose: 20 mg Glucagon (Glucagon) 1 mg IM PRN PRN PRN Reason: Hypoglycemia Hydralazine HCl (Apresoline) 10 mg SLOW IVP Q4H PRN PRN Reason: SBP Greater Than 180 Hydrochlorothiazide (Hydrochlorothiazide) 12.5 mg PO DAILY [facility] Last Admin: 02/09/18 08:43 Dose: 12.5 mg Dextrose/Water (D5w) 1,000 mls @ 0 mls/hr IV .Q0M PRN; As Directed PRN Reason: Hypoglycemia Ibuprofen (Motrin) 600 mg PO Q6H PRN PRN Reason: Pain Insulin Human NPH (Humulin N) 15 unit SC QAM [facility] Last Admin: 02/09/18 08:45 Dose: 15 unit Insulin Human NPH (Humulin N) 10 unit SC HS [facility] Last Admin: 02/08/18 21:14 Dose: 10 units Insulin Human Regular (Humulin R) 0 units SC .MILD SLIDING SCALE PRN PRN Reason: Mild Correctional Scale Last Admin: 02/09/18 18:19 Dose: 3 unit Insulin Human Regular (Humulin R) 0 units SC .BEDTIME SLIDING SC PRN PRN Reason: Bedtime Correctional Scale Last Admin: 02/07/18 02:16 Dose: 2 units Losartan Potassium (Cozaar) 50 mg PO BID [facility] Last Admin: 02/09/18 08:42 Dose: 50 mg Magnesium Hydroxide (Milk Of Magnesium) 30 ml PO DAILYPRN PRN PRN Reason: Constipation Metformin HCl (Glucophage) 850 mg PO BID-[facility] Last Admin: 02/09/18 18:19 Dose: 850 mg Mineral Oil/White Petrolatum (Eucerin Cream) 0 gm TOP BIDPRN PRN PRN Reason: Dry Skin Ondansetron HCl (Zofran Odt) 4 mg PO Q6H PRN PRN Reason: Nausea/Vomiting Last Admin: 02/09/18 10:46 Dose: 4 mg Ondansetron HCl (Zofran) 4 mg IVP Q6H PRN PRN Reason: Nausea/Vomiting Last Admin: 02/07/18 18:24 Dose: 4 mg Polyethylene Glycol (Miralax) 17 gm PO DAILY PRN PRN Reason: Constipation Polyethylene Glycol (Miralax) 17 gm PO DAILY [facility] Last Admin: 02/09/18 08:42 Dose: 17 gm Saccharomyces Boulardii (Florastor) 250 mg PO DAILY [facility] Last Admin: 02/09/18 08:43 Dose: 250 mg Senna (Senokot) 2 tab PO HSPRN PRN PRN Reason: Constipation Senna/Docusate Sodium (Senokot S) 2 tab PO BID [facility] Last Admin: 02/09/18 08:43 Dose: 2 tab Sodium Chloride (Flush - Normal Saline) 10 ml IVF Q12HR [facility] Last Admin: 02/09/18 08:42 Dose: 10 ml Sodium Chloride (Flush - Normal Saline) 10 ml IVF PRN PRN PRN Reason: Saline Flush Tamsulosin HCl (Flomax) 0.4 mg PO DAILY [facility] Last Admin: 02/09/18 08:43 Dose: 0.4 mg Tramadol HCl (Ultram) 50 mg PO Q6H PRN PRN Reason: Pain 2-5 Last Admin: 02/08/18 08:37 Dose: 50 mg Tramadol HCl (Ultram) 100 mg PO Q6H PRN PRN Reason: Pain Last Admin: 02/09/18 05:49 Dose: 100 mg
[2018-02-09] MEDS: Enoxaparin Sodium 40 MG/0.4 ML SYRINGE SC SCH (21:18)
[2018-02-10] MEDS: Ciprofloxacin 500 MG TAB PO SCH ×2 (05:46→22:18)
[2018-02-10] MEDS: Amoxicillin/Potassium Clav 500 MG TAB PO SCH ×2 (08:16→22:18)
[2018-02-10] MEDS: Hydrochlorothiazide 25 MG TAB PO SCH (08:16)
[2018-02-10] MEDS: Aspirin 81 mg Enteric Coated Tablet PO SCH (08:16)
[2018-02-10] MEDS: metFORMIN 850 MG TAB PO SCH (08:16)
[2018-02-10] MEDS: Famotidine 20 MG TAB PO SCH ×2 (08:16→22:18)
[2018-02-10] MEDS: Tamsulosin HCl 0.4 MG CAP PO SCH (08:17)
[2018-02-10] MEDS: Senokot S 8.6-50 MG TAB PO SCH ×2 (08:18→23:12)
[2018-02-10] MEDS: Losartan 25 MG TAB PO SCH ×2 (08:18→22:19)
[2018-02-10] MEDS: Amlodipine 10 MG TAB PO SCH (08:19)
[2018-02-10] MEDS: Saccharomyces boulardii 250 MG CAP PO SCH (08:19)
[2018-02-10] MEDS: NPH, Human Insulin Isophane 300 UNIT/3 ML VIAL SC SCH ×2 (08:19→22:10)
[2018-02-10] MEDS: Polyethylene Glycol 3350 17 GM Packet PO SCH (08:19)
[2018-02-10] MEDS: Insulin Regular 300 UNITS/3 ML VIAL SC PRN ×2 (11:50→17:15)
--- NOTE | 2018-02-10 12:16 | PDOC.PN ---
- Subjective Encounter Start Date: 02/10/18 Encounter Start Time: 10:30 Patient seen and examined for cellulitis. No new complaints. No overnight events - Objective Resuscitation Status: Resuscitation Status FULL:Full Resuscitation MAR Reviewed: Yes Vital Signs & Weight: Vital Signs (12 hours) Temp Pulse Resp BP BP BP Pulse Ox 02/10/18 11:31 97.7 F 69 18 161/62 H 97 02/10/18 08:19 82 170/78 H 02/10/18 08:00 97.3 F L 82 16 97 02/10/18 07:20 97.3 F L 82 16 173/76 H 97 02/10/18 04:00 98.2 F 84 16 156/82 H 99 Weight Admit Weight 189 lb 15.84 oz Weight 189 lb 15.91 oz I&O: 02/09/18 02/10/18 02/11/18 06:59 06:59 06:59 Intake Total 2049 1430 Output Total 200 Balance 2049 1230 Result Diagrams: 02/09/18 07:50 02/09/18 07:50 Additional Labs: Accuchecks 02/10/18 02/10/18 02/09/18 11:33 05:51 20:31 POC Glucose 180 H 140 H 154 H 02/09/18 15:33 POC Glucose 214 H Phys Exam - Physical Examination Constitutional: NAD Respiratory: no wheezing, no rhonchi Cardiovascular: RRR, no rub Gastrointestinal: soft, non-tender, positive bowel sounds Musculoskeletal: no edema Dx/Plan - Plan DVT proph w/lovenox IMPRESSION/PLAN: 1. Cellulitis of the right below-knee amputation stump site - improving Cont Augmentin/Cipro 2. DANIELLA on CKD 3 Hold HCTZ and Metformin Avoid Nephrotoxic agents AM labs 3. DM2 - better controlled. Cont current dose of NPH with sliding scale/ACHS 4. Peripheral vascular disease Cont ASA 5. Hypertension - not at goal Cont Amlodipine and Losartan, HCTZ on hold Cont PRN Meds 6. Benign prostatic hypertrophy Cont Flomax Review of Systems - Review of Systems Respiratory: negative: Cough, Dry, Shortness of Breath, Hemoptysis, SOB with Excertion, Pleuritic Pain, Sputum, Wheezing Cardiovascular: negative: chest pain, palpitations, orthopnea, paroxysmal nocturnal dyspnea, edema, light headedness, other - Medications/Allergies Allergies/Adverse Reactions: Allergies Allergy/AdvReac Type Severity Reaction Status Date / Time No Known Allergies Allergy Verified 02/03/18 23:08 Medications: Current Medications Acetaminophen (Tylenol) 650 mg PO Q4H PRN PRN Reason: Headache/Fever or Pain Last Admin: 02/06/18 13:04 Dose: 650 mg Acetaminophen (Tylenol) 1,000 mg PO Q6H PRN PRN Reason: Moderate to Severe Pain (6-10) Last Admin: 02/09/18 09:56 Dose: 1,000 mg Amlodipine Besylate (Norvasc) 10 mg PO DAILY [facility] Last Admin: 02/10/18 08:19 Dose: 10 mg Amoxicillin/Clavulanate Potassium (Augmentin) 500 mg PO Q12HR [facility] Last Admin: 02/10/18 08:16 Dose: 500 mg Aspirin (Ecotrin) 81 mg PO DAILY [facility] Last Admin: 02/10/18 08:16 Dose: 81 mg Bisacodyl (Dulcolax) 10 mg [place] Q24H PRN PRN Reason: Constipation Calcium Carbonate (Tums) 1,000 mg PO Q4H PRN PRN Reason: Heartburn or Indigestion Ciprofloxacin (Cipro) 500 mg PO 0600,1999 [facility] Last Admin: 02/10/18 05:46 Dose: 500 mg Dextrose/Water (Dextrose 50%) 25 gm SLOW IVP PRN PRN PRN Reason: Hypoglycemia Enoxaparin Sodium (Lovenox) 30 mg SC 2100 [facility] Famotidine (Pepcid) 20 mg PO BID [facility] Last Admin: 02/10/18 08:16 Dose: 20 mg Glucagon (Glucagon) 1 mg IM PRN PRN PRN Reason: Hypoglycemia Hydralazine HCl (Apresoline) 10 mg SLOW IVP Q4H PRN PRN Reason: SBP Greater Than 180 Dextrose/Water (D5w) 1,000 mls @ 0 mls/hr IV .Q0M PRN; As Directed PRN Reason: Hypoglycemia Ibuprofen (Motrin) 600 mg PO Q6H PRN PRN Reason: Pain Insulin Human NPH (Humulin N) 15 unit SC QAM [facility] Last Admin: 02/10/18 08:19 Dose: 15 unit Insulin Human NPH (Humulin N) 10 unit SC HS [facility] Last Admin: 02/09/18 21:14 Dose: 10 units Insulin Human Regular (Humulin R) 0 units SC .MILD SLIDING SCALE PRN PRN Reason: Mild Correctional Scale Last Admin: 02/10/18 11:50 Dose: 2 unit Insulin Human Regular (Humulin R) 0 units SC .BEDTIME SLIDING SC PRN PRN Reason: Bedtime Correctional Scale Last Admin: 02/07/18 02:16 Dose: 2 units Losartan Potassium (Cozaar) 50 mg PO BID [facility] Last Admin: 02/10/18 08:18 Dose: 50 mg Magnesium Hydroxide (Milk Of Magnesium) 30 ml PO DAILYPRN PRN PRN Reason: Constipation Mineral Oil/White Petrolatum (Eucerin Cream) 0 gm TOP BIDPRN PRN PRN Reason: Dry Skin Ondansetron HCl (Zofran Odt) 4 mg PO Q6H PRN PRN Reason: Nausea/Vomiting Last Admin: 02/09/18 10:46 Dose: 4 mg Ondansetron HCl (Zofran) 4 mg IVP Q6H PRN PRN Reason: Nausea/Vomiting Last Admin: 02/07/18 18:24 Dose: 4 mg Polyethylene Glycol (Miralax) 17 gm PO DAILY PRN PRN Reason: Constipation Polyethylene Glycol (Miralax) 17 gm PO DAILY [facility] Last Admin: 02/10/18 08:19 Dose: 17 gm Saccharomyces Boulardii (Florastor) 250 mg PO DAILY [facility] Last Admin: 02/10/18 08:19 Dose: 250 mg Senna (Senokot) 2 tab PO HSPRN PRN PRN Reason: Constipation Senna/Docusate Sodium (Senokot S) 1 tab PO BID [facility] Sodium Chloride (Flush - Normal Saline) 10 ml IVF Q12HR [facility] Last Admin: 02/10/18 08:20 Dose: Not Given Sodium Chloride (Flush - Normal Saline) 10 ml IVF PRN PRN PRN Reason: Saline Flush Tamsulosin HCl (Flomax) 0.4 mg PO DAILY [facility] Last Admin: 02/10/18 08:17 Dose: 0.4 mg Tramadol HCl (Ultram) 50 mg PO Q6H PRN PRN Reason: Pain 2-5 Last Admin: 02/08/18 08:37 Dose: 50 mg Tramadol HCl (Ultram) 100 mg PO Q6H PRN PRN Reason: Pain Last Admin: 02/09/18 05:49 Dose: 100 mg
[2018-02-10] MEDS: traMADol HCl 50 MG TAB PO PRN (17:19)
[2018-02-10] MEDS: Enoxaparin Sodium 30 MG/0.3 ML SYRINGE SC SCH (22:18)
[2018-02-11 05:26] LABS: Hemoglobin 10.9 g/dL (14.0-18.0); Platelet Count 241 thou/uL (130-400)
[2018-02-11 05:44] LABS: Anion Gap 12 mmol/L (10-20); BUN (Urea Nitrogen) 20 mg/dL (8.4-25.7); Calc. Creatinine Clearance 49 mL/min (70-130); Calcium 9.5 mg/dL (7.8-10.44); Carbon Dioxide 26 mmol/L (23-31); Chloride 104 mmol/L (98-107); Estimated GFR-MDRD 50; Glucose 123 mg/dL (83-110); Potassium 3.7 mmol/L (3.5-5.1); Sodium 138 mmol/L (136-145)
[2018-02-11] MEDS: Ciprofloxacin 500 MG TAB PO SCH ×2 (05:59→20:55)
[2018-02-11] MEDS: Aspirin 81 mg Enteric Coated Tablet PO SCH (09:31)
[2018-02-11] MEDS: Tamsulosin HCl 0.4 MG CAP PO SCH (09:31)
[2018-02-11] MEDS: Senokot S 8.6-50 MG TAB PO SCH ×2 (09:31→20:54)
[2018-02-11] MEDS: Amlodipine 10 MG TAB PO SCH (09:31)
[2018-02-11] MEDS: Saccharomyces boulardii 250 MG CAP PO SCH (09:31)
[2018-02-11] MEDS: Amoxicillin/Potassium Clav 500 MG TAB PO SCH ×2 (09:31→22:11)
[2018-02-11] MEDS: Polyethylene Glycol 3350 17 GM Packet PO SCH (09:32)
[2018-02-11] MEDS: NPH, Human Insulin Isophane 300 UNIT/3 ML VIAL SC SCH ×2 (09:32→20:55)
[2018-02-11] MEDS: Famotidine 20 MG TAB PO SCH (09:32)
[2018-02-11] MEDS: Losartan 25 MG TAB PO SCH ×2 (09:32→20:54)
[2018-02-11] MEDS: traMADol HCl 50 MG TAB PO PRN (09:44)
[2018-02-11] MEDS: Ondansetron ODT 4 MG TAB PO PRN (11:23)
--- NOTE | 2018-02-11 15:01 | PDOC.PN ---
- Subjective Encounter Start Date: 02/11/18 Encounter Start Time: 10:00 Patient seen and examined for stump cellulitis. No new complaints. No overnight events - Objective Resuscitation Status: Resuscitation Status FULL:Full Resuscitation MAR Reviewed: Yes Vital Signs & Weight: Vital Signs (12 hours) Temp Pulse Resp BP BP Pulse Ox 02/11/18 09:31 74 169/77 H 02/11/18 08:00 97.9 F 74 18 96 02/11/18 07:43 97.9 F 74 18 169/77 H 96 02/11/18 04:00 98 F 77 16 165/74 H 98 Weight Admit Weight 189 lb 15.84 oz Weight 189 lb 15.91 oz I&O: 02/10/18 02/11/18 02/12/18 06:59 06:59 06:59 Intake Total 1430 1190 Output Total 200 650 Balance 1230 540 Result Diagrams: 02/11/18 05:08 02/11/18 05:08 Additional Labs: Accuchecks 02/11/18 02/10/18 02/10/18 11:42 21:47 15:27 POC Glucose 152 H 282 H 155 H Phys Exam - Physical Examination Constitutional: NAD Respiratory: no wheezing, no rhonchi Cardiovascular: RRR, no rub Gastrointestinal: soft, non-tender, positive bowel sounds Musculoskeletal: no edema wound vac + Dx/Plan - Plan DVT proph w/lovenox IMPRESSION/PLAN: 1. Cellulitis of the right below-knee amputation stump site - improving Cont Augmentin/Ciprofloxacin 2. DANIELLA on CKD 3 Hold HCTZ and Metformin Avoid Nephrotoxic agents AM labs 3. DM2 - better controlled. Cont current dose of NPH with sliding scale/ACHS 4. Peripheral vascular disease Cont ASA 5. Hypertension - not at goal Cont Amlodipine and Losartan, HCTZ on hold Cont PRN Meds 6. Benign prostatic hypertrophy Cont Flomax Stable for discharge. Awaiting [facility] wound vac setup. Review of Systems - Review of Systems Respiratory: negative: Cough, Dry, Shortness of Breath, Hemoptysis, SOB with Excertion, Pleuritic Pain, Sputum, Wheezing Cardiovascular: negative: chest pain, palpitations, orthopnea, paroxysmal nocturnal dyspnea, edema, light headedness, other - Medications/Allergies Allergies/Adverse Reactions: Allergies Allergy/AdvReac Type Severity Reaction Status Date / Time No Known Allergies Allergy Verified 02/03/18 23:08 Medications: Current Medications Acetaminophen (Tylenol) 650 mg PO Q4H PRN PRN Reason: Headache/Fever or Pain Last Admin: 02/06/18 13:04 Dose: 650 mg Acetaminophen (Tylenol) 1,000 mg PO Q6H PRN PRN Reason: Moderate to Severe Pain (6-10) Last Admin: 02/09/18 09:56 Dose: 1,000 mg Amlodipine Besylate (Norvasc) 10 mg PO DAILY [facility] Last Admin: 02/11/18 09:31 Dose: 10 mg Amoxicillin/Clavulanate Potassium (Augmentin) 500 mg PO Q12HR [facility] Last Admin: 02/11/18 09:31 Dose: 500 mg Aspirin (Ecotrin) 81 mg PO DAILY [facility] Last Admin: 02/11/18 09:31 Dose: 81 mg Bisacodyl (Dulcolax) 10 mg [place] Q24H PRN PRN Reason: Constipation Calcium Carbonate (Tums) 1,000 mg PO Q4H PRN PRN Reason: Heartburn or Indigestion Ciprofloxacin (Cipro) 500 mg PO 0600,1999 [facility] Last Admin: 02/11/18 05:59 Dose: 500 mg Dextrose/Water (Dextrose 50%) 25 gm SLOW IVP PRN PRN PRN Reason: Hypoglycemia Enoxaparin Sodium (Lovenox) 30 mg SC 2100 [facility] Last Admin: 02/10/18 22:18 Dose: 30 mg Famotidine (Pepcid) 20 mg PO DAILY [facility] Glucagon (Glucagon) 1 mg IM PRN PRN PRN Reason: Hypoglycemia Hydralazine HCl (Apresoline) 10 mg SLOW IVP Q4H PRN PRN Reason: SBP Greater Than 180 Dextrose/Water (D5w) 1,000 mls @ 0 mls/hr IV .Q0M PRN; As Directed PRN Reason: Hypoglycemia Ibuprofen (Motrin) 600 mg PO Q6H PRN PRN Reason: Pain Insulin Human NPH (Humulin N) 15 unit SC QAM [facility] Last Admin: 02/11/18 09:32 Dose: 15 unit Insulin Human NPH (Humulin N) 10 unit SC HS [facility] Last Admin: 02/10/18 22:10 Dose: 10 units Insulin Human Regular (Humulin R) 0 units SC .MILD SLIDING SCALE PRN PRN Reason: Mild Correctional Scale Last Admin: 02/10/18 17:15 Dose: 2 unit Insulin Human Regular (Humulin R) 0 units SC .BEDTIME SLIDING SC PRN PRN Reason: Bedtime Correctional Scale Last Admin: 02/07/18 02:16 Dose: 2 units Losartan Potassium (Cozaar) 50 mg PO BID [facility] Last Admin: 02/11/18 09:32 Dose: 50 mg Magnesium Hydroxide (Milk Of Magnesium) 30 ml PO DAILYPRN PRN PRN Reason: Constipation Mineral Oil/White Petrolatum (Eucerin Cream) 0 gm TOP BIDPRN PRN PRN Reason: Dry Skin Ondansetron HCl (Zofran Odt) 4 mg PO Q6H PRN PRN Reason: Nausea/Vomiting Last Admin: 02/11/18 11:23 Dose: 4 mg Ondansetron HCl (Zofran) 4 mg IVP Q6H PRN PRN Reason: Nausea/Vomiting Last Admin: 02/07/18 18:24 Dose: 4 mg Polyethylene Glycol (Miralax) 17 gm PO DAILY PRN PRN Reason: Constipation Polyethylene Glycol (Miralax) 17 gm PO DAILY [facility] Last Admin: 02/11/18 09:32 Dose: 17 gm Saccharomyces Boulardii (Florastor) 250 mg PO DAILY [facility] Last Admin: 02/11/18 09:31 Dose: 250 mg Senna (Senokot) 2 tab PO HSPRN PRN PRN Reason: Constipation Senna/Docusate Sodium (Senokot S) 1 tab PO BID [facility] Last Admin: 02/11/18 09:31 Dose: 1 tab Sodium Chloride (Flush - Normal Saline) 10 ml IVF Q12HR [facility] Last Admin: 02/11/18 09:46 Dose: Not Given Sodium Chloride (Flush - Normal Saline) 10 ml IVF PRN PRN PRN Reason: Saline Flush Tamsulosin HCl (Flomax) 0.4 mg PO DAILY [facility] Last Admin: 02/11/18 09:31 Dose: 0.4 mg Tramadol HCl (Ultram) 50 mg PO Q6H PRN PRN Reason: Pain 2-5 Last Admin: 02/11/18 09:44 Dose: 50 mg Tramadol HCl (Ultram) 100 mg PO Q6H PRN PRN Reason: Pain Last Admin: 02/09/18 05:49 Dose: 100 mg
[2018-02-11] MEDS: Insulin Regular 300 UNITS/3 ML VIAL SC PRN (16:52)
[2018-02-11] MEDS: Enoxaparin Sodium 30 MG/0.3 ML SYRINGE SC SCH (20:55)
[2018-02-12] MEDS: Ciprofloxacin 500 MG TAB PO SCH ×2 (04:51→21:25)
[2018-02-12] MEDS: traMADol HCl 50 MG TAB PO PRN ×2 (04:54→12:12)
[2018-02-12 05:59] LABS: Anion Gap 15 mmol/L (10-20); BUN (Urea Nitrogen) 29 mg/dL (8.4-25.7); Calc. Creatinine Clearance 44 mL/min (70-130); Calcium 9.3 mg/dL (7.8-10.44); Carbon Dioxide 24 mmol/L (23-31); Chloride 101 mmol/L (98-107); Estimated GFR-MDRD 43; Glucose 160 mg/dL (83-110); Potassium 3.7 mmol/L (3.5-5.1); Sodium 136 mmol/L (136-145)
[2018-02-12] MEDS: Insulin Regular 300 UNITS/3 ML VIAL SC PRN ×4 (06:25→21:25)
[2018-02-12] MEDS: Aspirin 81 mg Enteric Coated Tablet PO SCH (09:32)
[2018-02-12] MEDS: Amoxicillin/Potassium Clav 500 MG TAB PO SCH ×2 (09:32→21:25)
[2018-02-12] MEDS: Senokot S 8.6-50 MG TAB PO SCH ×2 (09:33→21:25)
[2018-02-12] MEDS: Tamsulosin HCl 0.4 MG CAP PO SCH (09:33)
[2018-02-12] MEDS: Saccharomyces boulardii 250 MG CAP PO SCH (09:33)
[2018-02-12] MEDS: Amlodipine 10 MG TAB PO SCH (09:33)
[2018-02-12] MEDS: Famotidine 20 MG TAB PO SCH (09:33)
[2018-02-12] MEDS: hydrALAZINE 25 MG TAB PO SCH ×3 (09:33→21:25)
[2018-02-12] MEDS: NPH, Human Insulin Isophane 300 UNIT/3 ML VIAL SC SCH ×2 (09:34→21:26)
[2018-02-12] MEDS: Polyethylene Glycol 3350 17 GM Packet PO SCH (09:34)
--- NOTE | 2018-02-12 20:57 | PDOC.PN ---
- Subjective Encounter Start Date: 02/12/18 Encounter Start Time: 10:00 Patient seen and examined for cellulitis of stump. No new complaints. No overnight events - Objective Resuscitation Status: Resuscitation Status FULL:Full Resuscitation MAR Reviewed: Yes Vital Signs & Weight: Vital Signs (12 hours) Temp Pulse Resp BP Pulse Ox 02/12/18 16:00 97.6 F 68 12 148/74 H 97 02/12/18 15:20 69 02/12/18 11:20 97.8 F 69 16 163/70 H 96 02/12/18 09:33 74 Weight Admit Weight 189 lb 15.84 oz Weight 189 lb 15.91 oz I&O: 02/11/18 02/12/18 02/13/18 06:59 06:59 06:59 Intake Total 1190 1910 Output Total 650 750 Balance 540 1160 Result Diagrams: 02/11/18 05:08 02/12/18 04:45 Additional Labs: Accuchecks 02/12/18 02/12/18 02/12/18 16:01 11:25 05:47 POC Glucose 204 H 249 H 160 H Phys Exam - Physical Examination Constitutional: NAD Respiratory: no wheezing, no rhonchi Cardiovascular: RRR, no rub Gastrointestinal: soft, non-tender, positive bowel sounds Musculoskeletal: no edema Wound vac + Neurological: non-focal, moves all 4 limbs Dx/Plan - Plan DVT proph w/lovenox IMPRESSION/PLAN: 1. Cellulitis of the right below-knee amputation stump site - improving Cont PO Augmentin/Ciprofloxacin Cont Wound Vac 2. DANIELLA on CKD 3 Hold HCTZ and Metformin Avoid Nephrotoxic agents AM labs 3. DM2 Cont current dose of NPH with sliding scale/ACHS 4. Peripheral vascular disease Cont ASA 5. Hypertension - not at goal Cont Amlodipine. Losartan and HCTZ on hold Cont PRN Meds 6. Benign prostatic hypertrophy Cont Flomax Stable for discharge. Awaiting [facility] wound vac setup. Review of Systems - Review of Systems Respiratory: negative: Cough, Dry, Shortness of Breath, Hemoptysis, SOB with Excertion, Pleuritic Pain, Sputum, Wheezing Cardiovascular: negative: chest pain, palpitations, orthopnea, paroxysmal nocturnal dyspnea, edema, light headedness, other - Medications/Allergies Allergies/Adverse Reactions: Allergies Allergy/AdvReac Type Severity Reaction Status Date / Time No Known Allergies Allergy Verified 02/03/18 23:08 Medications: Current Medications Acetaminophen (Tylenol) 650 mg PO Q4H PRN PRN Reason: Headache/Fever or Pain Last Admin: 02/06/18 13:04 Dose: 650 mg Acetaminophen (Tylenol) 1,000 mg PO Q6H PRN PRN Reason: Moderate to Severe Pain (6-10) Last Admin: 02/09/18 09:56 Dose: 1,000 mg Amlodipine Besylate (Norvasc) 10 mg PO DAILY [facility] Last Admin: 02/12/18 09:33 Dose: 10 mg Amoxicillin/Clavulanate Potassium (Augmentin) 500 mg PO Q12HR [facility] Last Admin: 02/12/18 09:32 Dose: 500 mg Aspirin (Ecotrin) 81 mg PO DAILY [facility] Last Admin: 02/12/18 09:32 Dose: 81 mg Bisacodyl (Dulcolax) 10 mg [place] Q24H PRN PRN Reason: Constipation Calcium Carbonate (Tums) 1,000 mg PO Q4H PRN PRN Reason: Heartburn or Indigestion Ciprofloxacin (Cipro) 500 mg PO 599,1999 [facility] Last Admin: 02/12/18 04:51 Dose: 500 mg Dextrose/Water (Dextrose 50%) 25 gm SLOW IVP PRN PRN PRN Reason: Hypoglycemia Enoxaparin Sodium (Lovenox) 30 mg SC 2100 [facility] Last Admin: 02/11/18 20:55 Dose: 30 mg Famotidine (Pepcid) 20 mg PO DAILY [facility] Last Admin: 02/12/18 09:33 Dose: 20 mg Glucagon (Glucagon) 1 mg IM PRN PRN PRN Reason: Hypoglycemia Hydralazine HCl (Apresoline) 10 mg SLOW IVP Q4H PRN PRN Reason: SBP Greater Than 180 Hydralazine HCl (Apresoline) 25 mg PO TID [facility] Last Admin: 02/12/18 15:20 Dose: 25 mg Dextrose/Water (D5w) 1,000 mls @ 0 mls/hr IV .Q0M PRN; As Directed PRN Reason: Hypoglycemia Ibuprofen (Motrin) 600 mg PO Q6H PRN PRN Reason: Pain Insulin Human NPH (Humulin N) 15 unit SC QAM [facility] Last Admin: 02/12/18 09:34 Dose: 15 unit Insulin Human NPH (Humulin N) 10 unit SC HS [facility] Last Admin: 02/11/18 20:55 Dose: 10 units Insulin Human Regular (Humulin R) 0 units SC .MILD SLIDING SCALE PRN PRN Reason: Mild Correctional Scale Last Admin: 02/12/18 18:04 Dose: 3 unit Insulin Human Regular (Humulin R) 0 units SC .BEDTIME SLIDING SC PRN PRN Reason: Bedtime Correctional Scale Last Admin: 02/07/18 02:16 Dose: 2 units Magnesium Hydroxide (Milk Of Magnesium) 30 ml PO DAILYPRN PRN PRN Reason: Constipation Mineral Oil/White Petrolatum (Eucerin Cream) 0 gm TOP BIDPRN PRN PRN Reason: Dry Skin Ondansetron HCl (Zofran Odt) 4 mg PO Q6H PRN PRN Reason: Nausea/Vomiting Last Admin: 02/11/18 11:23 Dose: 4 mg Ondansetron HCl (Zofran) 4 mg IVP Q6H PRN PRN Reason: Nausea/Vomiting Last Admin: 02/07/18 18:24 Dose: 4 mg Polyethylene Glycol (Miralax) 17 gm PO DAILY PRN PRN Reason: Constipation Polyethylene Glycol (Miralax) 17 gm PO DAILY [facility] Last Admin: 02/12/18 09:34 Dose: 17 gm Saccharomyces Boulardii (Florastor) 250 mg PO DAILY [facility] Last Admin: 02/12/18 09:33 Dose: 250 mg Senna (Senokot) 2 tab PO HSPRN PRN PRN Reason: Constipation Senna/Docusate Sodium (Senokot S) 1 tab PO BID [facility] Last Admin: 02/12/18 09:33 Dose: 1 tab Sodium Chloride (Flush - Normal Saline) 10 ml IVF Q12HR [facility] Last Admin: 02/12/18 09:42 Dose: Not Given Sodium Chloride (Flush - Normal Saline) 10 ml IVF PRN PRN PRN Reason: Saline Flush Tamsulosin HCl (Flomax) 0.4 mg PO DAILY [facility] Last Admin: 02/12/18 09:33 Dose: 0.4 mg Tramadol HCl (Ultram) 50 mg PO Q6H PRN PRN Reason: Pain 2-5 Last Admin: 02/12/18 04:54 Dose: 50 mg Tramadol HCl (Ultram) 100 mg PO Q6H PRN PRN Reason: Pain Last Admin: 02/12/18 12:12 Dose: 100 mg
[2018-02-12] MEDS: Enoxaparin Sodium 30 MG/0.3 ML SYRINGE SC SCH (21:25)
[2018-02-13] MEDS: Ciprofloxacin 500 MG TAB PO SCH ×2 (05:57→20:49)
[2018-02-13 06:10] LABS: Anion Gap 15 mmol/L (10-20); BUN (Urea Nitrogen) 29 mg/dL (8.4-25.7); Calc. Creatinine Clearance 47 mL/min (70-130); Carbon Dioxide 23 mmol/L (23-31); Chloride 101 mmol/L (98-107); Estimated GFR-MDRD 47; Glucose 136 mg/dL (83-110); Potassium 3.5 mmol/L (3.5-5.1); Sodium 135 mmol/L (136-145)
[2018-02-13] MEDS: Amlodipine 10 MG TAB PO SCH (08:31)
[2018-02-13] MEDS: Saccharomyces boulardii 250 MG CAP PO SCH (08:31)
[2018-02-13] MEDS: Senokot S 8.6-50 MG TAB PO SCH ×2 (08:31→20:50)
[2018-02-13] MEDS: Amoxicillin/Potassium Clav 500 MG TAB PO SCH ×2 (08:31→20:55)
[2018-02-13] MEDS: hydrALAZINE 25 MG TAB PO SCH ×3 (08:31→20:50)
[2018-02-13] MEDS: Polyethylene Glycol 3350 17 GM Packet PO SCH (08:32)
[2018-02-13] MEDS: Aspirin 81 mg Enteric Coated Tablet PO SCH (08:32)
[2018-02-13] MEDS: Tamsulosin HCl 0.4 MG CAP PO SCH (08:32)
[2018-02-13] MEDS: NPH, Human Insulin Isophane 300 UNIT/3 ML VIAL SC SCH ×2 (08:32→20:47)
[2018-02-13] MEDS: Famotidine 20 MG TAB PO SCH (08:32)
[2018-02-13] MEDS: Insulin Regular 300 UNITS/3 ML VIAL SC PRN ×3 (10:58→20:44)
--- NOTE | 2018-02-13 12:45 | PRG ---
DATE OF SERVICE: 02/13/2018 SUBJECTIVE: The patient is awaiting final decision how he is going to get his antibiotics for his c ellulitis, whether it is going to be through assisted unit or some kind of outpatient form of the treatment. OBJECTIVE: VITAL SIGNS: Blood pressure is 176/77, pulse is 74, respiratory rate is 18, O2 saturation is 97% on room air. HEENT: His head is atraumatic, normocephalic. Eyes are PERRLA, sclerae is nonicteric. Oral mucosa is moist. NECK: Supple. No lymphadenopathy. LUNGS: Clear. HEART: S1, S2 normal, no S3, no S4, no murmur. ABDOMEN: Soft, nontender. Wound VAC is in place. NEUROLOGIC: He is alert and oriented x4. There is not any focal deficits. LABORATORY: None today except for glycemia which is ranging from 133 to 249. IMPRESSION: 1. For now we will continue his Augmentin and ciprofloxacin. I am going to go up on his NPH dose si nce his diabetes is not controlled. 2. Diabetes mellitus. As I said above, I am going to start high doses of insulin NPH. 3. Hypertension. We will start him on hydralazine since his creatinine is still elevated, we could not use ARB or ALEXANDRO inhibitor. 4. Benign prostatic hypertrophy on Flomax. 5. Peripheral vascular disease. PLAN: Continue aspirin. So, he was supposed to be discharged today after the final decision is made where he is going to go since he is going to be responsible for some payment. Either way, I am rox g to hold his discharge, since his glycemia is not well controlled. His blood pressure is not well c ontrolled and as I mentioned above, start him on adjusted doses of medicine.
--- NOTE | 2018-02-13 15:20 | PRG ---
DATE OF SERVICE: 02/13/2018 Danilo Lopez is doing well today. He underwent amputation of his right leg, 01/24/2018. Patient is ready for discharge once the home VAC is approved. He can follow up in my office in 2-3 weeks.
[2018-02-13] MEDS: traMADol HCl 50 MG TAB PO PRN (20:54)
[2018-02-13] MEDS: Enoxaparin Sodium 30 MG/0.3 ML SYRINGE SC SCH (22:29)
[2018-02-14] MEDS: Ciprofloxacin 500 MG TAB PO SCH ×2 (05:31→20:23)
[2018-02-14] MEDS: Saccharomyces boulardii 250 MG CAP PO SCH (08:55)
[2018-02-14] MEDS: Tamsulosin HCl 0.4 MG CAP PO SCH (08:55)
[2018-02-14] MEDS: Amoxicillin/Potassium Clav 500 MG TAB PO SCH ×2 (08:55→20:24)
[2018-02-14] MEDS: Amlodipine 10 MG TAB PO SCH (08:55)
[2018-02-14] MEDS: Aspirin 81 mg Enteric Coated Tablet PO SCH (08:55)
[2018-02-14] MEDS: Famotidine 20 MG TAB PO SCH (08:55)
[2018-02-14] MEDS: hydrALAZINE 25 MG TAB PO SCH ×3 (08:56→20:23)
[2018-02-14] MEDS: Polyethylene Glycol 3350 17 GM Packet PO SCH (08:57)
[2018-02-14] MEDS: Senokot S 8.6-50 MG TAB PO SCH ×2 (08:57→20:23)
[2018-02-14] MEDS: NPH, Human Insulin Isophane 300 UNIT/3 ML VIAL SC SCH ×2 (10:26→20:24)
[2018-02-14] MEDS: Insulin Regular 300 UNITS/3 ML VIAL SC PRN ×2 (12:01→17:16)
[2018-02-14] MEDS: traMADol HCl 50 MG TAB PO PRN (13:31)
--- NOTE | 2018-02-14 14:49 | PDOC.EVN ---
Event Note - Event Note Event Note: d/c dictation #[id number] discharge visit conducted using [employer]
--- NOTE | 2018-02-14 15:11 | DIS ---
DISCHARGE DIAGNOSES: 1. 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 2. Hypertension. 3. Acute kidney injury. 4. Poorly controlled insulin-dependent type 2 diabetes. 5. Benign prostatic hypertrophy. 6. Peripheral vascular disease. BRIEF SUMMARY OF HOSPITAL COURSE: An 82-year-old male with a known history of poorly controlled insu flori-dependent diabetes who presented with a chief complaint of cellulitis of the right lower extremit y. Please see the original history and physical for full details surrounding admission. Also, on ad mission, the patient was incidentally found to have some acute kidney injury with a known baseline [facility] kidney disease stage 3. In regards to the patient's right lower extremity cellulitis, he has been seen by Surgery and undergo ne a right BKA. The surgical site infection is improving at the time of discharge. The patient is b eing discharged home with a wound VAC. He is also being discharged with a 2-week course of oral Augm entin and ciprofloxacin. He will follow up closely with Wound Care on an outpatient basis along with outpatient surgical followup. In regards to the patient's acute kidney injury. He was discontinued from his home losartan and home hydrochlorothiazide secondary to elevated BUN and creatinine. The patient's home metformin was also held. Hydralazine has been initiated instead to avoid nephrotoxic medications whenever possible. A t the time of discharge, the patient has a marginally improved BUN and creatinine at 29 and 1.43. Th e remainder of the patient's chronic medical issues were stable during this hospitalization. CONSULTATIONS: Surgery. MEDICATION RECONCILIATION: Please see the EMR for full details. Of note, the patient will continue on his home regimen, specifically his home insulin, tramadol, aspirin, tamsulosin, amlodipine. Addit ionally, the patient has been given prescriptions for hydralazine and asked to discontinue his hydroc hlorothiazide and losartan due to acute kidney injury. The patient has been asked to discontinue his metformin secondary to acute kidney injury as well and continue with insulin administration. The pa tient has been given prescriptions for 2 week course of ciprofloxacin and Augmentin as well. PATIENT'S CONDITION AT DISCHARGE: At the time of discharge, the patient is hemodynamically stable. HEENT: Normocephalic, atraumatic, slightly dry mucous membranes, equal ocular motions are intact. CARDIOVASCULAR: S1, S2. Pulses 2+ bilateral upper extremities; left lower extremity, no pitting ped al edema. RESPIRATORY: Reasonable air movement. Incentive spirometry is only at about 750 mL on inspiration. No wheezes, rales or rhonchi, grossly clear to auscultation. No conversational dyspnea. ABDOMEN: Positive bowel sounds, soft, nontender to palpation. MUSCULOSKELETAL: Moving all 4 extremities grossly. Dressing was not removed from his right BKA stum p site. DISCHARGE AND FOLLOWUP INSTRUCTIONS: The patient is asked to follow up closely with outpatient PCP, wound care, and General Surgery. The patient's at bedside is able to complete teach back. Thank you for asking me to care for the patient. Greater than 30 minutes were spent coordinating discharge for the patient.
[2018-02-14] MEDS: Enoxaparin Sodium 30 MG/0.3 ML SYRINGE SC SCH (20:24)
[2018-02-15] MEDS: Ciprofloxacin 500 MG TAB PO SCH (05:45)
[2018-02-15 07:53] VITALS: BP 164/75; TEMP 98.2
[2018-02-15] MEDS: Amoxicillin/Potassium Clav 500 MG TAB PO SCH (09:15)
[2018-02-15] MEDS: Aspirin 81 mg Enteric Coated Tablet PO SCH (09:16)
[2018-02-15] MEDS: hydrALAZINE 25 MG TAB PO SCH (09:16)
[2018-02-15] MEDS: Tamsulosin HCl 0.4 MG CAP PO SCH (09:16)
[2018-02-15] MEDS: Saccharomyces boulardii 250 MG CAP PO SCH (09:16)
[2018-02-15] MEDS: Famotidine 20 MG TAB PO SCH (09:16)
[2018-02-15] MEDS: Senokot S 8.6-50 MG TAB PO SCH (09:16)
[2018-02-15] MEDS: NPH, Human Insulin Isophane 300 UNIT/3 ML VIAL SC SCH (09:16)
[2018-02-15] MEDS: Amlodipine 10 MG TAB PO SCH (09:23)
[2018-02-15] MEDS: Polyethylene Glycol 3350 17 GM Packet PO SCH (09:28)
== END 2018-02-15 11:47 | disposition home or self-care (01) | DRG 863 ==
LOC: ERS 18:18 → SJJU 23:00
PROVIDERS: ADMIT Internal Medicine; ATTEND Internal Medicine
PROC: 3E0234Z Introduction of Serum, Toxoid and Vaccine into Muscle, Percutaneous Approach (ICD-10-PCS; principal; 2018-02-04)
DX: T81.4XXA Infection following a procedure, initial encounter (principal); T87.43 Infection of amputation stump, right lower extremity; L03.115 Cellulitis of right lower limb; N17.9 Acute kidney failure, unspecified; E87.2 Acidosis; E87.1 Hypo-osmolality and hyponatremia; I12.9 Hypertensive chronic kidney disease with stage 1 through stage 4 chronic kidney disease, or unspecified chronic kidney disease; E11.51 Type 2 diabetes mellitus with diabetic peripheral angiopathy without gangrene; E11.22 Type 2 diabetes mellitus with diabetic chronic kidney disease; N18.3 Chronic kidney disease, stage 3 (moderate); Z79.4 Long term (current) use of insulin; Z89.511 Acquired absence of right leg below knee; D63.1 Anemia in chronic kidney disease; N40.0 Benign prostatic hyperplasia without lower urinary tract symptoms; Z79.82 Long term (current) use of aspirin; B96.5 Pseudomonas (aeruginosa) (mallei) (pseudomallei) as the cause of diseases classified elsewhere; B95.5 Unspecified streptococcus as the cause of diseases classified elsewhere; Z23 Encounter for immunization
CPT/HCPCS: 36415; 36416; 80048; 80053; 80202; 83605; 83735; 85014; 85018; 85025; 85049; 87040; 87070; 87077; 87186; 87205; 90471; 90670; 96365; 96367; 96375; A4216; G0009; G8978-GP-CL; G8979-GP-CJ; G8987-GO-CL; G8988-GO-CJ; J1650; J1815; J2270; J2405; J2543; J3370; J7050; Q0162

== ENCOUNTER 2018-03-05 11:36 | Outpatient (CLI) | payer MEDICAID ==
--- NOTE | 2018-03-05 12:09 | PRG ---
DATE OF SERVICE: 03/05/2018 HISTORY: Mr. Danilo Lopez is a very pleasant 82-year-old gentleman who presents to the Wound Center for evaluation of a nonhealing surgical wound of his right below the knee amputation stump. The pat ient underwent right below the knee amputation on 01/24/[address] Chris Fraga. The patient was readmitted to [facility] for a blister of his right below the knee amputation stump associated with erythema of the stump extending almost to the knee. During the patient's [facility] stay, Mr. Lopez was seen by General Surgery. One region of the surgical wound from right belo w the knee amputation was opened by Dr. Ashlie Allen. During the patient's hospital stay, negative pressure therapy was initiated, and upon discharge from [facility], the fritz nt was referred to the Wound Center for assistance with dressing changes of the wound VAC. The fritz nt was discharged to home on on ciprofloxacin and Augmentin each for 2 weeks. PHYSICAL EXAMINATION: VITAL SIGNS: Temperature 97.6, pulse 73, respirations 20, blood pressure 153/69, Accu-Chek 237. EXTREMITIES: A nonhealing surgical wound of the right below the knee amputation stump is present whi ch measures approximately 0.6 x 0.3 cm. The dimensions of the wound at the time of the patient's vis it on 02/19/2018 were approximately 1.0 x 0.3 cm. The depth of the wound is approximately 1.0 cm. T he depth of the wound at the time of the patient's visit on 02/19/2018 was approximately 2.4 cm. Gra nulation tissue is present within the wound margins. Nonviable tissue present within the wound braulio ns was debrided with an excisional full-thickness debridement. No purulent drainage is associated wi th the wound. No cellulitis of the right below the knee amputation stump is appreciated. No macerat ion of the skin of the periwound is noted. No significant edema of the right below the knee amputati on stump is present on exam today. ASSESSMENT AND PLAN: 1. Nonhealing surgical wound of right below the knee amputation stump. The patient underwent right below the knee amputation on 01/24/[address] Chris Fraga. Negative pressure therapy will be con tinued with dressing changes of the wound VAC 2 times per week here in the Wound Center. I will see Mr. Lopez again in two weeks. 2. Diabetes mellitus. The patient's Accu-Chek in clinic today is 237. The patient has been told th at for optimal wound healing, his blood glucoses should remain below 150. 3. Hypertension. 4. Peripheral vascular disease.
== END 2018-03-05 11:37 | disposition home or self-care (01) ==
LOC: WCC 11:36
PROVIDERS: ATTEND Family Medicine
DX: T81.89XD Other complications of procedures, not elsewhere classified, subsequent encounter (principal); E11.51 Type 2 diabetes mellitus with diabetic peripheral angiopathy without gangrene; I10 Essential (primary) hypertension; Z89.511 Acquired absence of right leg below knee
CPT/HCPCS: 36416

== ENCOUNTER 2018-03-19 14:29 | Outpatient (CLI) | payer MEDICAID ==
--- NOTE | 2018-03-19 16:08 | PRG ---
DATE OF SERVICE: 03/19/2018 HISTORY: Mr. Danilo Lopez is a very pleasant 82-year-old gentleman who presents to the Wound Center for evaluation of a nonhealing surgical wound of his right below the knee amputation stump. The pat ient underwent right below the knee amputation on 01/24/[address] Chris Fraga. The patient was readmitted to [facility] for a blister of his right below the knee amputation stump associated with erythema of the stump extending almost to the knee. During the patient's hospi gumaro stay, Mr. Lopez was seen by General Surgery. One region of the surgical wound from the right below the knee amputation was opened by Dr. Ashlie Allen. During the patient's hospital stay, nega tive pressure therapy was initiated, and upon discharge from [facility], the samantha zee was referred to the Wound Center for assistance with dressing changes of the wound VAC. The samantha zee was discharged to home on ciprofloxacin and Augmentin each for 2 weeks. The patient has compl eted a course of negative pressure therapy and is now receiving dressing changes of Aquacel AG packin g strips secured with gauze and tape. PHYSICAL EXAMINATION: VITAL SIGNS: Temperature 97.9, pulse 81, respirations 18, blood pressure 161/76. Accu-Chek 282. EXTREMITIES: A nonhealing surgical wound of the right below the knee amputation stump is present whi ch measures approximately 0.7 x 0.2 cm. The depth of the wound is approximately 2 cm. Granulation t issue is present within the wound margins. Nonviable tissue present within the wound margins was romulo rided with an excisional full-thickness debridement. No purulent drainage is associated with the wou nd. No cellulitis of the right below the knee amputation stump is appreciated. No maceration of the skin of the periwound is noted. No significant edema of the right below the knee amputation stump i s present on exam today. ASSESSMENT AND PLAN: 1. Nonhealing surgical wound of right below the knee amputation stump. The patient underwent right below the knee amputation on 01/24/[address] Chris Fraga. The patient has completed a course of negative pressure therapy and dressing changes of Aquacel AG packing strips secured with gauze and t ape will be continued with the assistance of the patient's family. I will see Mr. Lopez again in two weeks. 2. Diabetes mellitus. The patient's Accu-Chek in clinic today is 282. The patient has been reminde d that for optimal wound healing, his blood glucoses should remain below 150. 3. Hypertension. 4. Peripheral vascular disease.
== END 2018-03-19 14:30 | disposition home or self-care (01) ==
LOC: WCC 14:29
PROVIDERS: ATTEND Family Medicine
DX: T81.89XD Other complications of procedures, not elsewhere classified, subsequent encounter (principal); E11.9 Type 2 diabetes mellitus without complications; I10 Essential (primary) hypertension; I73.9 Peripheral vascular disease, unspecified

== ENCOUNTER 2018-04-02 09:37 | Outpatient (CLI) | payer MEDICAID, SELFPAY ==
[~2018-04-02 09:37] MED LIST: Lidocaine 2% Jelly 5 ML TUBE ONE; Sodium Chloride 0.9% 15 ML NEB ONE
--- NOTE | 2018-04-02 11:04 | PRG ---
DATE OF SERVICE: 04/02/2018 HISTORY: Mr. Danilo Lopez is a very pleasant 82-year-old gentleman who presents to the Wound Center for evaluation of a wound of his right below the knee amputation stump. The wound for which the melissa vázquez was last seen in the wound center also of his right below the knee amputation stump has healed c ompletely. The patient has been receiving dressing changes of Triple Antibiotic ointment followed by gauze and tape for the wound now present. The patient has no other complaints today. He denies any fever or chills. OBJECTIVE: VITAL SIGNS: Temperature 97.6, pulse 74, respirations 19, blood pressure 153/93. Accu-Chek 145. EXTREMITIES: A wound of the right medial below the knee amputation stump is present which measures a pproximately 1.3 x 1.2 cm. Necrotic and nonviable tissue present within the wound margins was debrid ed with an excisional full-thickness debridement with the use of scissors. No purulent drainage is a ssociated with the wound. No cellulitis of the right below the knee amputation stump is appreciated. No maceration of the skin of the periwound is noted. A popliteal pulse is palpable on exam today. No significant edema of the right below the knee amputation stump is present on today's exam. ASSESSMENT AND PLAN: 1. Ulceration of right medial below the knee amputation stump as described above. Dressing changes of Medihoney, followed by 4 x 4s secured with tape will be initiated today. These dressing changes a re to be performed on a daily basis or alternatively every other day after cleansing and irrigation w ith the assistance of the patient's family. I will see Mr. Lopez again in two weeks. 2. Diabetes mellitus. The patient's Accu-Chek in clinic today is 145. The patient has been reminde d that for optimal wound healing, his blood glucoses should remain below 150. 3. Hypertension. 4. Peripheral vascular disease.
== END 2018-04-02 09:38 | disposition home or self-care (01) ==
LOC: WCC 09:37
PROVIDERS: ATTEND Family Medicine
DX: L97.919 Non-pressure chronic ulcer of unspecified part of right lower leg with unspecified severity (principal); I10 Essential (primary) hypertension; E11.51 Type 2 diabetes mellitus with diabetic peripheral angiopathy without gangrene; Z89.511 Acquired absence of right leg below knee
CPT/HCPCS: 11042; A4218

== ENCOUNTER 2018-04-18 11:35 | Outpatient (CLI) | payer SELFPAY ==
--- NOTE | 2018-04-18 13:31 | PRG ---
DATE OF SERVICE: 04/18/2018 HISTORY: Mr. Danilo Lopez is a very pleasant 82-year-old gentleman who [facility] for evaluation of a wound of his right below the knee amputation stump. The wound for which the pat zebnt was previously seen in the [facility] also of his right below the knee amputation stump has he aled completely and remains healed. The patient has been receiving dressing changes of Medihoney for the wound now present. The patient has no other complaints today. He denies any fever or chills. OBJECTIVE: VITAL SIGNS: Temperature 97.7, pulse 78, respirations 17, blood pressure 176/81. Accu-Chek 160. EXTREMITIES: A wound of the right medial below the knee amputation stump is present which measures a pproximately 1.0 x 0.9 cm. Necrotic and nonviable tissue present within the wound margins was debrid ed with an excisional full-thickness debridement with the use of a curette and scissors. No purulent drainage is associated with the wound. No cellulitis of the right below the knee amputation stump i s appreciated. No maceration of the skin of the periwound is noted. A popliteal pulse is palpable o n exam today. No significant edema of the right below the knee amputation stump is present on today' s exam. Post-debridement measurements are approximately 1.0 x 1.0 cm. ASSESSMENT AND PLAN: 1. Ulceration of right medial below the knee amputation stump as described above. Dressing changes of Medihoney followed by 4 x 4s, secured with tape will be continued on a daily basis or alternativel y every other day after cleansing and irrigation with the assistance of the patient's family. I will see Mr. Lopez again in two weeks. 2. Diabetes mellitus. The patient's Accu-Chek in clinic today is 160. The patient has been reminde d that for optimal wound healing, his blood glucoses should remain below 150. 3. Hypertension. 4. Peripheral vascular disease.
[2018-04-18] MEDS ORDERED: Sodium Chloride 0.9% 15 ML NEB ONE (15:00)
== END 2018-04-18 11:36 | disposition home or self-care (01) ==
LOC: WCC 11:35
PROVIDERS: ATTEND Family Medicine
DX: T87.89 Other complications of amputation stump (principal); E11.622 Type 2 diabetes mellitus with other skin ulcer; L97.919 Non-pressure chronic ulcer of unspecified part of right lower leg with unspecified severity; I10 Essential (primary) hypertension; I73.9 Peripheral vascular disease, unspecified; Z89.511 Acquired absence of right leg below knee
CPT/HCPCS: 11042; A4218

== ENCOUNTER 2018-05-02 13:43 | Outpatient (CLI) | payer OTHER, SELFPAY ==
[2018-05-02] MEDS ORDERED: Sodium Chloride 0.9% 15 ML NEB ONE (15:51)
[2018-05-02] MEDS ORDERED: Lidocaine 2% Jelly 30 GM TUBE ONE (15:51)
--- NOTE | 2018-05-02 16:16 | PRG ---
DATE OF SERVICE: 05/02/2018 HISTORY: Mr. Danilo Lopez is a very pleasant 82-year-old gentleman who presents to the [facility] for evaluation of a wound of his right below the knee amputation stump. The wound for which the pat ient was previously seen in the [facility]. Also of his right below the knee amputation stump has healed completely and remains healed. The patient has been receiving dressing changes of Medihoney f or the wound that remains. The patient has no other complaints today. He denies any fever or chills . PHYSICAL EXAMINATION: VITAL SIGNS: Temperature 97.5, pulse 72, respirations 17, blood pressure 194/87. Accu-Chek 208. EXTREMITIES: A wound of the right medial below the knee amputation stump is present which measures a pproximately 0.4 x 0.5 cm. Necrotic and nonviable tissue present within the wound margins was debrid ed with an excisional full-thickness debridement with the use of scissors. No purulent drainage is a ssociated with the wound. Granulation tissue is present within the wound margins. No cellulitis of the right below the knee amputation stump is appreciated. No maceration of the skin of the periwound is noted. No significant edema of the right below the knee amputation stump is present on exam toda y. ASSESSMENT AND PLAN: 1. Ulceration of right medial below the knee amputation stump. As described above. Dressing change s of Medihoney followed by a Mepilex border are to be performed on a daily basis or alternatively reza ry other day after cleansing and irrigation with the assistance of the patient's family. I will see Mr. Lopez again in two weeks. 2. Diabetes mellitus. The patient's Accu-Chek in clinic today is 208. The patient has been reminde d that for optimal wound healing, his blood glucoses should remain below 150. 3. Hypertension. 4. Peripheral vascular disease.
== END 2018-05-02 13:44 | disposition home or self-care (01) ==
LOC: WCC 13:43
PROVIDERS: ATTEND Family Medicine
DX: E11.621 Type 2 diabetes mellitus with foot ulcer (principal); L97.819 Non-pressure chronic ulcer of other part of right lower leg with unspecified severity; I10 Essential (primary) hypertension; E11.51 Type 2 diabetes mellitus with diabetic peripheral angiopathy without gangrene; Z89.511 Acquired absence of right leg below knee
CPT/HCPCS: 11042; A4218